=== PATIENT | female | born 1955 | race Caucasian/White ===

== ENCOUNTER → 2019-06-19 | Outpatient (CLI) | payer MEDICARE, SELFPAY | PROVIDERS: Family Provider Family Medicine; Visit Provider Family Medicine | DX: Z12.31 Encounter for screening mammogram for malignant neoplasm of breast (principal) | CPT/HCPCS: 77067 ==

== ENCOUNTER 2019-07-27 06:28 | Outpatient (REF) | payer MEDICARE, SELFPAY ==
[2019-07-27 09:38] LABS: Estmated Average Glucose 134; Hemoglobin A1C 6.3 % (4.0-6.0)
[2019-07-27 11:10] LABS: Cholesterol 237 mg/dL (0-200); Glucose 103 mg/dL (65-115); HDL Cholesterol 103 mg/dL (60-100); LDL Cholesterol Calculated 112 mg/dL (50-129); LDL HDL Ratio 1.09 RATIO (0.00-3.22); Triglycerides 112 mg/dL (0-150)
== END 2019-07-27 06:29 | disposition home or self-care (01) ==
LOC: LAB 06:28
PROVIDERS: Family Provider Family Medicine; Visit Provider Dermatology
DX: Z01.89 Encounter for other specified special examinations (principal)
CPT/HCPCS: 80061; 82947; 83036

== ENCOUNTER 2020-04-21 12:03 | Outpatient (CLI) | payer MEDICARE, SELFPAY ==
--- NOTE | 2020-04-21 12:14 | XRR_ITS ---
PROCEDURE INFORMATION: Exam: XR Cervical Spine, 2 or 3 Views Exam date and time: 04/21/2020 12:31 PM Age: 65 years old Clinical indication: Neck pain; Additional info: Pain in neck TECHNIQUE: Imaging protocol: XR of the cervical spine, 3 views. Other technique: AP, lateral and AP open mouth odontoid views of the cervical spine are submitted. COMPARISON: CR Cervical Spine AP/Lat* [id number] 03/22/2017 10:12 AM FINDINGS: Bones/joints: 2.5 mm C3-C4 anterolisthesis. Moderate left C3-C4, right C4-C5 primary facet osteoarthritis. There is 3.4 mm anterolisthesis of C4 on C5, mild-moderate spondylosis. C5-6 and C6-7 degenerative disc disease with moderate spondylosis, slight retrolistheses. Soft tissues: Unremarkable. Dental: Edentulous maxilla and mandible. Other findings: Bilateral C5-C6 uncovertebral hypertrophy. XR/XR cervical spine 3V* [id number] IMPRESSION: 1. Degenerative changes as above. 2. No acute thoracic spinal bony abnormality identified.
== END 2020-04-21 12:04 | disposition home or self-care (01) ==
LOC: RAD 12:08
PROVIDERS: PCP Internal Medicine; Visit Provider Internal Medicine
DX: M54.2 Cervicalgia (principal)
CPT/HCPCS: 72040

== ENCOUNTER 2020-05-06 13:06 | Outpatient (CLI) | payer MEDICARE, SELFPAY ==
--- NOTE | 2020-05-06 13:12 | MR_ITS ---
WS: [id number] MRI CERVICAL SPINE HISTORY: SPONDYLOLYSIS OF CERVICAL SPINE COMPARISON: None available. C3 anterolisthesis by 2 mm and C4 anterolisthesis by 3 mm. Mild retrolisthesis of C5. Advanced degene rative disc disease at C5-6 and C6-7. Signal within the cervical cord is normal. Visualized posterior fossa is unremarkable. Craniocervical junction, C1 and C2 relationship, odontoid process and soft tissues are normal. C2-C3: Normal. C3-C4: Mild annular disc bulging with a shallow LEFT foraminal disc protrusion causing mild narrowing . C4-C5: Mild osteophytic ridging and annular disc bulging. Mild bilateral foraminal narrowing. C5-C6: Mild osteophytic ridging with mild encroachment upon the ventral thecal sac. Larger osteophyte encroaches into the LEFT foramen with mild stenosis. C6-C7: Mild osteophytic ridging without significant stenosis. C7-T1: Small central osteophyte or disc. No significant stenosis. Paraspinal soft tissue are normal. MR/MR cervical spin wo con* [id number] IMPRESSION: 1. Multilevel spondylitic changes, most significant at C5-6 and C6-7. 2. Mild anterolisthesis of C3 and C4. 3. No high-grade central stenosis. 4. Mild LEFT foraminal stenosis at C3-4 and C5-C6. Mild bilateral foraminal st enosis at C4-5.
== END 2020-05-06 13:07 | disposition home or self-care (01) ==
LOC: RADSHAW 13:10
PROVIDERS: PCP Internal Medicine; Visit Provider Nurse Practitioner Family
DX: M43.02 Spondylolysis, cervical region (principal); M48.02 Spinal stenosis, cervical region
CPT/HCPCS: 72141

== ENCOUNTER → 2020-05-08 10:41 | Outpatient (BNVA) | payer MEDICARE, SELFPAY | PROVIDERS: PCP Internal Medicine; Visit Provider Specialist | DX: R20.9 Unspecified disturbances of skin sensation (principal); R20.0 Anesthesia of skin; R20.2 Paresthesia of skin | CPT/HCPCS: 95910 ==

== ENCOUNTER 2020-05-19 13:39 | Outpatient (CLI) | payer MEDICARE, SELFPAY ==
--- NOTE | 2020-05-19 13:52 | XR_ITS ---
WS: [id number] DEXA (DUAL ENERGY X-RAY ABSORPTIOMETRY) Bone mineral density was performed using a [employer] machine. HISTORY: OSTEOPOROSIS COMPARISON: None available. Lumbar spine BMD (L1-L4): 1.047 g/cm2 T score: -1.1 Z score: 0.6 Total hip BMD: Left: 0.835 g/cm2. T score: -1.4 Z score: -0.1 Right: 0.850 g/cm2. T score: -1.3 Z score: 0.1 10 year probability of a major osteoporotic fracture is 10%. XR/XR DEXA axial skeleton* [id number] IMPRESSION: OSTEOPENIA based upon the WHO classification for females.
== END 2020-05-19 13:40 | disposition home or self-care (01) ==
LOC: RADWPI 13:44
PROVIDERS: PCP Internal Medicine; Visit Provider Internal Medicine
DX: M81.0 Age-related osteoporosis without current pathological fracture (principal); M85.89 Other specified disorders of bone density and structure, multiple sites
CPT/HCPCS: 77080

== ENCOUNTER 2020-06-25 10:51 | Outpatient (CLI) | payer MEDICARE, SELFPAY ==
--- NOTE | 2020-06-25 10:59 | MM_ITS ---
WS: [id number] BILATERAL SCREENING DIGITAL MAMMOGRAM WITH CAD HISTORY: SCREENING COMPARISON: 06/19/2019, 05/03/2018 and 04/21/2017 Bilateral CC and MLO views submitted. Computer aided detection analyzed. Breast composition: The breasts are extremely dense, which lowers the sensitivity of mammography. No suspicious masses, microcalcifications or architectural distortion. Stable 12 mm asymmetry in the med ial RIGHT breast seen best on the CC projection. Also noted on 05/03/2018 with no change. Bilateral s cattered calcifications are similar to prior studies. MM/[place] [id number] IMPRESSION: BI-RADS: 2-Benign FOLLOW UP: 1 Year Follow-up
== END 2020-06-25 10:52 | disposition home or self-care (01) ==
LOC: RADSHAW 10:58
PROVIDERS: PCP Internal Medicine; Visit Provider Internal Medicine
DX: Z12.31 Encounter for screening mammogram for malignant neoplasm of breast (principal)
CPT/HCPCS: 77067

== ENCOUNTER 2020-07-23 07:48 | Outpatient (CLI) | payer MEDICARE, SELFPAY ==
--- NOTE | 2020-07-23 08:10 | XR_ITS ---
WS: [id number] CERVICAL SPINE FLEXION EXTENSION TECHNIQUE: 3 views of the cervical spine: lateral neutral, flexion and extension views. CLINICAL INFORMATION: SPONDYLOLITHESIS CERVICAL REGION COMPARISON: None. FINDINGS: Straightening of the normal cervical lordosis. 3.4 mm anterolisthesis C3 on C4 and 3.6 mm anterolisth esis C4 on C5 in the neutral position. This increases slightly on flexion worse at C4-5 measuring 4.1 mm. This decreases on extension. Moderate spondylitic changes. Disc space narrowing worse at C5-C6 and C6-C7. Normal C1-2 articulation . XR/XR cervical spine fl/ex [id number] IMPRESSION: 1. Mild flexion instability at C3-C4 and C4-C5 worse at C4-5 described above. 2. Moderate spondylitic changes. 3. Disc space narrowing worse at C5-C6 and C6-C7.
== END 2020-07-23 07:49 | disposition home or self-care (01) ==
PROVIDERS: PCP Internal Medicine; Visit Provider Nurse Practitioner
DX: M43.12 Spondylolisthesis, cervical region (principal); M53.2X2 Spinal instabilities, cervical region
CPT/HCPCS: 72040

== ENCOUNTER 2021-09-15 09:03 | Outpatient (CLI) | payer MEDICARE, SELFPAY ==
--- NOTE | 2021-09-15 09:15 | MM_ITS ---
WS: [id number] BILATERAL SCREENING 3D TOMOSYNTHESIS DIGITAL MAMMOGRAM WITH CAD HISTORY: SCREENING COMPARISON: 06/25/2020 and 06/19/2019 Bilateral CC and MLO views submitted. Computer aided detection analyzed. Breast composition: The breasts are extremely dense, which lowers the sensitivity of mammography. No suspicious masses, microcalcifications or architectural distortion. Benign calcifications upper outer quadrant LEFT breast. MM/[place] [id number] IMPRESSION: BI-RADS: 2-Benign FOLLOW UP: 1 Year Follow-up
== END 2021-09-15 09:04 | disposition home or self-care (01) ==
LOC: RADSHAW 09:04
PROVIDERS: PCP Internal Medicine; Visit Provider Internal Medicine
DX: Z12.31 Encounter for screening mammogram for malignant neoplasm of breast (principal)
CPT/HCPCS: 77063; 77067

== ENCOUNTER 2022-04-20 06:00 | Outpatient (RCR) | payer MEDICARE, SELFPAY | END 2022-05-19 23:59 | disposition home or self-care (01) | LOC: SPT 06:00 | PROVIDERS: PCP Internal Medicine; Visit Provider Internal Medicine | DX: M43.02 Spondylolysis, cervical region (principal); M54.2 Cervicalgia | CPT/HCPCS: 97110; 97140; 97161 ==

== ENCOUNTER 2022-09-15 08:03 | Outpatient (CLI) | payer MEDICARE, SELFPAY ==
--- NOTE | 2022-09-15 08:13 | CT_ITS ---
WS: [id number] CT CALCIUM SCORE REASON FOR VISIT: FAMILY HISTORY OF OTHER CARDIOVASCULAR DISEASES; Coronary artery disease risk asse ssment COMPARISON: None TECHNIQUE: Noncontrast coronary CT in combination with quantitative analysis performed on a separate workstation were used to determine CACS (Agatston score) TOTAL EXAM DOSE: 45.06 mGy.cm ECG GATING: Prospective SCAN RANGE: Pulmonary artery bifurcation to Inferior aspect of heart COMPLICATIONS: None FINDINGS: Technical Quality/Examination Quality: Good Limitaiton: None OVERALL SCORES Total calcium score: 1045 Total volume score: 805 mm3 Percentile: 90th to 100 percentile for females between the ages of 65 and 69 ARTERY SCORES Left main coronary artery: 494 Left anterior descending artery: 47 Left circumflex artery: 23 Right coronary artery: 449 OTHER FINDINGS: Mediastinum: No mediastinal or hilar lymphadenopathy. Thoracic aorta: Slightly ectatic ascending thoracic aorta measuring 3.3 CM. Normal caliber descendin g thoracic aorta. Lungs: Normal. Upper Abdomen: Normal GE junction. MINIMAL: 1-10 MILD: 11-100 MODERATE: 101-400 SEVERE:>400 CT/CT heart w calcium score [id number] IMPRESSION: Severe coronary artery disease based on total calcium score correct ed for patient's age and gender GRADING OF CORONARY ARTERY DISEASE (BASED ON TOTAL CALCIUM SCORE) NO EVIDENCE OF CAD: 0 calcium score
== END 2022-09-15 08:04 | disposition home or self-care (01) ==
PROVIDERS: PCP Internal Medicine; Visit Provider Internal Medicine
DX: Z82.49 Family history of ischemic heart disease and other diseases of the circulatory system (principal)
CPT/HCPCS: 75571

== ENCOUNTER 2022-09-24 11:05 | Outpatient (CLI) | payer MEDICARE, SELFPAY ==
--- NOTE | 2022-09-24 11:16 | MM_ITS ---
WS: [id number] BILATERAL SCREENING DIGITAL TOMOSYNTHESIS MAMMOGRAM WITH CAD HISTORY: SCREENING COMPARISON: 09/15/2021, 06/25/2020 Bilateral CC and MLO views with tomosynthesis and synthetic mammography submitted. Computer aided det ection analyzed. Breast composition: The breasts are extremely dense, which lowers the sensitivity of mammography. No suspicious masses, microcalcifications or architectural distortion. Benign clusters of calcifications in the lateral aspect of each breast. Additional scattered cysts benign calcifications. MM/[place] [id number] IMPRESSION: BI-RADS: 2-Benign FOLLOW UP: 1 Year Follow-up
== END 2022-09-24 11:06 | disposition home or self-care (01) ==
PROVIDERS: PCP Internal Medicine; Visit Provider Internal Medicine
DX: Z12.31 Encounter for screening mammogram for malignant neoplasm of breast (principal)
CPT/HCPCS: 77063; 77067

== ENCOUNTER → 2022-10-05 10:16 | Outpatient (BNVA) | payer MEDICARE, SELFPAY | PROVIDERS: PCP Internal Medicine; Referring Provider Internal Medicine; Visit Provider Anesthesiology Pain Medicine | DX: M54.12 Radiculopathy, cervical region (principal); M47.812 Spondylosis without myelopathy or radiculopathy, cervical region; R20.0 Anesthesia of skin; R20.2 Paresthesia of skin | CPT/HCPCS: 72050; 99204 ==

== ENCOUNTER → 2022-10-19 08:38 | Outpatient (BNVA) | payer MEDICARE, SELFPAY | PROVIDERS: PCP Internal Medicine; Visit Provider Anesthesiology Pain Medicine | DX: M79.18 Myalgia, other site (principal); M47.812 Spondylosis without myelopathy or radiculopathy, cervical region; R20.0 Anesthesia of skin; R20.2 Paresthesia of skin | CPT/HCPCS: 20553; 99213 ==

== ENCOUNTER → 2022-11-10 13:18 | Outpatient (BNVA) | payer MEDICARE, SELFPAY | PROVIDERS: PCP Internal Medicine; Visit Provider Internal Medicine | DX: R07.9 Chest pain, unspecified (principal); I10 Essential (primary) hypertension; E78.5 Hyperlipidemia, unspecified; Z82.49 Family history of ischemic heart disease and other diseases of the circulatory system; I25.10 Atherosclerotic heart disease of native coronary artery without angina pectoris | CPT/HCPCS: 93005; 99204 ==

== ENCOUNTER → 2022-11-22 08:41 | Outpatient (BNVA) | payer MEDICARE, SELFPAY | PROVIDERS: PCP Internal Medicine; Visit Provider Anesthesiology Pain Medicine | DX: M47.812 Spondylosis without myelopathy or radiculopathy, cervical region (principal); R20.0 Anesthesia of skin; R20.2 Paresthesia of skin | CPT/HCPCS: 99214 ==

== ENCOUNTER 2022-11-30 09:29 | Outpatient (CLI) | payer MEDICARE, SELFPAY ==
--- NOTE | 2022-11-30 | ECG_ITS ---
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 Interpretive Statements NAME OF STUDY: EXERCISE SESTAMIBI STRESS TEST INDICATION: [Chest Pain] EXERCISE DATA: The patient was exercised by Phil protocol. Baseline heart rate was 78 beats per minute. Baseline blood pressure was 111/65 millimeters of mercury. Target heart rate was 131 beats per minute. Maximum heart rate achieved was 147 which was 112% of the target heart rate. Maximum blood pressure was 124/54 millimeters of mercury. Total exercise time was 3 minutes 29 seconds. Maximum METs achieved was 4.6. The reason for ending the test was target heart rate achieved. The patient complained of shortness of breath during the stress test, which then resolved at the end of the test. ELECTROCARDIOGRAM: BASELINE: Showed sinus rhythm, normal axis, no significant ST-T changes at the baseline noted. [] EXERCISE: At the peak exercise level, [] No significant ST-T changes suggestive of ischemia noted. PVCs are seen. [] RECOVERY: During the recovery period, heart rate dropped appropriately. No significant ST-T changes in the recovery suggestive of ischemia noted. [] CONCLUSION: 1. Exercise capacity is poor. 2. Heart rate response was appropriate 3. Blood pressure response was appropriate 4. Symptoms not suggestive of ischemia. 5. Electrocardiogram portion of the stress test was not suggestive of ischemia. 6. Nuclear scan will be documented separately. Electronically Signed On 12-10-2022 14:44:37 CDT by Piyush Macias M.D. [id number]
[2022-11-30 09:50] VITALS: BMI 24.7
--- NOTE | 2022-11-30 09:51 | NMCV_ITS ---
NM ventura perf SPECT r/s* [id number] Melanie Ko Age: 67 Gender: F : 1955 Exam Date: 11/30/2022 10:55 Ordering Phys: Piyush Macias M.D ([email or web address]) Technologist: RAIZA Ibanez Exam Location: [facility] Indications: CHEST PAIN STRESS TEST Please [facility] IMAGE PROTOCOL Rest/Stress 1 Exercise Day Radiopharmaceutical Dose (mCi) Administration Site Administered by Rest: Tc-99m 10.4 IV Anand Gaines, BAKERY HELPER Sestamibi Stress:Tc-99m 32.7 IV Anand Gaines, BAKERY HELPER Sestamibi Rest: 30-Nov-2022 60 Discovery 630 Stress: 30-Nov-2022 15 Discovery 630 Radiopharmaceutical was injected at 85 % maximum heart rate. Images obtained in supine and prone position. SPECT RESULTS Technical Quality: Excellent Raw Data Analysis: Normal Image Corrections: No attenuation or motion correction applied Summed Stress Score: 0 Summed Rest Score: 0 Summed Difference Score: 0 PERFUSION FINDINGS SPECT images demonstrate homogeneous tracer distribution throughout the myocardium. FUNCTIONAL RESULTS (calculated via Gated SPECT) Stress Image LV EF (%): 89 Stress EDV (mL):44 TID: 0.96 Stress ESV (mL):5 FUNCTIONAL FINDINGS: There is normal left ventricular systolic function. IMPRESSIONS 1. Normal myocardial perfusion imaging with no evidence of ischemia 2. LV systolic function is normal Piyush Macias MD (Electronically Signed) Final Date: 06 December 2022 17:39 S
[2022-11-30 12:30] VITALS: BP 157/86; PULSE 91
--- NOTE | 2022-11-30 14:30 | USCV_ITS ---
Melanie Ko Age: 67 Gender: F : 1955 Exam Date: 11/30/2022 10:29 Ordering Phys: Piyush Macias M.D ([email or web address]) Technologist: Dannie Jennings Exam Location: [facility] [place] Indication: chest pain BP: 120 / 70 HR: 72 Rhythm: Sinus Technical Quality: Adequate MEASUREMENTS (Male / Female) Normal Values 2D ECHO LV Diastolic Diameter PLAX 3.7 cm 4.2 - 5.9 / 3.9 - 5.3 cm LV Systolic Diameter PLAX 2.0 cm IVS Diastolic Thickness 1.0 cm 0.6 - 1.0 / 0.6 - 0.9 cm IVS Systolic Thickness 1.4 cm LVPW Diastolic Thickness 0.8 cm 0.6 - 1.0 / 0.6 - 0.9 cm LVPW Systolic Thickness 1.4 cm LVOT Diameter 2.0 cm LV Ejection Fraction 2D Teich 72.6 % LV Ejection Fraction MOD 2C 77.7 % LV Ejection Fraction 2C AL 77.7 % LA Diameter 3.4 cm Aorta at Sinotubular Diameter 2.7 cm IVC Diameter 0.7 cm M-MODE Aortic Annulus Diameter 3.2 cm LA Ao Ratio MM 1.1 MV E Point Septal Separation 0.5 cm DOPPLER AV Peak Velocity 127.0 cm/s LVOT Peak Velocity 91.0 cm/s AV Area Cont Eq vti 2.6 cm squared AV Area Cont Eq pk 2.3 cm squared MV Area PHT 5.4 cm squared Mitral E to A Ratio 1.1 MV E' Velocity 50.0 cm/s Mitral E to MV E' Ratio 7.7 Mitral E to LV E' Lateral Ratio 8.2 Mitral E to LV E' Septal Ratio 7.4 TR Peak Velocity 194.7 cm/s TR Peak Gradient 15.2 mmHg TV Peak E Velocity 111.0 cm/s Right Atrial Pressure 3.0 mmHg Pulmonary Artery Systolic Pressu 18.2 mmHg RV Acceleration Time 0.2 s FINDINGS Left Ventricle Left ventricle is normal size. LV systolic function is normal with EF of 60-65%. No regional wall motion abnormalities are seen. Right Ventricle Normal in size and function Right Atrium Normal in size Left Atrium Normal in size Mitral Valve Structurally normal mitral valve. Mild mitral regurgitation. Aortic Valve Structurally normal aortic valve. No significant stenosis or regurgitation. Tricuspid Valve Mild tricuspid regurgitation. Pulmonary artery systolic pressure is normal. Pulmonic Valve Not well-visualized Pericardium Normal Aorta Normal in size IVC Appears to be normal CONCLUSIONS LV systolic function is normal with EF of 60 to 65%. Mild mitral regurgitation Mild tricuspid regurgitation No comparisons are available Piyush Macias MD (Electronically Signed) Final Date: 11 December 2022 13:12 S
== END 2022-11-30 09:30 | disposition home or self-care (01) ==
LOC: CDL 09:29
PROVIDERS: PCP Internal Medicine; Visit Provider Internal Medicine
DX: R07.9 Chest pain, unspecified (principal); I34.0 Nonrheumatic mitral (valve) insufficiency; I07.1 Rheumatic tricuspid insufficiency; R06.02 Shortness of breath
CPT/HCPCS: 36415; 78452; 93017; 93306; A9500

== ENCOUNTER → 2022-12-28 08:50 | Outpatient (BNVA) | payer MEDICARE, SELFPAY | PROVIDERS: PCP Internal Medicine; Visit Provider Anesthesiology Pain Medicine | DX: M79.18 Myalgia, other site (principal); M47.812 Spondylosis without myelopathy or radiculopathy, cervical region; R20.0 Anesthesia of skin; R20.2 Paresthesia of skin | CPT/HCPCS: 20553; 99214 ==

== ENCOUNTER → 2023-01-12 14:05 | Outpatient (BNVA) | payer MEDICARE, SELFPAY | PROVIDERS: PCP Internal Medicine; Visit Provider Internal Medicine | DX: I25.10 Atherosclerotic heart disease of native coronary artery without angina pectoris (principal); Z87.891 Personal history of nicotine dependence | CPT/HCPCS: 99214 ==

== ENCOUNTER 2023-02-09 14:48 | Emergency (ER) | payer MEDICARE, SELFPAY ==
[2023-02-09 14:55] VITALS: BP 131/70; PULSE 88; RESP 15; TEMP 36.4; O2SAT 97; BMI 24.0
[2023-02-09 15:01] LABS: Glucose Point of Care 117 mg/dL (70-110)
--- NOTE | 2023-02-09 15:02 | ECG_ITS ---
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 Measurements Intervals [place] Rate: 87 P: 66 MO: 160 QRS: 58 QRSD: 82 T: 63 QT: 358 QTc: 431 Interpretive Statements SINUS RHYTHM POSSIBLE LEFT ATRIAL ENLARGEMENT [-0.1mV P-WAVE IN V1/V2] Compared to ECG 11/10/2022 13:28:29 No significant changes Electronically Signed On 02-09-2023 20:06:18 CDT by Tari Maldonado M.D. [id number] f
--- NOTE | 2023-02-09 15:06 | CT_ITS ---
WS: [id number] CT HEAD TECHNIQUE: Noncontrast CT of the head obtained from the skullbase to the vertex. CLINICAL INFORMATION: ams, dizziness COMPARISON: None. DLP: 1177.[address] scans at [facility] use at least one of these dose optimization techniques: automated e xposure control; mA and/or kV adjustment per patient size (includes targeted exams where dose is matc hed to clinical indication); or iterative reconstruction. FINDINGS: No evidence of intracranial hemorrhage or mass effect. Ventricular system and basal cisterns are medina nt. Moderate small vessel changes. Moderate parenchymal volume loss. Tiny chronic lacunar infarcts in the LEFT thalamus. Cavernous carotid calcification. Mild mucosal thickening in the ethmoid air cells and sphenoid sinuses. Mucosal thickening LEFT mastoi d tip. RIGHT mastoid air cells well aerated. Normal posterior nasopharynx. IMPRESSION: 1. No evidence of intracranial hemorrhage or mass effect. 2. Moderate small vessel changes. Moderate parenchymal volume loss. 3. Tiny chronic lacunar infarcts LEFT thalamus. 4. Intracranial vascular calcification. 5. No acute intracranial findings.
[2023-02-09 15:12] VITALS: BP 131/70; PULSE 76; RESP 16; O2SAT 97
[2023-02-09 15:35] LABS: Basophils # 0.1 10^3/uL (0.0-0.1); Basophils % 0.7 %; Eosinophils # 0.1 10^3/uL (0.0-0.8); Eosinophils % 1.1 %; Hematocrit 38.2 % (36-47); Lymphocytes % 27.2 %; Mean Corpuscular HGB Conc 31.7 g/dL (30-55); Mean Corpuscular Hemoglobin 29.7 pg (27-33); Mean Corpuscular Volume 93.6 fl (85-98); Mean Platelet Volume 11.9 fL (7.4-10.4); Monocytes # 0.5 10^3/uL (0.2-0.9); Monocytes % 6.4 %; Neutrophils # 4.85 10^3/uL (1.8-7.7); Neutrophils % 64.5 %; Nucleated Red Blood Cells % 0 %; Platelet Count 247 10^3/cmm (157-399); Red Blood Count 4.08 10^6/uL (3.85-5.65); Red Cell Distribution Width 13.1 % (12.1-15.1); White Blood Count 7.51 10^3/uL (3.29-11.43)
[2023-02-09 15:37] LABS: Troponin(5th) Baseline 15 ng/L (0-10)
[2023-02-09 15:39] LABS: Alanine Aminotransferase 12 U/L (0-33); Albumin Level 4.8 g/dL (3.5-5.2); Alkaline Phosphatase 56 U/L (35-105); Anion Gap 19.8 (5-19); Aspartate Amino Transferase 24 U/L (0-32); Blood Urea Nitrogen 33 mg/dL (8-23); Calcium 10.3 mg/dL (8.5-10.5); Carbon Dioxide 26 mmol/L (22-29); Chloride 96 mmol/L (98-107); Globulin 3.1 g/dL (1.3-4.6); Glomerular Filtration Rate 28.2 mL/min (90-130); Glucose 126 mg/dL (65-115); Osmolality Calculated 295 mOsm/kg (285-295); Potassium 3.8 mmol/L (3.5-5.1); Sodium 138 mmol/L (136-145); Total Bilirubin 0.2 mg/dL (0.15-1.2); Total Protein 7.9 g/dL (6.6-8.7)
--- NOTE | 2023-02-09 16:01 | W.ED.AMS ---
HPI - Altered Mental Status General: Chief Complaint: Altered Mental Status Stated Complaint: AMS Time Seen by Provider: 02/09/23 14:53 History of Present Illness: To the ER with complaints of not feeling good. She just feels disorientated and off. Patient said she was fine for breakfast and about 2 hours later she started vomiting became dizzy and just progressed downhill from there. Patient cannot really elicit exact findings but she does feels not right possibly mild confusion. This was confirmed by her . Review of Systems General: Reports: 10 or more systems reviewed and unremarkable except in HPI and below PFSH ED PFSH: Social History Smoking and tobacco status: former smoker Quit status (tobacco): has quit using tobacco Second hand smoke exposure: No Smoking risk assessment/counseling performed?: No Alcohol intake: never Desire information about alcohol rehabilitation?: No Counseling given: No Substance/Drug Use: never Lives independently: Yes Household members: spouse Marital status: Highest education level completed: High School Graduate Special andreina needs: No Physical Exam Const: COMMON NORMALS: no acute distress, no limitations, healthy appearing, alert and well nourished HENMT: COMMON NORMALS: normocephalic, atraumatic, hearing grossly normal bilaterally, external ears normal, Normal external nose present and moist oral mucous membranes HEAD & SCALP: normocephalic and atraumatic NOSE: Normal external nose present EXTERNAL EAR: Yes external ears normal Eye: COMMON NORMALS: Equal, round and reactive pupils present, EOMs intact bilaterally, conjunctivae normal and no scleral icterus CONJUNCTIVA: Yes conjunctivae normal PUPIL: Yes Equal, round and reactive pupils present Neck/C-Spine: COMMON NORMALS: full ROM, no lymphadenopathy, supple, no meningeal signs, no JVD and Thyroid normal THYROID: Thyroid normal Lymph: LYMPHATIC: no lymphadenopathy noted and no lymphedema noted Chest: COMMONS NORMALS: normal inspection of the chest and normal palpation of entire chest wall Resp: COMMON NORMALS: normal respiratory effort, No retractions, No use of accessory muscles and clear to auscultation bilaterally AUSCULTATION: clear to auscultation bilaterally Cardio: COMMON NORMALS: no JVD, regular rate, regular rhythm, S1 normal heart sound present, S2 normal heart sound present, No gallops present (Cardio), No clicks present (Cardio), No murmurs present (Cardio) and No rub (Cardio) RATE: regular rate RHYTHM: regular rhythm HEART SOUNDS: S1 normal heart sound present and S2 normal heart sound present GI: COMMON NORMALS: Normal to inspection, nondistended, normoactive bowel sounds present, Soft to palpation, non-tender, No hepatosplenomegaly present and no masses PALPATION: Yes Soft to palpation and Yes No hepatosplenomegaly present : COMMON NORMALS: Yes no CVA tenderness BLADDER/KIDNEY EXAM: Yes no CVA tenderness Back/Pelvis: COMMON NORMALS: no CVA tenderness Neuro: SENSORIUM/ORIENTATION: Yes alert MENINGEAL SIGNS: Yes no meningeal signs Course Vital Signs: Vital signs: Vital Signs Temperature 97.5 F L 02/09/23 14:55 Pulse Rate 76 02/09/23 15:12 Respiratory Rate 16 02/09/23 15:12 Blood Pressure 131/70 02/09/23 15:12 Pulse Oximetry 97 02/09/23 15:12 Oxygen Delivery Me thod Room Air 02/09/23 14:55 MDM - Altered Mental Status Medical Decision Making Presents to the ER with complaints of just being off and having altered mental status. But cannot really elicit any more information on that. Lab work was obtained as well as EKG serial troponins and head CT all of which are essentially benign. Patient's BUN/creatinine was slightly elevated at 3 and 1.8. Patient was given 2 L of normal saline in the ER for she is able to produce urine. Urine was negative. Had an extensive talk about these labs with her and her . Patient will go home and see if things resolve on her own. Patient knows she can come back here at any time for further evaluation and treatment. Differential Diagnosis Likely altered mental status; Unlikely alcoholic intoxication, delirium, dementia, hypoglycemia, hyponatremia, subarachnoid hemorrhage or sepsis Medical Records I reviewed the patient's medical records. Lab Data I reviewed the patient's lab results. 02/09/23 14:51 02/09/23 14:51 Laboratory Results WBC 7.51 10^3/uL (3.29-11.43) 02/09/23 14:51 RBC 4.08 10^6/uL (3.85-5.65) 02/09/23 14:51 Hgb 12.10 g/dL (11.27-16.99) 02/09/23 14:51 Hct 38.2 % (36-47) 02/09/23 14:51 MCV 93.6 fl (85-98) 02/09/23 14:51 MCH 29.7 pg (27-33) 02/09/23 14:51 MCHC 31.7 g/dL (30-55) 02/09/23 14:51 RDW 13.1 % (12.1-15.1) 02/09/23 14:51 Plt Count 247 10^3/cmm (157-399) 02/09/23 14:51 MPV 11.9 fL (7.4-10.4) H 02/09/23 14:51 Neut % (Auto) 64.5 % 02/09/23 14:51 Lymph % (Auto) 27.2 % 02/09/23 14:51 Menard % (Auto) 6.4 % 02/09/23 14:51 Eos % (Auto) 1.1 % 02/09/23 14:51 Baso % (Auto) 0.7 % 02/09/23 14:51 Neut # (Auto) 4.85 10^3/uL (1.8-7.7) 02/09/23 14:51 Lymph # (Auto) 2.0 10^3/uL (0.8-4.8) 02/09/23 14:51 Menard # (Auto) 0.5 10^3/uL (0.2-0.9) 02/09/23 14:51 Eos # (Auto) 0.1 10^3/uL (0.0-0.8) 02/09/23 14:51 Baso # (Auto) 0.1 10^3/uL (0.0-0.1) 02/09/23 14:51 Nucleated RBC % (auto) 0 % 02/09/23 14:51 Nucleated RBCs # 0.0 /100WBC 02/09/23 14:51 Sodium 138 mmol/L (136-145) 02/09/23 14:51 Potassium 3.8 mmol/L (3.5-5.1) 02/09/23 14:51 Chloride 96 mmol/L (98-107) L 02/09/23 14:51 Carbon Dioxide 26 mmol/L (22-29) 02/09/23 14:51 Anion Gap 19.8 (5-19) H 02/09/23 14:51 BUN 33 mg/dL (8-23) H 02/09/23 14:51 Creatinine 1.8 mg/dL (0.5-0.9) H 02/09/23 14:51 GFR Calculation 28.2 mL/min (90-130) L 02/09/23 14:51 Glucose 126 mg/dL (65-115) H 02/09/23 14:51 POC Glucose 117 mg/dL (70-110) H 02/09/23 14:58 Calculated Osmolality 295 mOsm/kg (285-295) 02/09/23 14:51 Calcium 10.3 mg/dL (8.5-10.5) 02/09/23 14:51 Magnesium 2.0 mg/dL (1.7-2.3) 02/09/23 14:51 Total Bilirubin 0.2 mg/dL (0.15-1.2) 02/09/23 14:51 AST 24 U/L (0-32) 02/09/23 14:51 ALT 12 U/L (0-33) 02/09/23 14:51 Alkaline Phosphatase 56 U/L (35-105) 02/09/23 14:51 Troponin T Baseline 15 ng/L (0-10) H 02/09/23 14:51 Troponin T 120 Minute 14.15 ng/L (0-10) H 02/09/23 17:09 Delta Troponin T -0.85 ABS# (0-10) L 02/09/23 17:09 C-Reactive Protein 3.0 mg/L (0.0-4.9) 02/09/23 14:51 Total Protein 7.9 g/dL (6.6-8.7) 02/09/23 14:51 Albumin 4.8 g/dL (3.5-5.2) 02/09/23 14:51 Globulin 3.1 g/dL (1.3-4.6) 02/09/23 14:51 Urine Color Yellow (Yellow) 02/09/23 17:45 Urine Appearance Clear (CLEAR) 02/09/23 17:45 Urine pH 5 (5-7) 02/09/23 17:45 Ur Specific [place] 1.015 (1.005-1.030) 02/09/23 17:45 Urine Protein Neg (Negative) 02/09/23 17:45 Urine Glucose (UA) Norm (Normal) 02/09/23 17:45 Urine Ketones 2+ (Negative) H 02/09/23 17:45 Urine Blood Neg (Negative) 02/09/23 17:45 Urine Nitrate Negative (Negative) 02/09/23 17:45 Urine Bilirubin Neg (Negative) 02/09/23 17:45 Urine Urobilinogen Norm mg/dL (Negative) 02/09/23 17:45 Ur Leukocyte Esterase Negative (Negative) 02/09/23 17:45 Urine Opiates Screen Positive ng/mL (Negative) H 02/09/23 17:45 Ur Barbiturates Screen Negative ng/mL (Negative) 02/09/23 17:45 Ur Phencyclidine Scrn Negative ng/mL (Negative) 02/09/23 17:45 Ur Amphetamines Screen Negative ng/mL (Negative) 02/09/23 17:45 U Benzodiazepines Scrn Negative ng/mL (Negative) 02/09/23 17:45 Urine Cocaine Screen Negative ng/mL (Negative) 02/09/23 17:45 U Marijuana (THC) Screen Positive ng/mL (Negative) H 02/09/23 17:45 EKG Data EKG 1: I personally reviewed and interpreted this EKG as follows: EKG interpretation date: 02/09/23 EKG interpretation time: 15:02 Prior EKG tracings: not available for review Interpretation: EKG showed ventricular rate 87 beats minute, IL interval 160, QRS duration 82, QTc of 402, sinus rhythm, possible left atrial argument EKG 2: I personally reviewed and interpreted this EKG as follows: EKG interpretation date: 02/09/23 EKG interpretation time: 17:18 Prior EKG tracings: available for review Interpretation: EKG showed ventricular rate 80 bpm, IL interval 175, QRS duration 85, QTc 419, sinus rhythm, no ST-T wave changes Discharge Plan Discharge Patient Disposition: Home Clinical Impression: Altered mental status Qualifiers: Altered mental status type: transient alteration of awareness Qualified Code(s): R40.4 - Transient alteration of awareness Condition: Stable Prescriptions: No Action lisinopril 2.5 mg tablet 2.5 mg PO DAILY levothyroxine [Euthyrox] 25 mcg tablet 50 mcg PO DAILY duloxetine 60 mg capsule,delayed release(DR/EC) 60 mg PO DAILY simvastatin 40 mg tablet 40 mg PO QPM baclofen 20 mg tablet 20 mg PO DAILY PRN (Reason: Pain) Discharge Orders: Discharge ED (Routine); Ordered 02/09/23 Ordered By: Christian Hernandez Referrals: Mony Mariscal MD [Primary Care Provider] - 1 week Patient Instructions: Altered Mental Status (ED) Activity Restrictions/Additional Instructions: Please follow-up with your family practice physician in the next week or sooner as needed. Please return to the ER if symptoms worsen. Coding Level of Care Code ED Safety Sitter for Angelique Torres
[2023-02-09] MEDS: sodium chloride 0.9% 1,000 ML 999 ML IV (16:04)
--- NOTE | 2023-02-09 17:06 | ECG_ITS ---
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 Measurements Intervals [place] Rate: 80 P: 64 WI: 175 QRS: 56 QRSD: 85 T: 60 QT: 383 QTc: 442 Interpretive Statements SINUS RHYTHM Compared to ECG 02/09/2023 15:02:55 No significant changes Electronically Signed On 02-09-2023 20:55:19 CDT by Tari Maldonado M.D. [email or web address], [id number]
[2023-02-09 17:57] LABS: Troponin 5 2HR 14.15 ng/L (0-10)
[2023-02-09 17:58] LABS: Troponin 5 2HR Delta -0.85 ABS# (0-10)
[2023-02-09 18:00] LABS: Add Urine Microscopic? NO; Charge for UA Resulting for Rev
[2023-02-09 18:06] LABS: Bilirubin Urine Neg (Negative); Blood Urine Neg (Negative); Glucose Urine UA Norm (Normal); Ketones Urine 2+ (Negative); Leukocyte Esterase Urine Negative (Negative); Nitrate Urine Negative (Negative); Protein Urine Neg (Negative); Specific Gravity, Urine 1.015 (1.005-1.030); Urine Appearance Clear (CLEAR); Urine Color Yellow (Yellow); Urobilinogen Urine Norm (Negative); pH Urine 5 (5-7)
[2023-02-09 18:15] LABS: Amphetamines Screen Urine Negative (Negative); Barbiturates Screen Urine Negative (Negative); Benzodiazepines Screen Urine Negative (Negative); Cocaine Screen Urine Negative (Negative); Opiate Screen Urine Positive (Negative); PCP Screen Urine Negative (Negative); THC Screen Urine Positive (Negative)
== END 2023-02-09 19:13 | disposition home or self-care (01) ==
PROVIDERS: Emergency Provider Emergency Medicine; PCP Internal Medicine
DX: R40.4 Transient alteration of awareness (principal); Z87.891 Personal history of nicotine dependence
CPT/HCPCS: 36415; 36416; 70450; 80053; 80306; 81003; 82962; 83735; 84484; 85025; 86140; 93005; 99285; J7030

== ENCOUNTER → 2023-03-01 09:04 | Outpatient (BNVA) | payer MEDICARE, SELFPAY | PROVIDERS: PCP Internal Medicine; Visit Provider Anesthesiology Pain Medicine | DX: R20.0 Anesthesia of skin; R20.2 Paresthesia of skin; M47.812 Spondylosis without myelopathy or radiculopathy, cervical region | CPT/HCPCS: 99213 ==

== ENCOUNTER → 2023-03-21 10:02 | Outpatient (BNVA) | payer MEDICARE, SELFPAY | PROVIDERS: PCP Internal Medicine; Visit Provider Anesthesiology Pain Medicine | DX: M79.18 Myalgia, other site (principal); M47.812 Spondylosis without myelopathy or radiculopathy, cervical region; R20.0 Anesthesia of skin; R20.2 Paresthesia of skin; M54.9 Dorsalgia, unspecified | CPT/HCPCS: 20553; 99214; J1030; J3490 ==

== ENCOUNTER → 2023-05-17 12:01 | Outpatient (BNVA) | payer MEDICARE, SELFPAY | PROVIDERS: PCP Internal Medicine; Visit Provider Emergency Medicine | DX: M12.511 Traumatic arthropathy, right shoulder (principal) | CPT/HCPCS: 73030 ==

== ENCOUNTER → 2023-05-23 09:15 | Outpatient (BNVA) | payer MEDICARE, SELFPAY | PROVIDERS: PCP Internal Medicine; Visit Provider Anesthesiology Pain Medicine | DX: M79.18 Myalgia, other site (principal); R20.0 Anesthesia of skin; R20.2 Paresthesia of skin; M47.812 Spondylosis without myelopathy or radiculopathy, cervical region | CPT/HCPCS: 20553; 99214; J1030; J3490 ==

== ENCOUNTER 2023-08-08 08:34 | Outpatient (CLI) | payer MEDICARE, SELFPAY ==
--- NOTE | 2023-08-08 08:41 | MR_ITS ---
WS: [id number] MRI RIGHT SHOULDER HISTORY: PAIN IN R SHOULDER/ROTATOR CUFF TEAR VS ?FRACTURE COMPARISON: Radiograph 05/17/2023 TECHNIQUE: Multiplanar sequences of the shoulder joint are submitted. Patient was in significant pain during this MRI evaluation. Some of the sequences are limited by bia on. Marrow edema in the humeral head extending into the proximal humerus. There is a concave defect in th e posterolateral humeral head with an associated avulsion fracture. This is a site of the greatest am ount of edema. Humeral head is high riding also nearly abutting the undersurface of the acromion. Mild AC joint arthritis. There is a small amount of edema with fluid extending to the AC joint. No os acromiale. Normal position of the biceps tendon. Moderate subacromial impingement upon the humeral head. There is abnormal signal involving the distal supraspinatus tendon beginning at the level of the acromion. Insertion site tear near the avulsion f racture. There is significant fraying along the supraspinatus tendon and tendinopathy. No retraction of the tendon. Infraspinatus and subscapularis tendons are intact. There is a large amount of fluid i n the subscapularis bursa. Mild fluid distention of the axillary pouch. Abnormal signal through the anterior labrum. Highly suspicious for an anterior labral tear. No fractu re or marrow edema in the glenoid. IMPRESSION: 1. Acute trabecular injury and fracture involving the posterolateral humeral head. There is a defect in the posterolateral humeral head with the evulsion fracture which could potentially be a Hill-Sach s impaction fracture. 2. Subacromial impingement upon the supraspinatus tendon. 3. Distal tendinopathy with fraying of the supraspinatus tendon. 4. Insertion site of the supraspinatus tendon is at the site of the acute impaction fracture. 5. Avulsed anterior labrum. No glenoid edema. 6. Moderate size joint effusion.
== END 2023-08-08 08:35 | disposition home or self-care (01) ==
LOC: RAD 08:35
PROVIDERS: PCP Internal Medicine; Visit Provider Internal Medicine
DX: S42.291A Other displaced fracture of upper end of right humerus, initial encounter for closed fracture (principal); X58.XXXA Exposure to other specified factors, initial encounter; M75.41 Impingement syndrome of right shoulder; M25.411 Effusion, right shoulder
CPT/HCPCS: 73221

== ENCOUNTER → 2023-08-11 14:28 | Outpatient (BNVA) | payer MEDICARE, SELFPAY | PROVIDERS: PCP Internal Medicine; Referring Provider Internal Medicine; Visit Provider Student in an Organized Health Care Education/Training Program | DX: S42.291A Other displaced fracture of upper end of right humerus, initial encounter for closed fracture; S46.001A Unspecified injury of muscle(s) and tendon(s) of the rotator cuff of right shoulder, initial encounter; X58.XXXA Exposure to other specified factors, initial encounter | CPT/HCPCS: 73030; 99204 ==

== ENCOUNTER → 2023-08-22 08:27 | Outpatient (BNVA) | payer MEDICARE, SELFPAY | PROVIDERS: PCP Internal Medicine; Visit Provider Anesthesiology Pain Medicine | DX: M79.18 Myalgia, other site (principal); M54.9 Dorsalgia, unspecified; R20.0 Anesthesia of skin; R20.2 Paresthesia of skin; M47.812 Spondylosis without myelopathy or radiculopathy, cervical region | CPT/HCPCS: 20553; 99214 ==

== ENCOUNTER 2023-08-26 07:49 | Outpatient (CLI) | payer MEDICARE, SELFPAY ==
--- NOTE | 2023-08-26 08:00 | CT_ITS ---
WS: [id number] CT RIGHT SHOULDER, NONCONTRAST HISTORY: humeral head fracture Technique: All CT scans at [facility] use at least one of these dose optimization techniques: automated exposure control; mA and/or kV adjustment per patient size (includes targeted exams where dose is matched to clinical indication); or iterative reconstruction. DLP: 227.49 mGy.cm COMPARISON: Shoulder radiograph 08/11/2023, prior MRI 08/08/2023 Nonhealed fracture with multiple small fragments is reidentified involving the superior, posterior la teral humeral head. There is a large concave defect and within the defect are several bony fragments which are not healed at this time. Normal position of the humeral head and the glenoid. The clavicle is visualized is intact. The acromion is normal. There is a 3 mm osseous fragment along the superior humeral head which is probably along the articula r surface of the supraspinatus. There are several bony fragments along the course of the supraspinatu s tendon which are probably displaced and retracted. There is very slight atrophy and volume loss of the supraspinatus muscle. No joint effusion. Subsolid spiculated mass measuring 10 x 12 mm in the upper lobe with pleural extension. There is saad tional pleural tagging at the RIGHT apex. No prior studies to indicate chronicity. The visualized rib s are normal. IMPRESSION: 1. Nonhealed comminuted fracture involving the superior posterior lateral RIGHT humeral head. There are multiple osseous fragments. Some of these fragments are slightly retracted medially into the join t space along the supraspinatus tendon. 2. Spiculated subsolid mass with pleural tagging RIGHT upper lobe measures 10 x 12 mm. Recommend fol low-up chest CT with IV contrast. Neoplasm needs to be excluded.
== END 2023-08-26 07:50 | disposition home or self-care (01) ==
LOC: RAD 07:52
PROVIDERS: PCP Internal Medicine; Visit Provider Student in an Organized Health Care Education/Training Program
DX: S42.291A Other displaced fracture of upper end of right humerus, initial encounter for closed fracture; X58.XXXA Exposure to other specified factors, initial encounter; R91.8 Other nonspecific abnormal finding of lung field
CPT/HCPCS: 73200

== ENCOUNTER → 2023-09-06 07:23 | Outpatient (BNVA) | payer MEDICARE, SELFPAY | PROVIDERS: PCP Internal Medicine; Visit Provider Student in an Organized Health Care Education/Training Program | DX: S46.001A Unspecified injury of muscle(s) and tendon(s) of the rotator cuff of right shoulder, initial encounter (principal); M75.101 Unspecified rotator cuff tear or rupture of right shoulder, not specified as traumatic; M75.41 Impingement syndrome of right shoulder; M24.011 Loose body in right shoulder; M19.011 Primary osteoarthritis, right shoulder; X58.XXXA Exposure to other specified factors, initial encounter | CPT/HCPCS: 99214 ==

== ENCOUNTER 2023-09-21 08:20 | Outpatient (CLI) | payer MEDICARE, SELFPAY ==
--- NOTE | 2023-09-21 08:23 | CT_ITS ---
WS: [id number] CT chest w con* [id number] HISTORY: LUNG MASS TECHNIQUE: Axial imaging performed through the thorax. Coronal and sagittal reformats are submitted. All CT scans at [facility] use at least one of these dose optimization techniques: automated exposure control; mA and/or kV adjustment per patient size (includes targeted exams where dose is mat ched to clinical indication); or iterative reconstruction. CONTRAST: Omnipaque 350; 100 mL IV. DLP: 269.14 mGy.cm COMPARISON: RIGHT shoulder CT 08/26/2023 Lungs and central airway: Reidentified is a slightly spiculated nodule at the RIGHT apex measuring 1. 8 x 0.8 x 1.2 cm. This has not increased in size or change since 08/26/2023. No additional pulmonary ma ss is identified. RIGHT perifissural nodule measures 0.5 cm identified. These are typically benign. Pleura: Normal. No pleural effusion. Heart and pericardium: Normal size heart with no pericardial effusion. Mediastinum and venkata: No mediastinum or hilar adenopathy. Vessels: Mild atherosclerosis aorta. Normal size pulmonary artery. Chest wall and lower neck: No soft tissue masses. Upper abdomen: Small hiatal hernia. No adrenal mass. Pancreatic duct is mildly prominent. The entire pancreatic head is not visualized. Pancreatic duct measures less than 2 mm. Osseous structures: Mild increase in thoracic kyphosis. Tiny sclerotic focus in T5. Remote fracture p osterior RIGHT fourth rib with healing. IMPRESSION: 1. Irregular, spiculated nodule in the RIGHT upper lobe measuring 1.8 x 0.8 x 1.2 cm. This will need long-term surveillance to ensure there is no malignancy. This may be an early malignancy versus scar formation. Consider follow-up PET/CT imaging at this time versus 3-month chest CT follow-up. 2. No mediastinal or hilar adenopathy. 3. No pneumonia.
[2023-09-21 09:06] LABS: Blood Urea Nitrogen 16 mg/dL (8-23); Glomerular Filtration Rate 49.5 mL/min (90-130)
[2023-09-21] MEDS: iohexol 350 mg/mL 500 mL Btl (per mL) IV (09:12)
== END 2023-09-21 08:21 | disposition home or self-care (01) ==
LOC: RAD 08:20
PROVIDERS: Radiology Diagnostic Radiology; PCP Internal Medicine; Visit Provider Internal Medicine
DX: R91.8 Other nonspecific abnormal finding of lung field (principal); R91.1 Solitary pulmonary nodule
CPT/HCPCS: 71260; 82565; 84520; Q9967

== ENCOUNTER 2023-10-03 13:49 | Outpatient (CLI) | payer MEDICARE, SELFPAY ==
--- NOTE | 2023-10-03 13:51 | MM_ITS ---
WS: [id number] BILATERAL 3D TOMOSYNTHESIS DIGITAL SCREENING MAMMOGRAM WITH CAD CLINICAL INFORMATION: SCREENING HISTORY: Screening mammogram. No current complaints. COMPARISON: 09/24/2022 TECHNIQUE: Bilateral CC and MLO. FINDINGS: The breast are composed of extremely dense tissue, which can limit the detection of small underlying mass lesions. No suspicious focal mass, asymmetry, calcifications, or architectural distortion. No ev idence of malignancy. Incidental punctate calcifications. Stable clustered calcifications. Vascular c alcifications. IMPRESSION: MM/[place] [id number] BI-RADS: 2-Benign FOLLOW UP: 1 Year Follow-up Recommend return to annual screening mammography.
--- NOTE | 2023-10-03 13:54 | XR_ITS ---
WS: [id number] SCREENING DEXA SCAN [employer] CLINICAL INFORMATION: OSTEOPOROSIS COMPARISON: 05/19/2020 FINDINGS: The L1-L4 bone mineral density measures 1.055 g/cm2. This corresponds to a T score score of -1.0 and Z score of 0.6. Left femoral neck bone mineral density measures 0.830 g/cm2. This corresponds to a T score of -1.4 an d Z score of -0.1. Right femoral neck bone mineral density measures 0.840 g/cm2. This corresponds to a T score -1.3of an d Z score of 0.0. Mean femoral neck bone mineral density measures 0.835 g/cm2. This corresponds to a T score of -1.4 an d Z score of 0.0. IMPRESSION: Osteopenia lumbar spine. Osteopenia femoral necks. Patient's FRAX calculated 10 year probability for major osteoporotic fracture is 18.8% and osteoporot ic hip fracture is 3.3%. Bone mineral density in the lumbar spine increased 0.8% Bone mineral density in the femoral necks decreased -0.8%
== END 2023-10-03 13:50 | disposition home or self-care (01) ==
LOC: RAD 13:50
PROVIDERS: PCP Internal Medicine; Visit Provider Internal Medicine
DX: Z12.31 Encounter for screening mammogram for malignant neoplasm of breast (principal); M81.0 Age-related osteoporosis without current pathological fracture; M85.88 Other specified disorders of bone density and structure, other site
CPT/HCPCS: 77063; 77067; 77080

== ENCOUNTER 2023-10-11 12:59 | Outpatient (CLI) | payer MEDICARE, SELFPAY ==
--- NOTE | 2023-10-11 13:05 | PETR_ITS ---
PROCEDURE INFORMATION: Exam: PET/CT Skull Base to Mid-thigh Exam date and time: 10/11/2023 1:42 PM Age: 68 years old Clinical indication: Abnormal findings; Irregular, spiculated nodule in the right upper lobe measuring 1.8 x 0.8 x 1.2 cm. This will need long-term surveillance to ensure there is no malignancy. This May be an early malignancy versus scar formation. Consider follow-up pet/ct imaging at this time versus 3-month chest CT follow-up. ; Additional info: Abnormal imaging of lung LABS AND CLINICAL REPORTS: Glucose: 103 mg/dl Treatment strategy for malignancy (PET staging): Initial Staging (PI) TECHNIQUE: Imaging protocol: Following at least four-hour fasting and following the injection of radiopharmaceutical, low dose CT images were obtained. Then, PET images were obtained. Attenuation corrected images were constructed using the CT scan. Fused images of PET and CT were reviewed. The standardized uptake values (SUV) reported below are maximum values within a region of interest, expressed in gm/ml. Exam includes orbital meatal line to mid-thigh. Radiopharmaceutical: 12.6 mCi F-18 FDG (Fluorodeoxyglucose), IV. Time of imaging post radiopharmaceutical administration: 1 hour Injection site: Right antecubital COMPARISON: CT chest 09/21/2023, right shoulder CT 08/26/2023, right shoulder MRI 08/08/2023, CT abdomen pelvis w con* [id number] 09/09/2017 5:48 PM FINDINGS: Brain: Visualized brain has normal physiologic uptake. Pharynx: No abnormal uptake. Larynx: There is physiologic appearing uptake in the region of the larynx. Lungs, pleura and trachea: No abnormal uptake. Non radiotracer avid mild biapical pleural scarring is noted. A previously noted nodular density extending inferiorly from the right apical pleural surface with a spiculated appearance measuring 2.0 x 1.1 cm in the axial plane on series 3, image 47 is noted without elevated uptake. This region is unchanged in size allowing for differences in measurement technique between the current and prior examination. A solid appearing ovoid 0.7 x 0.3 cm nodule in the right middle lobe adjacent to the major fissure on series 3, image 82 is unchanged. Heart: Normal physiologic uptake. Mediastinal space: No abnormal uptake. Liver: No abnormal uptake. Gallbladder and bile ducts: No abnormal uptake. Pancreas: No abnormal uptake. Spleen: No abnormal uptake. Adrenal glands: No abnormal uptake. Kidneys and ureters: Normal physiologic uptake. Stomach and bowel: Uptake in the stomach and bowel appears physiologic. Vasculature: No abnormal uptake. There are diffuse atherosclerotic changes including within the coronary arteries. Lymph nodes: No abnormal uptake. No lymphadenopathy in the head, neck, chest, abdomen, pelvis, and extremities. Bones/joints: There is evidence of similar fracturing of the greater tuberosity of the right humerus with elevated uptake, SUV max 5.5. An os acromiale on the right is noted, a developmental variant. Moderate thoracic spine kyphosis. [id number] degenerative vertebral body spondylosis in the spine is present. Benign-appearing lobulated anteriorly projecting deformity of the posteromedial aspect of the right 5th rib extending to the superior aspect of the posteromedial 6th rib is noted, likely developmental. Soft tissues: No abnormal uptake in the visualized head, neck, chest, abdomen, pelvis, and extremities. METRICS: Mediastinal blood pool: SUV max 2.3 [facility] [id number] IMPRESSION: 1. A spiculated nodular density at the right lung apex contiguous with right apical pleural scarring is not radiotracer avid likely representing an additional region of scarring. 2. Similar solid nodule in the right middle lobe adjacent to the major fissure without elevated uptake favoring a benign etiology. Assessment of small nodules can be limited by PET-CT. 3. Abnormal uptake in the right humeral greater tuberosity is noted and is likely inflammatory, associated with a similar fracture in this region. 4. Additional nonurgent findings as detailed above.
== END 2023-10-11 13:00 | disposition home or self-care (01) ==
LOC: RAD 12:59
PROVIDERS: PCP Internal Medicine; Visit Provider Internal Medicine
DX: R91.8 Other nonspecific abnormal finding of lung field (principal); R91.1 Solitary pulmonary nodule
CPT/HCPCS: 78815; A9552

== ENCOUNTER 2023-10-13 06:25 | Day surgery (SDC) | payer MEDICARE, SELFPAY ==
[2023-10-13] VITALS (9 sets, daily range): BP systolic 91–133; BP diastolic 51–75; PULSE 68–82; RESP 16–17; TEMP 36.1–36.7; O2SAT 93–100; BMI 25.7
[2023-10-13] MEDS: sodium chloride 0.9% 1,000 ML 30 ML IV (06:52)
[2023-10-13] MEDS: acetaminophen 1,000 MG/100 ML PIGGYBACK 400 MG IV (06:52)
[2023-10-13] MEDS: scopolamine 1.5 Patch 1 PATCH TRANSDERMA (06:53)
--- NOTE | 2023-10-13 07:38 | ANES.PREANE2 ---
Pre-Anesthetic Assessment Height/Weight: Height 1.57 m Weight 63.957 kg Temp Pulse Resp BP Pulse Ox O2 Del Method 97.0 F L 81 16 133/75 98 Room Air 10/13/23 06:48 10/13/23 06:48 10/13/23 06:48 10/13/23 06:48 10/13/23 06:48 10/13/23 06:48 Operation Date: 10/13/23 08:00 Proposed Procedures p Shoulder Arthroscopy(Right) - Mekhi Mckeonatt, DO p Subacromial Decompression(Right) - Mekhi [place]azoo, DO s AC Joint Resection(Right) - Mekhi Mckeonatt, DO s Removal Loose Bodies Loose Body Removal(Right) - Mekhi Yazoo, DO s Rotator Cuff Repair - Arthroscopy/LABRAL DEBRIDEMENT VERSUS REPAIR and ROTATOR CUFF DEBRIDEMENT VERSUS REPAIR(Right) - Mekhi Mckeonatt, DO Familial anesthetic complications: None Was Beta Donnie taken within 24 hours: N/A Was Clonidine taken within 24 hours: N/A Last intake: Intake Last Liquid Date 10/12/23 Last Liquid Time 22:00 Last Solid Date 10/12/23 Last Solid Time 18:00 Social No alcohol and No tobacco Exam alert, oriented x 3, clear to auscultation bilaterally and regular rate & rhythm Airway Mallampati: Class II Dentition: false CV/HEM Coronary Artery Disease (by calcium score, negative stress and perfusion tests, normal echo) and Hypertension Metabolic Hyperlipidemia and Thyroid Disease Anesthetic Plan ASA status: 3 Anesthesia: General and Regional (specify below) Risk of > 500 ml blood loss (7ml/kg in children): No Medications/Allergies Home Medications Medication Instructions Recorded Confirmed Last Taken Type lisinopril 2.5 mg tablet 2.5 mg PO DAILY 05/08/20 10/12/23 10/12/23 History duloxetine 60 mg capsule,delayed 60 mg PO DAILY 10/05/22 10/13/23 Unknown History release levothyroxine 25 mcg tablet 50 mcg PO DAILY 10/05/22 10/12/23 10/13/23 History (Euthyrox) baclofen 20 mg tablet 20 mg PO DAILY PRN Pain 11/10/22 10/12/23 10/12/23 History hydrocodone 10 mg-acetaminophen 1 tab PO Q6H PRN pain 5 days #20 09/30/23 10/12/23 10/12/23 Rx 325 mg tablet tabs rosuvastatin 5 mg tablet (Crestor) 5 mg PO 1XD 10/12/23 10/12/23 10/12/23 History Allergies Allergy/AdvReac Type Severity Reaction Status Date / Time NSAIDS (Non-Steroidal Allergy Intermediate HISTORY OF Verified 10/13/23 06:42 Anti-Inflamma BLEEDING ULCER Current Medications Generic Name Dose Route Start Last Admin Trade Name Freq PRN Reason Stop Dose Admin Sodium Chloride 1,000 mls @ 30 mls/hr 10/13/23 06:45 10/13/23 06:52 Sodium Chloride 0.9% IV 10/14/23 06:44 30 mls/hr .Q24H PARK Administration PFSH Anesthesia Social History Smoking and tobacco/nicotine status: former use of tobacco/nicotine Quit status (tobacco/nicotine): has quit using Second hand smoke exposure: No Alcohol intake: never Substance/Drug Use: never Lives independently: Yes Household members: spouse Marital status: Highest education level completed: High School Graduate Special andreina needs: No Data Anesthesia Cardiac Studies: Echocardiogram 11/30/22 Sestamibi Stress Test (Cardiology) 11/30/22
--- NOTE | 2023-10-13 07:39 | ANES.PROC ---
Anesthesia Procedures Procedure/Date: 10/13/23 Nerve Block ^: Nerve Block 1: Main Anesthesia: general anesthesia Time Out Performed: Yes Consent: requested by attending/covering physician, from patient, from other, risks and benefits reviewed and patient agrees to proceed Nerve block location: interscalene (R) Anesthesia monitors applied: pulse oximetry, EKG and BP cuff Nerve block position: semi sitting Anesthetic Used: ropivicaine 0.5% (30 ml) and with decadron (4 mg) Ultrasound used to: recognize landmarks, visualize and ID brachial plexus, in supraclavicular region and visualize and ID interscalene groove Nerve Stimulator Used?: No Interscalene/Femoral BLK: 2 stimuplex 22 g needle used for position and inplane approach, visualize local anesthetic spread and no vascular puncture identified Injection: neg aspiration of heme Patient Tolerated Procedure: well and no complications Complications: none
[2023-10-13] MEDS: midazolam 1 mg/mL INJ 2 mL 2 MG IVP (07:40)
--- NOTE | 2023-10-13 07:50 | P.HP_ITS ---
Same Day Surgery H&P Indication for Procedure/HPI DATE OF PROCEDURE: October 13, 2023 CHIEF COMPLAINT/INDICATIONFOR SURGICAL PROCEDURE: Right shoulder injury with pain, loose bodies, rotator cuff tear, AC joint arthritis, subacromial impingement PREOP DIAGNOSIS: Right shoulder injury with pain, loose bodies, rotator cuff tear, AC joint PLANNED PROCEDURE: Operation Date: 10/13/23 08:00 Proposed Procedures p Shoulder Arthroscopy(Right) - Mekhi Ellis, DO p Subacromial Decompression(Right) - Mekhi Mckeonatt, DO s AC Joint Resection(Right) - Mekhi [place], DO s Removal Loose Bodies Loose Body Removal(Right) - Mekhi [place], DO s Rotator Cuff Repair - Arthroscopy/LABRAL DEBRIDEMENT VERSUS REPAIR and ROTATOR CUFF DEBRIDEMENT VERSUS REPAIR(Right) - Mekhi Ellis DO Medications/Allergies* Home Medications Medication Instructions Recorded Confirmed Type lisinopril 2.5 mg tablet 2.5 mg PO DAILY 05/08/20 10/12/23 History duloxetine 60 mg capsule,delayed 60 mg PO DAILY 10/05/22 10/13/23 History release levothyroxine 25 mcg tablet 50 mcg PO DAILY 10/05/22 10/12/23 History (Euthyrox) baclofen 20 mg tablet 20 mg PO DAILY PRN Pain 11/10/22 10/12/23 History rosuvastatin 5 mg tablet (Crestor) 5 mg PO 1XD 10/12/23 10/12/23 History Allergies/Adverse Reactions Allergy/AdvReac Type Severity Reaction Status Date / Time NSAIDS (Non-Steroidal Allergy Intermediate HISTORY OF Verified 10/13/23 06:42 Anti-Inflamma BLEEDING ULCER Pertinent History/Comorbid Conditions* Social History Smoking and tobacco/nicotine status: former use of tobacco/nicotine Quit status (tobacco/nicotine): has quit using Second hand smoke exposure: No Alcohol intake: never Substance/Drug Use: never Lives independently: Yes Household members: spouse Marital status: Highest education level completed: High School Graduate Special andreina needs: No Pertinent Exam Findings alert, oriented x 3, operative site marked and procedure specific exam findings Please refer to detailed orthopedic examination from office visit dating 09/06/2023: Listed below Examination of the right shoulder: Examination of the right shoulder decreased range of motion secondary to pain tenderness palpation over the lateral greater tuberosity mild tenderness to palpation anteriorly, minimal tenderness to palpation posteriorly and tenderness palpation over AC joint. Passive range of motion to 170 degrees active range of motion 130 degrees. Weakness on Jobes examination pain with positive Crawford's positive speeds positive Mcrae impingement positive crossover arm test over the AC joint Recommendations Surgery/Procedure today Other Plans: Plan to proceed with the OR today for right shoulder diagnostic and surgical ar throscopy with subacromial decompression, AC joint resection, loose body removal, labral debridement versus repair, rotator cuff debridement versus repair. Coding Level of Care Code Acute Code for Angelique Torres
[2023-10-13] MEDS: ceFAZolin 2,000 MG in sodium chloride 0.9% (plus) 50 ML 100 MG IV (08:26)
[2023-10-13] MEDS: EPINEPHrine 1 mg/mL INJ XX ×2 (09:33)
--- NOTE | 2023-10-13 11:19 | P.BOP_ITS ---
Date of Procedure: [10/13/2023] Surgeon: Mekhi Ellis DO [employer] Teacher(s): None Procedure(s) performed: Right shoulder diagnostic and surgical arthroscopy with bicep tenodesis Right shoulder diagnostic and surgical arthroscopy with labral debridement Right shoulder diagnostic and surgical arthroscopy with multiple loose body removal greater than 1 cm Right shoulder diagnostic and surgical arthroscopy with AC joint resection (distal clavicle excision) Right shoulder diagnostic and surgical arthroscopy with subacromial decompression (subacromial bursectomy) Right shoulder diagnostic and surgical arthroscopy with rotator cuff repair (medium size) Findings of the procedure(s): Patient was found to have a large defect within the greater tuberosity area of the supraspinatus tendon insertion as well as a medium size rotator cuff tear there is multiple loose bodies in this area. She also had a considerable SLAP tear and lesion with unstable bicep anchor with significant inflammation and unstable biceps anchor underwent a bicep tenodesis loose body removal as well as ended up performing a rotator cuff repair with tying the rotator cuff down into the defect and then anchoring this with a lateral anchor procedure went as planned without issues or complications. She will follow-up in the orthopedic office in 2 weeks Estimated blood loss: 5 mL Specimen(s) removed: Multiple loose bodies of humeral head/tuberosity bone removed Post-operative diagnosis: Right shoulder SLAP tear, multiple loose bodies, AC joint arthritis, subacromial impingement, rotator cuff tear with humeral head depression
--- NOTE | 2023-10-13 11:22 | P.OP_ITS ---
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 Right?shoulder?subacromial bursitis/impingement Right shoulder os acromiale Right shoulder loose bodies Procedure done: Right shoulder diagnostic and surgical arthroscopy with bicep tenodesis Right shoulder diagnostic and surgical arthroscopy with labral debridement Right shoulder diagnostic and surgical arthroscopy with multiple loose body removal greater than 1 cm Right shoulder diagnostic and surgical arthroscopy with AC joint resection (distal clavicle excision) Right shoulder diagnostic and surgical arthroscopy with subacromial decompression (subacromial bursectomy) Right shoulder diagnostic and surgical arthroscopy with rotator cuff repair (medium size) Surgeon: Mekhi Ellis DO Estimated blood loss: 5mL IV fluids: See anesthesia record Implants: Bicep tenodesis loop and tack implant system cannot Arthrex 4.75 swivel lock x 2 Arthrex scorpion and suture tape and FiberWire Complications: None Condition: stable Disposition: same day Brief History: Patient been seen and worked up in the outpatient setting for right? shoulder?pain.? Pt had an MRI which showed findings below.? Patient's failed conservative treatment and has weakness.? We talked about treatment?options far as nonoperative and?operative intervention..? We talked about risk benefits complication alternatives surgical nonsurgical treatment?options.? Understanding risk of surgery he agrees to proceed with surgical intervention.? All questions have been answered at this time.? Patient elects proceed with surgery and consent obtained in office. IMPRESSION: 1. Acute trabecular injury and fracture involving the posterolateral humeral he ad. There is a defect in the posterolateral humeral head with the evulsion fracture which could potentially be a Hill-Sachs impaction fracture. 2. Subacromial impingement upon the supraspinatus tendon. 3. Distal tendinopathy with fraying of the supraspinatus tendon. 4. Insertion site of the supraspinatus tendon is at the site of the acute impaction fracture. 5. Avulsed anterior labrum. No glenoid edema. 6. Moderate size joint effusion. Procedure: Patient seen evaluated in the preoperative holding area.? Consent reviewed and signed with patient.? Once again reviewed patient's MRI results as well as? planned surgical intervention.? Correct extremity marked.? Patient seen evaluated by anesthesia department received regional anesthesia.? Once ready for surgery was taken back to the?operative suite.? Patient then subsequently underwent anesthesia per the anesthesia department was transported onto the OR table.? Patient was then placed into a lateral decubitus position with a beanbag and was appropriately secured to the bed.? All bony prominences well-padded.? Patient then had the right upper extremity was then prepped and draped in standard orthopedic fashion.? Patient received appropriate preoperative antibiotics.? Final timeout performed. The right upper extremity was then held in hanging from traction utilizing sterile technique.? Next started with standard diagnostic and surgical arthroscopy with posterior portal position introduced arthroscope into the glenohumeral joint.? Visualized the glenohumeral joint I then introduced a spinal needle within the rotator cuff interval to confirm appropriate anterior portal placement.? Once this was confirmed I then made my small incision and then introduced my arthroscopic shaver into the glenohumeral joint. After flushing the joint fluid, was clearly evident patient had biceps tendon tearing as well as Superior labral tear. Patient had appreciable unstable biceps anchor most pronounced in the superior labrum. Given there appears to be healthy intra-articular tendon plan was for an intra-articular biceps tenodesis at the superior portion as it enters the intertubercular groove. Thermal wand introduced into the rotator interval. I then release of the rotator interval to have appropriate visualization and the ability to perform biceps tenodesis. At this point I established a purple passport cannula which was introduced. Next I performed an Arthrex loop and tap biceps tenodesis. Passer was then made around the tendon luggage tag stitch around and then thru the tendon and around twice I then utilized a thermal wand to release the biceps tendon at the anchor to perform with tenotomy. I then loaded with suture onto an Arthrex 4.75 swivel lock suture anchor. A punch was then placed in appropriate position at the entry point into the intertubercular groove just superior to the subscapularis tendon. Punch was then introduced to the appropriate depth. The suture loaded on the swivel lock was then advanced held under appropriate tension and shoulder lock anchor was then advanced and had excellent fixation. Excess suture was then cut biceps tenodesis was complete. I then utilized a thermal wand to seal the edges of the superior labrum. Next I evaluated the subscapularis tendon which was intact and no evidence of tear. ?Next there was significant labral tearing at biceps anchor and circumferential.? ? I then subsequently utilized a a arthroscopic shaver and thermal wand to perform a labral debridement.? This point time I then visualized the glenohumeral joint.? The glenohumeral joint was found to have grade 1-2? chondromalacia throughout.? Infrapatellar pouch was free of loose bodies from viewing the posterior portal.? Next I visualized the rotator cuff. Patient had a trauma and had what was appeared to be a Hill-Sachs deformity but did not correlate significantly with patient's pathology as this was directly lateral on visualization multiple fragments within this concavity of the humeral head was noted of having rotator cuff attached to multiple loose bodies within this area. As result I utilized arthroscopic shaver and thermal wand as well as grasper to remove multiple loose bodies which totaled greater than 1 cm this obviously left patient with a medium sized rotator cuff tear of the supraspinatus tendon. Given this thin cavity my plan was for performing a standard rotator cuff repair with a single medial and lateral row anchor however tying down in a mattress fashion my medial row to fill up this deformity with the rotator cuff tendon and the similarity to a remplissage procedure and incorporate this then with my repair of the rotator cuff laterally. As result I removed all the loose bodies and prepped this and site for later repair. I then subsequently moved into the subacromial space. ?Next I reintroduced the arthroscope posteriorly.? And went to the subacromial space.? I established my lateral working portal at the site of which my spinal needle was marking of the rotator cuff tear.? Thermal wand was then introduced laterally and then I subsequently performed extensive bursectomy of the subacromial space.? Patient had a large anterior bone spur.? At this point time I proceeded with my AC joint resection thermal wand was used and track to the anterior edge of the acromion and then tracked all the way to the AC joint.? Once identified the AC joint this was very arthritic in nature.? Thermal wand was placed anteriorly to establish appropriate plane for AC joint resection.? Once appropriate margins and anterior inferior and anterior capsule was released I then introduced arthroscopic shaver and a bur and performed AC joint resection of both the acromion to co plane at the AC joint and a distal clavicle resection was then performed totaling 1 cm in size and was confirmed.? This completed my AC joint resection and I then introduced the arthroscopic shaver laterally while continuing to view posteriorly.? I then performed an acromioplasty to complete my subacromial decompression prior to fixing the rotator cuff tear.? It was of note the patient did have os acromiale superiorly as result I was less aggressive with my subacromial decompression as far as the acromioplasty goes and maintain patient's CA ligament. At this point in time I was prepared and ready for the rotator cuff repair. I then subsequently placed the scope back into the glenohumeral joint to have direct visualization of placing my medial row anchors my plan was to do this with plan to tie the rotator cuff down first. As result I use a spinal needle and created an accessory portal with that means angle directly into the center of this can cavity of what appeared to be similar to Hill-Sachs deformity. As result I then had a total of 4 sutures loaded into this medial anchor. I subsequently punched and placed a 4.75 swivel lock which was loaded with 1 suture tape as well as 1 FiberWire. This allowed removed for total strands. This was then pulled and found to have excellent fixation within the humeral head and I confirmed this did not invade the joint when I secured the anchor. At this point in time I then utilized a BirdBeak tissue grasper and purchase through the supraspinatus rotator cuff tendon from subacromial space to to the glenohumeral joint to grab the anterior suture passed through the supraspinatus tendon and then once again did the BirdBeak through the posterior portion of the supraspinatus tendon this had a standard horizontal mattress fashion and utilizing arthroscopic knot pusher did a standard arthroscopic suture time and appropriately tensioned this down visualize this from the glenohumeral joint and salt the supraspinatus tendon fill up the Hill-Sachs deformity and a remplissage like fashion. At this point in time the I pulled the sutures out of the subacromial space here with the anterior portal and docked these anteriorly. I then turned my lateral portal I pulled out the other suture tapes through the rotator cuff tear from the glenohumeral joint space. At this point time I moved my camera back up into the subacromial space and then in standard rotator cuff repair fashion loaded those each individually the suture tapes with the arthroscopic scorpion and passed this through the medium size rotator cuff tear of the supraspinatus tendon at the site where the small loose body fragments have been removed 2 passes were then made at appropriate purchase of the tendon and then I subsequently grabbed all of her sutures including the arthroscopic tied and the fiber tape and then loaded these laterally onto a 4.75 swivel lock. I then subsequently marked my location prepped and decorticated the rotator cuff footprint laterally and then subsequently punched and advanced a 4.75 swivel lock loaded into the anchor with the arthroscopic suture and then maintaining satisfactory tension-free rotator cuff repair this was then advanced with excellent fixation all excess suture was then removed. Repair was found to be satisfactory?shoulder?was taken through range of motion and the repair moved as a unit with no evidence of loss of fixation. ?I then switched the arthroscope to the lateral portal to confirm this tension- free repair.? I took the?shoulder?through range of motion and the rotator cuff repair was stable and moved as a unit. ?Next I then introduced the arthroscopic shaver posteriorly to verify my subacromial decompression was appropriate. this completed the surgery.? All fluid was suctioned from the?shoulder.? All instruments were removed.? The lateral incision was then closed with nylon stitches.? As well as the portal sites closed with portal nylon stitches.? Xeroform 4 x 4's ABD and tape was then applied to the right?shoulder?and was placed into a?shoulder?abduction pillow sling for rotator cuff repair.? Patient was then awakened from anesthesia and then taken back to PACU in stable condition.? Patient tolerated procedure without any issues. Disposition: Patient taken back in stable condition recovering well.? Dressings on in place clean dry and intact.? Will be nonweightbearing to the right upper extremity.? Follow rotator cuff repair protocol.? Patient to follow-up with me in the office in 2 weeks.? Patient will receive appropriate discharge instruction as well as pain medication postoperatively.? All questions answered.? We will contact the office for any questions or concerns..
--- NOTE | 2023-10-13 13:15 | ANE.PACU2 ---
Inpatient post-anesthesia follow up: Airway intact: Yes Vital signs: Temperature 98 F Pulse Rate 79 Respiratory Rate 16 Blood Pressure 113/67 Pulse Oximetry 94 Oxygen Delivery Me thod Room Air Oxygen Flow Rate 3 Fraction of Inspir ed Oxygen Hydration adequate: Yes Nausea and vomiting: No Pain level: 1 Mental status: Baseline
--- NOTE | 2023-10-13 13:22 | PC.NURSE ---
patient got out before signing discharge page. explained all discharge info with patient and . Both voiced understanding and all questions answered.
== END 2023-10-13 13:28 | disposition home or self-care (01) ==
PROVIDERS: PCP Internal Medicine; Visit Provider Student in an Organized Health Care Education/Training Program
PROC: (CPT 29805; principal; 2023-10-13 07:50)
PROC: (CPT 29826; 2023-10-13 07:50)
PROC: 0RSG0ZZ Reposition Right Acromioclavicular Joint, Open Approach (ICD-10-PCS; CPT 23120; 2023-10-13 07:50)
PROC: (CPT 23120; 2023-10-13 07:50)
PROC: (CPT 29827; 2023-10-13 07:50)
DX: M75.101 Unspecified rotator cuff tear or rupture of right shoulder, not specified as traumatic (principal); S43.401A Unspecified sprain of right shoulder joint, initial encounter; S46.111A Strain of muscle, fascia and tendon of long head of biceps, right arm, initial encounter; M19.011 Primary osteoarthritis, right shoulder; M25.811 Other specified joint disorders, right shoulder; M24.011 Loose body in right shoulder; X58.XXXA Exposure to other specified factors, initial encounter; I25.10 Atherosclerotic heart disease of native coronary artery without angina pectoris; I10 Essential (primary) hypertension; E78.5 Hyperlipidemia, unspecified; Z87.891 Personal history of nicotine dependence
CPT/HCPCS: 23120; 29826; 29827; 29828; C1713; J0131; J0171; J0690; J1100; J2250; J2371; J2405; J2704; J2710; J2795; J3010; J3490; J7030

== ENCOUNTER → 2023-11-01 13:46 | Outpatient (BNVA) | payer MEDICARE, SELFPAY | PROVIDERS: PCP Internal Medicine; Visit Provider Physician Assistant | DX: Z98.890 Other specified postprocedural states (principal) | CPT/HCPCS: 99024 ==

== ENCOUNTER → 2023-12-08 09:00 | Outpatient (BNVA) | payer MEDICARE, SELFPAY | PROVIDERS: PCP Internal Medicine; Visit Provider Physician Assistant | DX: Z98.890 Other specified postprocedural states (principal) | CPT/HCPCS: 99024 ==

== ENCOUNTER 2023-12-13 10:23 | Outpatient (RCR) | payer MEDICARE, SELFPAY | END 2023-12-18 23:59 | disposition home or self-care (01) | LOC: SPT 10:23 | PROVIDERS: PCP Internal Medicine; Visit Provider Physician Assistant | DX: Z98.890 Other specified postprocedural states (principal) | CPT/HCPCS: 97161 ==

== ENCOUNTER 2023-12-27 08:49 | Outpatient (RCR) | payer MEDICARE, SELFPAY | END 2024-01-18 23:59 | disposition home or self-care (01) | LOC: SPT 08:49 | PROVIDERS: PCP Internal Medicine; Visit Provider Physician Assistant | DX: Z98.890 Other specified postprocedural states (principal) | CPT/HCPCS: 97110; 97140 ==

== ENCOUNTER 2024-01-19 06:00 | Outpatient (RCR) | payer MEDICARE, SELFPAY | END 2024-01-31 23:59 | disposition home or self-care (01) | LOC: SPT 06:00 | PROVIDERS: PCP Internal Medicine; Visit Provider Physician Assistant | DX: Z98.890 Other specified postprocedural states (principal) | CPT/HCPCS: 97110 ==

== ENCOUNTER 2024-05-12 13:06 | Inpatient (IN) | payer MEDICARE, SELFPAY ==
[2024-05-12] VITALS (7 sets, daily range): BP systolic 133–167; BP diastolic 69–92; PULSE 74–92; RESP 17–20; TEMP 36.5–36.6; O2SAT 93–99; BMI 22.8
--- NOTE | 2024-05-12 14:22 | CTR_ITS ---
PROCEDURE INFORMATION: Exam: CT Head Without Contrast Exam date and time: 05/12/2024 2:46 PM Age: 69 years old Clinical indication: Altered mental status/memory loss TECHNIQUE: Imaging protocol: Computed tomography of the head without contrast. Radiation optimization: All CT scans at this facility use at least one of these dose optimization techniques: automated exposure control; mA and/or kV adjustment per patient size (includes targeted exams where dose is matched to clinical indication); or iterative reconstruction. COMPARISON: CT head wo con* [id number] 02/09/2023 3:17 PM RADIATION DOSE METRICS: Total DLP (mGy-cm): 993.88 FINDINGS: Brain: Sequela of mild chronic microvascular ischemic changes. Carrizales-white differentiation is otherwise maintained. No evidence of intra-axial or extra-axial hemorrhage. No mass effect or midline shift. Basilar cisterns are patent. Cerebral ventricles: No hydrocephalus. Paranasal sinuses: Right sphenoid sinus mucosal thickening The visualized paranasal sinuses are otherwise well aerated. Mastoid air cells: The visualized mastoids and middle ears are clear. Bones: Calvarium is intact. No evidence of acute fracture. Soft tissues: No gross soft tissue abnormality. CT/CT head wo con* [id number] IMPRESSION: 1. No acute intracranial abnormality.
[2024-05-12 14:49] LABS: Basophils # 0.1 10^3/uL (0.0-0.1); Basophils % 0.4 %; Eosinophils # 0.1 10^3/uL (0.0-0.8); Eosinophils % 0.5 %; Hematocrit 37.5 % (36-47); Lymphocytes # 1.9 10^3/uL (0.8-4.8); Lymphocytes % 13.9 %; Mean Corpuscular HGB Conc 31.5 g/dL (30-55); Mean Corpuscular Hemoglobin 28.5 pg (27-33); Mean Corpuscular Volume 90.6 fl (85-98); Mean Platelet Volume 11.2 fL (7.4-10.4); Monocytes # 1.1 10^3/uL (0.2-0.9); Monocytes % 8.2 %; Neutrophils # 10.53 10^3/uL (1.8-7.7); Neutrophils % 76.7 %; Nucleated Red Blood Cells % 0 %; Platelet Count 254 10^3/cmm (157-399); Red Blood Count 4.14 10^6/uL (3.85-5.65); Red Cell Distribution Width 13.2 % (12.1-15.1); White Blood Count 13.74 10^3/uL (3.29-11.43)
--- NOTE | 2024-05-12 14:52 | ECG_ITS ---
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
--- NOTE | 2024-05-12 14:55 | W.ED.AMS ---
HPI - Altered Mental Status General: Chief Complaint: Altered Mental Status Stated Complaint: AMS Time Seen by Provider: 05/12/24 14:07 History of Present Illness: 69-year-old female found altered this morning around 1 AM accompanied by her daughter to the emergency room. No particular focal neurologic deficits. Around 1 AM this morning had difficulty walking due to tremor. Patient is unable to answer questions related to time place, she does identify her daughter in the room. She denies chest pain or abdominal pain. Related Data Home Medications Medication Instructions Recorded Confirmed lisinopril 2.5 mg tablet 2.5 mg PO DAILY 05/08/20 05/12/24 duloxetine 60 mg capsule,delayed 60 mg PO DAILY 10/05/22 05/12/24 release levothyroxine 25 mcg tablet 50 mcg PO DAILY 10/05/22 05/12/24 (Euthyrox) baclofen 20 mg tablet 20 mg PO DAILY PRN Pain 11/10/22 05/12/24 rosuvastatin 5 mg tablet (Crestor) 5 mg PO 1XD 10/12/23 05/12/24 calcium 600 mg (as 600 tab PO DAILY 05/12/24 05/12/24 carbonate)-vitamin D3 10 mcg (400 unit) tablet Allergies Allergy/AdvReac Type Severity Reaction Status Date / Time NSAIDS (Non-Steroidal Allergy Intermediate HISTORY OF Verified 12/08/23 09:49 Anti-Inflamma BLEEDING ULCER Review of Systems Const: Denies: fever(s) or chills Card: Denies: chest pain Resp: Denies: dyspnea GI: Denies: abdominal pain : Denies: dysuria, urinary frequency or urinary urgency Musc: Denies: neck pain or back pain Skin/Breast: Denies: rash PFSH ED PFSH: Medical History (Updated 05/13/24 @ 06:26 by Nagi Brooke DO) History of hypertension Coronary artery disease Surgical History (Updated 05/12/24 @ 17:31 by Chris Milton MD) H/O shoulder surgery Social History Smoking and tobacco/nicotine status: former use of tobacco/nicotine Quit status (tobacco/nicotine): has quit using Second hand smoke exposure: No Alcohol intake: never Substance/Drug Use: never Lives independently: Yes Household members: spouse Marital status: Highest education level completed: High School Graduate Special andreina needs: No Physical Exam Const: GENERAL APPEARANCE: cooperative ORIENTATION/CONSCIOUSNESS: Yes awake and Yes confused HENMT: COMMON NORMALS: normocephalic, atraumatic and hearing grossly normal bilaterally HEAD & SCALP: normocephalic and atraumatic Resp: COMMON NORMALS: normal respiratory effort, No retractions, No use of accessory muscles and clear to auscultation bilaterally AUSCULTATION: clear to auscultation bilaterally Cardio: COMMON NORMALS: regular rate, regular rhythm and No murmurs present (Cardio) RATE: regular rate RHYTHM: regular rhythm GI: COMMON NORMALS: Soft to palpation and No hepatosplenomegaly present AUSCULTATION: Yes normoactive bowel sounds PALPATION: Yes Soft to palpation, No Tenderness to palpation present (GI), No Guarding due to palpation present (GI) and Yes No hepatosplenomegaly present Extremity: COMMON NORMALS: normal to inspection, capillary refill normal, no clubbing, cyanosis or edema, no calf tenderness and no pedal edema Skin: COMMON NORMALS: no rashes or lesions noted GENERAL SKIN EXAM: no rashes or lesions noted Course Vital Signs: Vital signs: Vital Signs Temperature 98.3 F 05/13/24 04:00 Pulse Rate 78 05/13/24 04:00 Respiratory Rate 15 05/13/24 04:00 Blood Pressure 106/71 05/13/24 04:00 Pulse Oximetry 96 05/13/24 04:00 Oxygen Delivery Me thod Room Air 05/13/24 04:00 MDM - Altered Mental Status Medical Decision Making Patient has had increasing difficulty with confusion suspect from the description from family has early Alzheimer's dementia changes. With bladder infection currently is significantly changed. She does have leukocytosis. She also has a mild acute kidney injury. Will admit IV fluids antibiotics. Discussed with family. Medical Records I reviewed the patient's medical records. Lab Data I reviewed the patient's lab results. 05/12/24 14:36 05/12/24 14:[address] 05/12/24 14:22 IMPRESSION: 1. No acute intracranial abnormality. Chest X-Ray 05/12/24 15:03 IMPRESSION: 1. No acute cardiopulmonary abnormality. Abdomen/Pelvis CT 05/12/24 17:27 IMPRESSION: 1. No evidence of acute abnormality in the abdomen or pelvis within limitations of a noncontrast exam. 2. Possible cystitis. 3. Wall thickening of the sigmoid colon, possibly secondary to prior bouts of diverticulitis. Consider correlation with follow-up colonoscopy to exclude an underlying mucosal lesion. Laboratory Results WBC 13.74 10^3/uL (3.29-11.43) H 05/12/24 14:36 RBC 4.14 10^6/uL (3.85-5.65) 05/12/24 14:36 Hgb 11.80 g/dL (11.27-16.99) 05/12/24 14:36 Hct 37.5 % (36-47) 05/12/24 14:36 MCV 90.6 fl (85-98) 05/12/24 14:36 MCH 28.5 pg (27-33) 05/12/24 14:36 MCHC 31.5 g/dL (30-55) 05/12/24 14:36 RDW 13.2 % (12.1-15.1) 05/12/24 14:36 Plt Count 254 10^3/cmm (157-399) 05/12/24 14:36 MPV 11.2 fL (7.4-10.4) H 05/12/24 14:36 Neut % (Auto) 76.7 % 05/12/24 14:36 Lymph % (Auto) 13.9 % 05/12/24 14:36 [place] % (Auto) 8.2 % 05/12/24 14:36 Eos % (Auto) 0.5 % 05/12/24 14:36 Baso % (Auto) 0.4 % 05/12/24 14:36 Neut # (Auto) 10.53 10^3/uL (1.8-7.7) H 05/12/24 14:36 Lymph # (Auto) 1.9 10^3/uL (0.8-4.8) 05/12/24 14:36 [place] # (Auto) 1.1 10^3/uL (0.2-0.9) H 05/12/24 14:36 Eos # (Auto) 0.1 10^3/uL (0.0-0.8) 05/12/24 14:36 Baso # (Auto) 0.1 10^3/uL (0.0-0.1) 05/12/24 14:36 Nucleated RBC % (auto) 0 % 05/12/24 14:36 Nucleated RBCs # 0.0 /100WBC 05/12/24 14:36 ESR 44 mm/hr (0-15) H 05/12/24 14:36 Sodium 138 mmol/L (136-145) 05/12/24 14:36 Potassium 4.3 mmol/L (3.5-5.1) 05/12/24 14:36 Chloride 99 mmol/L (98-107) 05/12/24 14:36 Carbon Dioxide 27 mmol/L (22-29) 05/12/24 14:36 Anion Gap 16.3 (5-19) 05/12/24 14:36 BUN 34 mg/dL (8-23) H 05/12/24 14:36 Creatinine 1.7 mg/dL (0.5-0.9) H 05/12/24 14:36 GFR Calculation 29.9 mL/min (90-130) L 05/12/24 14:36 Glucose 108 mg/dL (65-115) 05/12/24 14:36 Estimat Average Glucose 114 05/12/24 14:36 Hemoglobin A1c 5.6 % (4.0-6.0) 05/12/24 14:36 Calculated Osmolality 294 mOsm/kg (285-295) 05/12/24 14:36 Calcium 9.8 mg/dL (8.5-10.5) 05/12/24 14:36 Magnesium 2.1 mg/dL (1.7-2.3) 05/12/24 14:36 Total Bilirubin 0.2 mg/dL (0.15-1.2) 05/12/24 14:36 AST 15 U/L (0-32) 05/12/24 14:36 ALT 7 U/L (0-33) 05/12/24 14:36 Alkaline Phosphatase 86 U/L (35-105) 05/12/24 14:36 Creatine Kinase 47 U/L (26-192) 05/12/24 14:36 Troponin T Baseline 14 ng/L (0-10) H 05/12/24 14:36 Troponin T 120 Minute 14.08 ng/L (0-10) H 05/12/24 16:33 Delta Troponin T 0.08 ABS# (0-10) 05/12/24 16:33 C-Reactive Protein 6.6 mg/L (0.0-4.9) H 05/12/24 14:36 NT-Pro-B Natriuret Pep 68 pg/mL (0-125) 05/12/24 14:36 Total Protein 7.2 g/dL (6.6-8.7) 05/12/24 14:36 Albumin 4.4 g/dL (3.5-5.2) 05/12/24 14:36 Globulin 2.8 g/dL (1.3-4.6) 05/12/24 14:36 Triglycerides 107 mg/dL (0-150) 05/12/24 14:36 Cholesterol 221 mg/dL (0-200) H 05/12/24 14:36 LDL Cholesterol, Calc 109 mg/dL (50-129) 05/12/24 14:36 HDL Cholesterol 91 mg/dL (60-100) 05/12/24 14:36 LDL/HDL Ratio 1.20 RATIO (0.00-3.22) 05/12/24 14:36 Cholesterol/HDL Ratio 2.43 mg/dL (0.0-4.40) 05/12/24 14:36 Procalcitonin 0.13 ng/mL (0-0.5) 05/12/24 14:36 TSH 1.41 uIU/mL (0.27-4.20) 05/12/24 14:36 Urine Color Yellow (Yellow) 05/12/24 16:12 Urine Appearance Cloudy (CLEAR) A 05/12/24 16:12 Urine pH Not Reportable 05/12/24 16:12 Ur Specific [place] Not Reportable 05/12/24 16:12 Urine Protein Not Reportable 05/12/24 16:12 Urine Glucose (UA) Not Reportable 05/12/24 16:12 Urine Ketones Not Reportable 05/12/24 16:12 Urine Blood Not Reportable 05/12/24 16:12 Urine Nitrate Not Reportable 05/12/24 16:12 Urine Bilirubin Not Reportable 05/12/24 16:12 Urine Urobilinogen Not Reportable 05/12/24 16:12 Ur Leukocyte Esterase Not Reportable 05/12/24 16:12 Urine RBC 0-4 /hpf (0-2) H 05/12/24 16:12 Urine WBC 55-80 /hpf (0-5) H 05/12/24 16:12 Ur Squamous Epith Cells 5-10 /hpf (0-5) H 05/12/24 16:12 Amorphous Sediment Not Reportable 05/12/24 16:12 Urine Bacteria 2+ /hpf (NONE) H 05/12/24 16:12 Coronavirus (PCR) Negative (Negative) 05/12/24 16:04 Influenza A (PCR) Negative (Negative) 05/12/24 16:04 Influenza Type B (PCR) Negative (Negative) 05/12/24 16:04 RSV (PCR) Negative (Negative) 05/12/24 16:04 All radiology interpretation(s) finalized by discharge Discharge Plan Discharge Patient Disposition: Admitted As Inpatient Admit Provider: Chris Milton Clinical Impression: Cystitis, Acute kidney injury, Encephalopathy acute, Cognitive dysfunction Condition: Stable Coding Level of Care Code ED Director Of [employer] for Angelique Torres
--- NOTE | 2024-05-12 15:03 | XRR_ITS ---
PROCEDURE INFORMATION: Exam: XR Chest Exam date and time: 05/12/2024 3:04 PM Age: 69 years old Clinical indication: Cough and dyspnea; Patient HX: AMS; Post op foot surg x 2 days ago TECHNIQUE: Imaging protocol: Radiologic exam of the chest. Views: 1 view. COMPARISON: CT chest w con* [id number] 09/21/2023 9:06 AM FINDINGS: Lungs: No focal consolidation. Pleural spaces: No evidence of pneumothorax. No evidence of pleural effusion. Heart/Mediastinum: Cardiomediastinal silhouette is within normal limits. Bones/joints: No evidence of acute osseous abnormality. XR/XR chest 1V portable [id number] IMPRESSION: 1. No acute cardiopulmonary abnormality.
[2024-05-12 15:11] LABS: Troponin(5th) Baseline 14 ng/L (0-10)
[2024-05-12 15:13] LABS: Alanine Aminotransferase 7 U/L (0-33); Albumin Level 4.4 g/dL (3.5-5.2); Alkaline Phosphatase 86 U/L (35-105); Anion Gap 16.3 (5-19); Aspartate Amino Transferase 15 U/L (0-32); Blood Urea Nitrogen 34 mg/dL (8-23); Calcium 9.8 mg/dL (8.5-10.5); Carbon Dioxide 27 mmol/L (22-29); Chloride 99 mmol/L (98-107); Creatine Phosphokinase 47 U/L (26-192); Creatinine Clr Calc Pharmacy 26.3698; Globulin 2.8 g/dL (1.3-4.6); Glomerular Filtration Rate 29.9 mL/min (90-130); Glucose 108 mg/dL (65-115); Magnesium 2.1 mg/dL (1.7-2.3); Osmolality Calculated 294 mOsm/kg (285-295); Potassium 4.3 mmol/L (3.5-5.1); Sodium 138 mmol/L (136-145); Total Bilirubin 0.2 mg/dL (0.15-1.2); Total Protein 7.2 g/dL (6.6-8.7)
[2024-05-12 16:17] LABS: Add Urine Microscopic? NO
[2024-05-12 16:21] LABS: Urine Appearance Cloudy (CLEAR); Urine Color Yellow (Yellow)
[2024-05-12 16:22] LABS: UA Manual Slide Review YES
[2024-05-12 16:28] LABS: Add Urine Culture? Yes; Bacteria Urine 2+ /hpf; RBC Urine 0-4 /hpf (0-2); WBC Urine 55-80 /hpf (0-5)
[2024-05-12 16:49] LABS: Covid PCR NEGATIVE (Negative); Influenza A NEGATIVE (Negative); Influenza B NEGATIVE (Negative); Respiratory Syncytial Virus Ce NEGATIVE (Negative)
[2024-05-12 16:53] LABS: Troponin 5 2HR 14.08 ng/L (0-10); Troponin 5 2HR Delta 0.08 ABS# (0-10)
--- NOTE | 2024-05-12 17:27 | CTR_ITS ---
PROCEDURE INFORMATION: Exam: CT Abdomen And Pelvis Without Contrast Exam date and time: 05/12/2024 6:03 PM Age: 69 years old Clinical indication: Abnormal findings; Abnormal lab test; Abnormal kidney function lab tests and elevated wbc; Prior surgery; Surgery date: 6+ months; Surgery type: Tubal; Patient HX: Elevated wbc with arpit; Additional info: Abdominal pain TECHNIQUE: Imaging protocol: Computed tomography of the abdomen and pelvis without contrast. Radiation optimization: All CT scans at this facility use at least one of these dose optimization techniques: automated exposure control; mA and/or kV adjustment per patient size (includes targeted exams where dose is matched to clinical indication); or iterative reconstruction. COMPARISON: PT PET skull to thigh INIT [id number] 10/11/2023 1:42 PM RADIATION DOSE METRICS: Total DLP (mGy-cm): 368.18 FINDINGS: Lungs: Subsegmental bibasilar atelectasis. The visualized lung bases are otherwise clear. Diaphragm: No evidence of diaphragmatic defect. Liver: No evidence of focal hepatic lesion within limitation of a noncontrast exam. Gallbladder and biliary ducts: Gallbladder is unremarkable. No evidence of intra-hepatic or extra-hepatic biliary dilatation. Pancreas: Grossly unremarkable. Spleen: Grossly unremarkable. Adrenal glands: Grossly unremarkable. Kidneys and ureters: Mild-moderate left renal parenchymal atrophy. No evidence of hydronephrosis or ureteral stone. Stomach and bowel: Colonic diverticulosis without evidence of acute diverticulitis. No bowel obstruction or perienteric inflammatory changes. There is wall thickening of the sigmoid colon, possibly secondary to prior bouts of diverticulitis. Consider correlation with follow-up colonoscopy to exclude an underlying mucosal lesion. Appendix: Normal appendix. Intraperitoneal space: No evidence of free air or fluid collection. Vasculature: Atherosclerosis without evidence of aneurysmal dilitation of abdominal aorta. Lymph nodes: No evidence of adenopathy. Urinary bladder: Mild diffuse bladder wall haziness. Otherwise grossly unremarkable. Reproductive: Grossly unremarkable. Bones/joints: No evidence of acute fracture or aggresive osseous lesion. Soft tissues: No evidence of fluid collection or hematoma in the superficial soft tissues. CT/CT abdomen pelvis wo con [id number] IMPRESSION: 1. No evidence of acute abnormality in the abdomen or pelvis within limitations of a noncontrast exam. 2. Possible cystitis. 3. Wall thickening of the sigmoid colon, possibly secondary to prior bouts of diverticulitis. Consider correlation with follow-up colonoscopy to exclude an underlying mucosal lesion.
--- NOTE | 2024-05-12 17:27 | PM.HP ---
Providers/Chief Complaint Primary Care Provider: Mony Mariscal MD Chief Complaint: AMS History of Present Illness Melanie Ko is a 69 year old female with a past medical history of hypertension, hyperlipidemia, GI bleed who presents [facility] for altered mental status. Currently patient is alert to person, not to place, not to time, she keeps telling me that she is confused and her family members are concerned that she is confused so she thinks that she needs to go to the hospital and keep confirming with her that she is in the ER when she keeps telling me that she needs to go to the hospital. When I asked her why she here, she tells me that she has been confused she has been having abdominal pain, nausea, denies any headache, blurry vision, no neck pain, no chest pain, does complain of right shoulder pain, she tells me that she required surgery for a rotator cuff tear by Dr. Ellis, in September, denies any lightheadedness, dizziness, no falls, she is able to walk without a walker, she lives at home with her who is at bedside, he tells me that she has been confused for the last few months, and some of her confusion has worsened, but is significantly profound now, he has to continually repeat questions for her, she reports a history of a GI bleed, with a gastric ulcer requiring EGD, she required significant amount of blood she tells me Review of Systems Const: Denies: fever(s) or chills Card: Denies: chest pain Resp: Denies: dyspnea Musc: Denies: neck pain Medications/Allergies Home Medications Medication Instructions Recorded Confirmed Last Taken Type lisinopril 2.5 mg tablet 2.5 mg PO DAILY 05/08/20 12/08/23 10/12/23 History duloxetine 60 mg capsule,delayed 60 mg PO DAILY 10/05/22 12/08/23 Unknown History release levothyroxine 25 mcg tablet 50 mcg PO DAILY 10/05/22 12/08/23 10/13/23 History (Euthyrox) baclofen 20 mg tablet 20 mg PO DAILY PRN Pain 11/10/22 12/08/23 10/12/23 History rosuvastatin 5 mg tablet (Crestor) 5 mg PO 1XD 10/12/23 12/08/23 10/12/23 History hydrocodone 10 mg-acetaminophen 1 tab PO Q6H PRN pain 5 days #11/08/23 12/08/23 Unknown Rx 325 mg tablet tabs hydrocodone 10 mg-acetaminophen 1 tab PO Q6H PRN pain 5 days #12/07/23 12/08/23 Unknown Rx 325 mg tablet tabs hydrocodone 10 mg-acetaminophen 1 tab PO Q6H PRN pain 5 days #12/08/23 Unknown Rx 325 mg tablet tabs Allergies Allergy/AdvReac Type Severity Reaction Status Date / Time NSAIDS (Non-Steroidal Allergy Intermediate HISTORY OF Verified 12/08/23 09:49 Anti-Inflamma BLEEDING ULCER PFSH Acute PFSH: Medical History (Updated 05/12/24 @ 17:30 by Chris Milton MD) History of hypertension Coronary artery disease Surgical History (Updated 05/12/24 @ 17:31 by Chris Milton MD) H/O shoulder surgery Social History Smoking and tobacco/nicotine status: former use of tobacco/nicotine Quit status (tobacco/nicotine): has quit using Second hand smoke exposure: No Alcohol intake: never Substance/Drug Use: never Lives independently: Yes Household members: spouse Marital status: Highest education level completed: High School Graduate Special andreina needs: No Vitals/I&O/Wt Last Vital Signs Temp 97.8 F 05/12/24 13:26 Pulse 90 05/12/24 13:26 Resp 17 05/12/24 13:26 BP 133/78 05/12/24 13:26 Pulse Ox 95 05/12/24 13:26 O2 Del Method Room Air 05/12/24 13:26 Weight last 48 hrs Weight 56.699 kg Physical Exam Const: COMMON NORMALS: no acute distress EXAM LIMITATIONS: altered mental status ORIENTATION/CONSCIOUSNESS: Yes awake, Yes oriented to person and Yes confused; not oriented to place and not oriented to time Eye: COMMON NORMALS: Equal, round and reactive pupils present and EOMs intact bilaterally Resp: COMMON NORMALS: normal respiratory effort, No retractions, No use of accessory muscles and clear to auscultation bilaterally AUSCULTATION: clear to auscultation bilaterally Cardio: COMMON NORMALS: no JVD, regular rate, regular rhythm, S1 normal heart sound present and S2 normal heart sound present RATE: regular rate RHYTHM: regular rhythm HEART SOUNDS: S1 normal heart sound present and S2 normal heart sound present GI: COMMON NORMALS: Normal to inspection, nondistended, normoactive bowel sounds present, Soft to palpation and non-tender Extremity: COMMON NORMALS: no calf tenderness and no pedal edema Neuro: COMMON NORMALS: CN's II-XII intact bilaterally, moves all extremities and no focal motor deficits Data 05/12/24 14:36 05/12/24 14:36 Micro: Microbiology 05/12/24 14:36 Blood Culture - Preliminary Blood SPECIMEN COLLECTED 05/12/24 14:40 Blood Culture - Preliminary Blood SPECIMEN COLLECTED A&P Assessment and plan (1) Altered mental status: Qualifiers: Altered mental status type: transient alteration of awareness Qualified Code(s): R40.4 - Transient alteration of awareness Plan Altered mental status -Component of UTI, continue Rocephin -Follow urine cultures -Follow blood cultures -TSH, ammonia levels, urine toxicology screen at -Complaints of abdominal pain CT scan abdomen pelvis -IV fluids, OVIDIO creatinine 1.7 -Neurochecks, no stroke scale, aspiration precautions -Monitor mentation closely -Full code -SCDs for DVT prophylaxis, history of GI bleed Spoke to patient, spoke to patient's , spoke to ER physician Attestations Medical Necessity Statement*: Patient requires hospitalization, inpatient, greater than 2 midnights due to altered mental status Diagnoses Altered mental status R40.4 Altered mental status type: transient alteration of awareness
--- NOTE | 2024-05-12 17:33 | ECG_ITS ---
[facility] Test Date: 2024-05-12 Pat Name: Melanie Ko Department: Room: Gender: Female Is Project Manager: : 1955 Requested By: Nagi Pinto Order Number: [id number] Reading MD: MARRY SKINNER Measurements Intervals [place] Rate: 76 P: 61 SD: 173 QRS: 57 QRSD: 77 T: 65 QT: 371 QTc: 419 Interpretive Statements SINUS RHYTHM WITH OCCASIONAL SUPRAVENTRICULAR PREMATURE COMPLEXES POSSIBLE LEFT ATRIAL ENLARGEMENT [-0.1mV P-WAVE IN V1/V2] Compared to ECG 05/12/2024 14:52:50 No significant changes Electronically Signed On 05-14-2024 19:32:02 BLASTING CONTRACT MAN by MARRY SKINNER [email or web address]
[2024-05-12 17:35] LABS: Erythrocyte Sedimentation Rate 44 mm/hr (0-15)
[2024-05-12 17:56] LABS: NT Pro B Type Natriuretic Pept 68 pg/mL (0-125); Procalcitonin 0.13 ng/mL (0-0.5); Thyroid Stimulating Hormone 1.41 uIU/mL (0.27-4.20)
[2024-05-12 18:01] LABS: Ammonia 10 umol/L (11-51)
[2024-05-12 18:07] LABS: C Reactive Protein 6.6 mg/L (0.0-4.9)
[2024-05-12] MEDS: cefTRIAXone 1,000 mg SDV 1000 MG IVP (18:26)
--- NOTE | 2024-05-12 20:25 | ECG_ITS ---
[facility] Date: 2024-05-12 Pat Name: Melanie Ko Department: Room: 279 Gender: Female Clinical Pharmacy Specialist: : 1955 Requested By: Nagi Pinto Order Number: [id number] Reading MD: MARRY SKINNER Measurements Intervals [place] Rate: 75 P: 73 VT: 173 QRS: 63 QRSD: 84 T: 65 QT: 369 QTc: 413 Interpretive Statements SINUS RHYTHM Compared to ECG 05/12/2024 17:33:20 No significant changes Electronically Signed On 05-14-2024 19:32:00 DISC RECORDIST by MARRY SKINNER [email or web address]
[2024-05-12 21:09] LABS: Chol HDL Ratio 2.43 mg/dL (0.0-4.40); Cholesterol 221 mg/dL (0-200); Estmated Average Glucose 114; HDL Cholesterol 91 mg/dL (60-100); Hemoglobin A1C 5.6 % (4.0-6.0); LDL Cholesterol Calculated 109 mg/dL (50-129); Triglycerides 107 mg/dL (0-150)
[2024-05-12] MEDS: pantoprazole 40 mg SDV IVP (21:10)
[2024-05-12 21:12] LABS: Troponin 5 6HR 15.75 ng/L (0-10); Troponin 5 6HR Delta 1.75 ng/L (0-12)
[2024-05-12] MEDS: sodium chloride 0.9% 1,000 ML 75 ML IV (21:22)
[2024-05-13] VITALS (9 sets, daily range): BP systolic 106–160; BP diastolic 71–82; PULSE 75–84; RESP 15–18; TEMP 36.7–37.2; O2SAT 90–96
[2024-05-13] MEDS: levothyroxine 25 mcg Tablet 50 MCG PO (06:26)
[2024-05-13] MEDS: duloxetine 60 mg Capsule PO (08:06)
[2024-05-13 08:18] LABS: Basophils # 0.1 10^3/uL (0.0-0.1); Basophils % 0.7 %; Eosinophils # 0.3 10^3/uL (0.0-0.8); Eosinophils % 2.7 %; Hematocrit 35.7 % (36-47); Lymphocytes # 2.5 10^3/uL (0.8-4.8); Lymphocytes % 21.4 %; Mean Corpuscular HGB Conc 31.4 g/dL (30-55); Mean Corpuscular Hemoglobin 28.6 pg (27-33); Mean Corpuscular Volume 91.1 fl (85-98); Monocytes % 8.3 %; Neutrophils # 7.69 10^3/uL (1.8-7.7); Neutrophils % 66.6 %; Nucleated Red Blood Cells % 0 %; Platelet Count 216 10^3/cmm (157-399); Red Blood Count 3.92 10^6/uL (3.85-5.65); Red Cell Distribution Width 13.2 % (12.1-15.1); White Blood Count 11.54 10^3/uL (3.29-11.43)
[2024-05-13 08:35] LABS: Alanine Aminotransferase 7 U/L (0-33); Albumin Level 3.6 g/dL (3.5-5.2); Alkaline Phosphatase 78 U/L (35-105); Anion Gap 14.2 (5-19); Aspartate Amino Transferase 14 U/L (0-32); Blood Urea Nitrogen 25 mg/dL (8-23); Calcium 9.4 mg/dL (8.5-10.5); Carbon Dioxide 26 mmol/L (22-29); Chloride 103 mmol/L (98-107); Creatinine Clr Calc Pharmacy 37.3314; Globulin 3.3 g/dL (1.3-4.6); Glomerular Filtration Rate 44.7 mL/min (90-130); Glucose 108 mg/dL (65-115); Magnesium 1.8 mg/dL (1.7-2.3); Osmolality Calculated 293 mOsm/kg (285-295); Phosphorus 2.7 mg/dL (2.5-4.5); Potassium 4.2 mmol/L (3.5-5.1); Sodium 139 mmol/L (136-145); Total Bilirubin 0.2 mg/dL (0.15-1.2); Total Protein 6.9 g/dL (6.6-8.7)
--- NOTE | 2024-05-13 11:23 | PC.NURSE ---
In room to discuss the smell. It smell like some vape. Patient's daughter has a Vape on her lap. Discussed with patient and daughter that the hospital is a smoke free facility and which includes vaping. Patient denies using a vape. Patient daughter states that she has been going outside to the car and that what the room smells like is perfume that she sprayed on her momma because she hasn't had a shower. I explained to the daughter that I just needed to make sure that she knew. 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 I stated, I promise I wasn't calling you stupid I just need to check and make sure you knew, Patient's daughter states, I do.
--- OUTSIDE RECORDS SUMMARY | 2024-05-13 12:31 | XMS_ITS ---
Laboratory report Created on: March 02, 2024 DAISHA FIELDS : 1955 Sex: Female Author Name MIKE ARREAGA [facility] Unknown PROBLEMS Problems List Code Description R94.6 RESULTS Laboratory Orders Date Order Code Test 2022-01-22 [id number] TSH+FREE T4 Laboratory Results Date LOINC Test Value Unit Reference Range Interpre tation 2022-01-22 29141-2 TSH 1.65 UIU/ML 0.450-4.500 2022-01-22 3024-7 T4,FREE(DIRECT) 1.1 NG/DL 0.82-1.77
--- OUTSIDE RECORDS SUMMARY | 2024-05-13 12:31 | XMS_ITS ---
Laboratory report Created on: April 21, 2024 DAISHA FIELDS : 1955 Sex: Female Author Name STARLA DIETRICH Unknown PROBLEMS Problems List Code Description R73.09 RESULTS Laboratory Orders Date Order Code Test 2024-04-18 [id number] CBC WITH DIFFERE NTIAL/PLATELET 2024-04-18 228265 COMP. METABOLIC PANEL (14) 2024-04-18 673085 HEMOGLOBIN A1C Laboratory Results Date LOINC Test Value Unit Reference Range Interpre tation 2024-04-18 6690-2 WBC 8.6 X10E3/UL 3.4-10.8 2024-04-18 789-8 RBC 3.98 X10E6/UL 3.77-5.28 2024-04-18 718-7 HEMOGLOBIN 11.5 G/DL 11.1-15.9 2024-04-18 4544-3 HEMATOCRIT 36.1 % 34.0-46.6 2024-04-18 787-2 MCV 91 FL 79-97 2024-04-18 785-6 MCH 28.9 PG 26.6-33.0 2024-04-18 786-4 MCHC 31.9 G/DL 31.5-35.7 2024-04-18 788-0 RDW 12.5 % 11.7-15.4 2024-04-18 777-3 PLATELETS 326 X10E3/UL 839-872 4360-10-30 770-8 NEUTROPHILS 65 % 2024-04-18 736-9 LYMPHS 21 % 2024-04-18 5905-5 MONOCYTES 10 % 2024-04-18 713-8 EOS 3 % 2024-04-18 706-2 BASOS 1 % 2024-04-18 751-8 NEUTROPHILS (ABSOLUTE) 5.6 X10E3/UL 1.4-7.0 2024-04-18 731-0 LYMPHS (ABSOLUTE) 1.8 X10E3/UL 0.7-3.1 2024-04-18 742-7 MONOCYTES(ABSOLUTE) .8 X10E3/UL 0.1-0.9 2024-04-18 711-2 EOS (ABSOLUTE) .3 X10E3/UL 0.0-0.4 2024-04-18 704-7 BASO (ABSOLUTE) .1 X10E3/UL 0.0-0.2 2024-04-18 24697-9 IMMATURE GRANULOCYTES 0 % 2024-04-18 02760-8 IMMATURE GRANS (ABS) 0 X10E3/UL 0.0-0.1 2024-04-18 2345-7 GLUCOSE 121 MG/DL 70-99 H 2024-04-18 3094-0 BUN 23 MG/DL 8-27 2024-04-18 2160-0 CREATININE 1.4 MG/DL 0.57-1.00 H 2024-04-18 71633-4 EGFR 41 ML/MIN/1.73 >59 L 2024-04-18 3097-3 BUN/CREATININE RATIO 16 12-2024-04-18 2951-2 SODIUM 139 MMOL/L 182-776 6246-10-30 2823-3 POTASSIUM 4.5 MMOL/L 3.5-5.2 2024-04-18 2075-0 CHLORIDE 99 MMOL/L 96-106 2024-04-18 2028-9 CARBON DIOXIDE, TOTAL 26 MMOL/L 20-29 2024-04-18 16463-0 CALCIUM 10.1 MG/DL 8.7-10.3 2024-04-18 2885-2 PROTEIN, TOTAL 7 G/DL 6.0-8.5 2024-04-18 1751-7 ALBUMIN 4.3 G/DL 3.9-4.9 2024-04-18 55747-2 GLOBULIN, TOTAL 2.7 G/DL 1.5-4.5 2024-04-18 1975-2 BILIRUBIN, TOTAL <0.2 MG/DL 0.0-1.2 2024-04-18 6768-6 ALKALINE PHOSPHATASE 76 IU/L 44-121 2024-04-18 1920-8 AST (SGOT) 19 IU/L 0-40 2024-04-18 1742-6 ALT (SGPT) 10 IU/L 0-32 2024-04-18 4548-4 HEMOGLOBIN A1C 5.9 % 4.8-5.6 H
--- OUTSIDE RECORDS SUMMARY | 2024-05-13 12:31 | XMS_ITS ---
Laboratory report Created on: February 22, 2024 BRIANNAMADELYNDAISHA : 1955 Sex: Female Author Name STARLA DIETRICH [employer] Unknown PROBLEMS Problems List Code Description E03.9 R73.09 E78.5 RESULTS Laboratory Orders Date Order Code Test 2024-01-12 [id number] CMP14+CBC/D/PLT+ TSH 2024-01-12 902994 LIPID PANEL W/ C HOL/HDL RATIO 2024-01-12 781062 HEMOGLOBIN A1C Laboratory Results Date LOINC Test Value Unit Reference Range Interpre tation 2024-01-12 2345-7 GLUCOSE 106 MG/DL 70-99 H 2024-01-12 3094-0 BUN 20 MG/DL 8-27 2024-01-12 2160-0 CREATININE 1.32 MG/DL 0.57-1.00 H 2024-01-12 02544-1 EGFR 44 ML/MIN/1.73 >59 L 2024-01-12 3097-3 BUN/CREATININE RATIO 15 12-28 2024-01-12 2951-2 SODIUM 139 MMOL/L 795-957 3708-07-25 2823-3 POTASSIUM 4.6 MMOL/L 3.5-5.2 2024-01-12 2075-0 CHLORIDE 100 MMOL/L 96-106 2024-01-12 2028-9 CARBON DIOXIDE, TOTAL 25 MMOL/L 20-29 2024-01-12 57683-2 CALCIUM 10.4 MG/DL 8.7-10.3 H 2024-01-12 2885-2 PROTEIN, TOTAL 7 G/DL 6.0-8.5 2024-01-12 1751-7 ALBUMIN 4.5 G/DL 3.9-4.9 2024-01-12 68585-8 GLOBULIN, TOTAL 2.5 G/DL 1.5-4.5 2024-01-12 1975-2 BILIRUBIN, TOTAL <0.2 MG/DL 0.0-1.2 2024-01-12 6768-6 ALKALINE PHOSPHATASE 70 IU/L 44-121 2024-01-12 1920-8 AST (SGOT) 19 IU/L 0-40 2024-01-12 1742-6 ALT (SGPT) 10 IU/L 0-32 2024-01-12 13901-5 TSH 1.58 UIU/ML 0.450-4.500 2024-01-12 6690-2 WBC 7.1 X10E3/UL 3.4-10.8 2024-01-12 789-8 RBC 4.01 X10E6/UL 3.77-5.28 2024-01-12 718-7 HEMOGLOBIN 11.7 G/DL 11.1-15.9 2024-01-12 4544-3 HEMATOCRIT 35.8 % 34.0-46.6 2024-01-12 787-2 MCV 89 FL 79-97 2024-01-12 785-6 MCH 29.2 PG 26.6-33.0 2024-01-12 786-4 MCHC 32.7 G/DL 31.5-35.7 2024-01-12 788-0 RDW 13.1 % 11.7-15.4 2024-01-12 777-3 PLATELETS 295 X10E3/UL 912-558 6866-07-25 770-8 NEUTROPHILS 63 % 2024-01-12 736-9 LYMPHS 24 % 2024-01-12 5905-5 MONOCYTES 9 % 2024-01-12 713-8 EOS 3 % 2024-01-12 706-2 BASOS 1 % 2024-01-12 751-8 NEUTROPHILS (ABSOLUTE) 4.5 X10E3/UL 1.4-7.0 2024-01-12 731-0 LYMPHS (ABSOLUTE) 1.7 X10E3/UL 0.7-3.1 2024-01-12 742-7 MONOCYTES(ABSOLUTE) .6 X10E3/UL 0.1-0.9 2024-01-12 711-2 EOS (ABSOLUTE) .2 X10E3/UL 0.0-0.4 2024-01-12 704-7 BASO (ABSOLUTE) .1 X10E3/UL 0.0-0.2 2024-01-12 92616-1 IMMATURE GRANULOCYTES 0 % 2024-01-12 28876-8 IMMATURE GRANS (ABS) 0 X10E3/UL 0.0-0.1 2024-01-123-3 CHOLESTEROL, TOTAL 222 MG/DL 100-199 H 2024-01-12 2571-8 TRIGLYCERIDES 113 MG/DL 0-149 2024-01-12 2085-9 HDL CHOLESTEROL 96 MG/DL >39 2024-01-12 70137-5 VLDL CHOLESTEROL BARI 19 MG/DL 5-40 2024-01-12 78307-1 LDL CHOL CALC ([facility]) 107 MG/DL 0-99 H 2024-01-12 9830-1 T CHOL/HDL RATIO 2.3 RATIO 0.0-4.4 2024-01-12 4718-4 HEMOGLOBIN A1C 6.1 % 4.8-5.6 H
--- OUTSIDE RECORDS SUMMARY | 2024-05-13 12:31 | XMS_ITS ---
Laboratory report Created on: March 02, 2024 BRIANNAMADELYN DAISHA : 1955 Sex: Female Author Name STARLA DIETRICH [employer] Unknown PROBLEMS Problems List Code Description I10 R73.09 E78.5 E03.9 RESULTS Laboratory Orders Date Order Code Test 2023-01-11 [id number] CMP14+CBC/D/PLT+ TSH 2023-01-11 906446 LIPID PANEL W/ C HOL/HDL RATIO 2023-01-11 397016 HEMOGLOBIN A1C 2023-01-11 402322 THYROXINE (T4) F REE, DIRECT Laboratory Results Date LOINC Test Value Unit Reference Range Interpre tation 2023-01-11 2345-7 GLUCOSE IMSPUN MG/DL 70-99 2023-01-11 3094-0 BUN 21 MG/DL 8-27 2023-01-11 2160-0 CREATININE 1.12 MG/DL 0.57-1.00 H 2023-01-11 80375-3 EGFR 54 ML/MIN/1.73 >59 L 2023-01-11 3097-3 BUN/CREATININE RATIO 19 12-2023-01-11 2951-2 SODIUM 139 MMOL/L 891-384 7844-07-25 2823-3 POTASSIUM IMSPUN MMOL/L 3.5-5.2 2023-01-11 2075-0 CHLORIDE 99 MMOL/L 96-106 2023-01-11 2028-9 CARBON DIOXIDE, TOTAL 24 MMOL/L -2023-01-11 40065-0 CALCIUM 9.5 MG/DL 8.7-10.3 2023-01-11 2885-2 PROTEIN, TOTAL 6.8 G/DL 6.0-8.5 2023-01-11 1751-7 ALBUMIN 4.4 G/DL 3.9-4.9 2023-01-11 78531-7 GLOBULIN, TOTAL 2.4 G/DL 1.5-4.5 2023-01-11 1759-0 A/G RATIO 1.8 1.2-2.2 2023-01-11 1975-2 BILIRUBIN, TOTAL <0.2 MG/DL 0.0-1.2 2023-01-11 6768-6 ALKALINE PHOSPHATASE 61 IU/L 44-121 2023-01-11 1920-8 AST (SGOT) 22 IU/L 0-40 2023-01-11 1742-6 ALT (SGPT) 10 IU/L 0-32 2023-01-11 39687-9 TSH .998 UIU/ML 0.450-4.500 2023-01-11 6690-2 WBC 5.1 X10E3/UL 3.4-10.8 2023-01-11 789-8 RBC 3.92 X10E6/UL 3.77-5.28 2023-01-11 718-7 HEMOGLOBIN 11.9 G/DL 11.1-15.9 2023-01-11 4544-3 HEMATOCRIT 35.9 % 34.0-46.6 2023-01-11 787-2 MCV 92 FL 79-97 2023-01-11 785-6 MCH 30.4 PG 26.6-33.0 2023-01-11 786-4 MCHC 33.1 G/DL 31.5-35.7 2023-01-11 788-0 RDW 13.4 % 11.7-15.4 2023-01-11 777-3 PLATELETS 228 X10E3/UL 908-223 8083-07-25 770-8 NEUTROPHILS 48 % 2023-01-11 736-9 LYMPHS 33 % 2023-01-11 5905-5 MONOCYTES 13 % 2023-01-11 713-8 EOS 4 % 2023-01-11 706-2 BASOS 2 % 2023-01-11 751-8 NEUTROPHILS (ABSOLUTE) 2.5 X10E3/UL 1.4-7.0 2023-01-11 731-0 LYMPHS (ABSOLUTE) 1.7 X10E3/UL 0.7-3.1 2023-01-11 742-7 MONOCYTES(ABSOLUTE) .7 X10E3/UL 0.1-0.9 2023-01-11 711-2 EOS (ABSOLUTE) .2 X10E3/UL 0.0-0.4 2023-01-11 704-7 BASO (ABSOLUTE) .1 X10E3/UL 0.0-0.2 2023-01-11 49565-4 IMMATURE GRANULOCYTES 0 % 2023-01-11 70602-8 IMMATURE GRANS (ABS) 0 X10E3/UL 0.0-0.1 2023-01-113-3 CHOLESTEROL, TOTAL 215 MG/DL 100-199 H 2023-01-11 2571-8 TRIGLYCERIDES 85 MG/DL 0-149 2023-01-11 2085-9 HDL CHOLESTEROL 112 MG/DL >39 2023-01-11 76276-0 VLDL CHOLESTEROL BARI 15 MG/DL 5-40 2023-01-11 41720-5 LDL CHOL CALC ([facility]) 88 MG/DL 0-99 2023-01-11 9830-1 T CHOL/HDL RATIO 1.9 RATIO 0.0-4.4 2023-01-11 4548-4 HEMOGLOBIN A1C 6 % 4.8-5.6 H 2023-01-11 3024-7 T4,FREE(DIRECT) 1.03 NG/DL 0.82-1.77
--- OUTSIDE RECORDS SUMMARY | 2024-05-13 12:31 | XMS_ITS ---
Author Name Unknown Organization Unknown ALLERGIES AND ADVERSE REACTIONS No information ASSESSMENT No information CHIEF COMPLAINT No information Medications Date Medication Startdate Stopdate Stopreason Active Dosequantit y Refills Ndccode Drugcode Pharmacyid Isprescription Srcstatus 08/01 16:42 :20 Medrol (Geo) 4 mg tablets in a dose pack 07/25/2023 00:00:00 00:00:00 Removed 0 21 tablet 0 [id number] 604 [id number] 04 320 False Inactive 07/25 18:21 :46 Medrol (Geo) 4 mg tablets in a dose pack 07/25/2023 00:00:00 00:00:00 Removed 0 21 tablet 0 [id number] 604 [id number] 04 320 True Inactive 07/25 00:00 :00 Medrol (Geo) 4 mg tablets in a dose pack 07/25/2023 00:00:00 00:00:00 Other 0 null null [id number] 604 [id number] 04 null False Inactive OBJECTIVE DATA No information PHYSICAL EXAMINATION No information TREATMENT PLAN No information PROBLEMS No information RESULTS No information REVIEW OF SYSTEMS No information SUBJECTIVE DATA No information VITAL SIGNS No information
--- OUTSIDE RECORDS SUMMARY | 2024-05-13 12:31 | XMS_ITS ---
Laboratory report Created on: March 02, 2024 BRIANNAPEDRO LUIS JOSHIDY : 1955 Sex: Female Author Name STARLA DIETRICH [employer] Unknown PROBLEMS Problems List Code Description M15.9 I10 RESULTS Laboratory Orders Date Order Code Test 2021-11-10 265875 BASIC METABOLIC PANEL (8) 2021-11-10 680663 TSH Laboratory Results Date LOINC Test Value Unit Reference Range Interpre tation 2021-11-10 2345-7 GLUCOSE 96 MG/DL 65-99 2021-11-10 3094-0 BUN 26 MG/DL 8-27 2021-11-10 2160-0 CREATININE 1.01 MG/DL 0.57-1.00 H 2021-11-10 82897-9 EGFR 62 ML/MIN/1.73 >59 2021-11-10 3097-3 BUN/CREATININE RATIO 14 06-2021-11-10 2951-2 SODIUM 140 MMOL/L 009-943 1082-05-24 2823-3 POTASSIUM 4.9 MMOL/L 3.5-5.2 2021-11-10 2075-0 CHLORIDE 103 MMOL/L 96-106 2021-11-10 2028-9 CARBON DIOXIDE, TOTAL 22 MMOL/L 2021-11-10 38114-2 CALCIUM 9 MG/DL 8.7-10.3 2021-11-10 36993-4 TSH .421 UIU/ML 0.450-4.500 L
--- OUTSIDE RECORDS SUMMARY | 2024-05-13 12:31 | XMS_ITS ---
Laboratory report Created on: March 02, 2024 DAISHA FIELDS : 1955 Sex: Female Author Name STARLA DIETRICH Unknown PROBLEMS Problems List Code Description E03.9 R73.09 E78.5 RESULTS Laboratory Orders Date Order Code Test 2023-07-14 184263 CMP14+CBC/D/PLT+ TSH 2023-07-14 765272 LIPID PANEL W/ C HOL/HDL RATIO 2023-07-14 214790 HEMOGLOBIN A1C Laboratory Results Date LOINC Test Value Unit Reference Range Interpre tation 2023-07-14 2345-7 GLUCOSE 111 MG/DL 70-99 H 2023-07-14 3094-0 BUN 25 MG/DL 8-27 2023-07-14 2160-0 CREATININE 1.14 MG/DL 0.57-1.00 H 2023-07-14 54481-0 EGFR 53 ML/MIN/1.73 >59 L 2023-07-14 3097-3 BUN/CREATININE RATIO 22 12-2023-07-14 2951-2 SODIUM 142 MMOL/L 481-142 5387-01-25 2823-3 POTASSIUM 4.3 MMOL/L 3.5-5.2 2023-07-14 2075-0 CHLORIDE 100 MMOL/L 96-106 2023-07-14 2028-9 CARBON DIOXIDE, TOTAL 24 MMOL/L 20-2023-07-14 74739-6 CALCIUM 10.3 MG/DL 8.7-10.3 2023-07-14 2885-2 PROTEIN, TOTAL 7.7 G/DL 6.0-8.5 2023-07-14 1751-7 ALBUMIN 5 G/DL 3.9-4.9 H 2023-07-14 20589-9 GLOBULIN, TOTAL 2.7 G/DL 1.5-4.5 2023-07-14 1759-0 A/G RATIO 1.9 1.2-2.2 2023-07-14 1975-2 BILIRUBIN, TOTAL <0.2 MG/DL 0.0-1.2 2023-07-14 6768-6 ALKALINE PHOSPHATASE 79 IU/L 44-121 2023-07-14 1920-8 AST (SGOT) 24 IU/L 0-40 2023-07-14 1742-6 ALT (SGPT) 14 IU/L 0-32 2023-07-14 92487-2 TSH 2.21 UIU/ML 0.450-4.500 2023-07-14 6690-2 WBC 6.1 X10E3/UL 3.4-10.8 2023-07-14 789-8 RBC 4.31 X10E6/UL 3.77-5.28 2023-07-14 718-7 HEMOGLOBIN 12.6 G/DL 11.1-15.9 2023-07-14 4544-3 HEMATOCRIT 38.5 % 34.0-46.6 2023-07-14 787-2 MCV 89 FL 79-97 2023-07-14 785-6 MCH 29.2 PG 26.6-33.0 2023-07-14 786-4 MCHC 32.7 G/DL 31.5-35.7 2023-07-14 788-0 RDW 12.3 % 11.7-15.4 2023-07-14 777-3 PLATELETS 270 X10E3/UL 730-113 9406-01-25 770-8 NEUTROPHILS 52 % 2023-07-14 736-9 LYMPHS 31 % 2023-07-14 5905-5 MONOCYTES 10 % 2023-07-14 713-8 EOS 5 % 2023-07-14 706-2 BASOS 2 % 2023-07-14 751-8 NEUTROPHILS (ABSOLUTE) 3.1 X10E3/UL 1.4-7.0 2023-07-14 731-0 LYMPHS (ABSOLUTE) 1.9 X10E3/UL 0.7-3.1 2023-07-14 742-7 MONOCYTES(ABSOLUTE) .6 X10E3/UL 0.1-0.9 2023-07-14 711-2 EOS (ABSOLUTE) .3 X10E3/UL 0.0-0.4 2023-07-14 704-7 BASO (ABSOLUTE) .1 X10E3/UL 0.0-0.2 2023-07-14 23154-5 IMMATURE GRANULOCYTES 0 % 2023-07-14 29884-9 IMMATURE GRANS (ABS) 0 X10E3/UL 0.0-0.1 2023-07-142092-3 CHOLESTEROL, TOTAL 263 MG/DL 100-199 H 2023-07-14 2571-8 TRIGLYCERIDES 100 MG/DL 0-149 2023-07-145-9 HDL CHOLESTEROL 122 MG/DL >39 2023-07-14 44140-1 VLDL CHOLESTEROL BARI 16 MG/DL 5-40 2023-07-14 00626-8 LDL CHOL CALC ([facility]) 125 MG/DL 0-99 H 2023-07-14 9830-1 T CHOL/HDL RATIO 2.2 RATIO 0.0-4.4 2023-07-14 3848-4 HEMOGLOBIN A1C 6 % 4.8-5.6 H
--- OUTSIDE RECORDS SUMMARY | 2024-05-13 12:31 | XMS_ITS ---
Author Name Unknown Organization [facility] ALLERGIES AND ADVERSE REACTIONS No information ASSESSMENT No information CHIEF COMPLAINT No information Vital Signs Bpsitting Date Weight Height Spo2 Respiration Bmi Fieldcount [place] erecorded Pulse 128/80 01/19/20 23 137 5,4 null null 23.51 5 09:00:00 82 122/76 07/21/19 24 140 5,4 98 18 24.03 7 10:09:00 76 OBJECTIVE DATA No information PHYSICAL EXAMINATION No information TREATMENT PLAN No information PROBLEMS No information RESULTS No information REVIEW OF SYSTEMS No information SUBJECTIVE DATA No information MEDICATIONS No information
--- OUTSIDE RECORDS SUMMARY | 2024-05-13 12:31 | XMS_ITS ---
Laboratory report Created on: March 02, 2024 DAISHA FIELDS : 1955 Sex: Female Author Name STARLA DIETRICH [employer] Unknown PROBLEMS Problems List Code Description E03.9 RESULTS Laboratory Orders Date Order Code Test 2022-09-10 [id number] CMP14+CBC/D/PLT+ TSH 2022-09-10 [id number] THYROXINE (T4) F REE, DIRECT Laboratory Results Date LOINC Test Value Unit Reference Range Interpre tation 2022-09-10 2345-7 GLUCOSE 111 MG/DL 70-99 H 2022-09-10 3094-0 BUN 21 MG/DL 8-27 2022-09-10 2160-0 CREATININE 1.06 MG/DL 0.57-1.00 H 2022-09-10 41869-8 EGFR 58 ML/MIN/1.73 >59 L 2022-09-10 3097-3 BUN/CREATININE RATIO 20 -2022-09-10 2951-2 SODIUM 141 MMOL/L 022-012 1349-03-24 2823-3 POTASSIUM 4.6 MMOL/L 3.5-5.2 2022-09-10 2075-0 CHLORIDE 103 MMOL/L 96-106 2022-09-10 2028-9 CARBON DIOXIDE, TOTAL 27 MMOL/L -2022-09-10 45621-2 CALCIUM 9.7 MG/DL 8.7-10.3 2022-09-10 2885-2 PROTEIN, TOTAL 6.8 G/DL 6.0-8.5 2022-09-10 1751-7 ALBUMIN 4.4 G/DL 3.8-4.8 2022-09-10 43248-4 GLOBULIN, TOTAL 2.4 G/DL 1.5-4.5 2022-09-10 1759-0 A/G RATIO 1.8 1.2-2.2 2022-09-10 1975-2 BILIRUBIN, TOTAL <0.2 MG/DL 0.0-1.2 2022-09-10 6768-6 ALKALINE PHOSPHATASE 62 IU/L 44-121 2022-09-10 1920-8 AST (SGOT) 26 IU/L 0-40 2022-09-10 1742-6 ALT (SGPT) 17 IU/L 0-32 2022-09-10 23631-2 TSH 2.05 UIU/ML 0.450-4.500 2022-09-10 6690-2 WBC 6.2 X10E3/UL 3.4-10.8 2022-09-10 789-8 RBC 3.71 X10E6/UL 3.77-5.28 L 2022-09-10 718-7 HEMOGLOBIN 11.3 G/DL 11.1-15.9 2022-09-10 4544-3 HEMATOCRIT 33.5 % 34.0-46.6 L 2022-09-10 787-2 MCV 90 FL 79-97 2022-09-10 785-6 MCH 30.5 PG 26.6-33.0 2022-09-10 786-4 MCHC 33.7 G/DL 31.5-35.7 2022-09-10 788-0 RDW 12.7 % 11.7-15.4 2022-09-10 777-3 PLATELETS 260 X10E3/UL 681-861 7390-03-24 770-8 NEUTROPHILS 42 % 2022-09-10 736-9 LYMPHS 40 % 2022-09-10 5905-5 MONOCYTES 12 % 2022-09-10 713-8 EOS 5 % 2022-09-10 706-2 BASOS 1 % 2022-09-10 751-8 NEUTROPHILS (ABSOLUTE) 2.6 X10E3/UL 1.4-7.0 2022-09-10 731-0 LYMPHS (ABSOLUTE) 2.5 X10E3/UL 0.7-3.1 2022-09-10 742-7 MONOCYTES(ABSOLUTE) .7 X10E3/UL 0.1-0.9 2022-09-10 711-2 EOS (ABSOLUTE) .3 X10E3/UL 0.0-0.4 2022-09-10 704-7 BASO (ABSOLUTE) .1 X10E3/UL 0.0-0.2 2022-09-10 33998-1 IMMATURE GRANULOCYTES 0 % 2022-09-10 45062-5 IMMATURE GRANS (ABS) 0 X10E3/UL 0.0-0.1 2022-09-10 3024-7 T4,FREE(DIRECT) .94 NG/DL 0.82-1.77
--- OUTSIDE RECORDS SUMMARY | 2024-05-13 12:32 | XMS_ITS ---
Author Name Unknown Organization [facility] Address [address] [place] [address] Care Team Providers Care Field Captain Name Role Phone Davey RAYMOND, Mony Primary Care Provider Unavailab Gerson Lee Unavailable [phone] REASON FOR VISIT Disc Encounters Encounter Location Date Provider Diagnosis [facility] [address] [place] [address], [place] [address] 11/01/2023 Gerson Patel Plan Of Treatment No Information Progress Notes * Melanie FIELDSDOB:1955 (68 yo F)Acc No.[id number]:11/01/2023 Patient:?BRIANNAAlba JOSHIdy :1955???Age:68 Y???Sex:Female Address:[address], [place], [address] * true * Date:? 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
--- OUTSIDE RECORDS SUMMARY | 2024-05-13 12:32 | XMS_ITS | Patient Health Record ---
Author Name Unknown Organization [facility] Address [address] [place], [place] [address] Care Team Providers Care Genetic Coordinator Name Role Phone Davey RAYMOND, Mony Primary Care Provider Unavailab Brittni RAYMOND, Gerardo Unavailable [phone] Allergies Allergen (clinical drug ingredient) Drug/Non Drug Allergy documented on EMR Reaction Allergy Type Onset Date Status NSAIDs (uncoded) stomach upset Allergy Active sulfa (uncoded) hives Allergy Acti ve Reason For Referral No Information Medications Medication SIG (Take, Route, Frequency, Duration) Notes Start Date End Date Status Vitamin B12 2500 mcg 1 tab sublingually once a day Active venlafaxine 150 mg and 75 mg 1 tab each orally at bedtime Active melatonin 10 mg 1 cap orally once a day (at bedtime) Active lisinopril 2.5 mg 1 tab orally once a day Active simvastatin 40 mg 1 tab orally once a day (at bedtime) Active Nightime Sleepaid Ac tive folic acid 0.4 mg 1 tab orally once a day Active Co Q-10 100 mg 1 cap orally once a day Active traMADol 50 mg 1-2 tabs po orally Q 4-6H prn pain (max 6/day; hold within 4H of planned sleep) Active levothyroxine 50 mcg (0.05 mg) 1 tab orally once a day Acti ve Fosamax 70 mg 1 tab orally once a week Active Aspirin Low Dose 81 mg 1 tab orally once a day Active acetaminophen 500 mg 1-2 tabs orally jem ry 6 hours, as needed Active Social History Tobacco Use: Social History Observation Description Date Details (start date - stop date) Never Smoker NA - NA alcohol Question Answer Notes Did you have a drink containing alcohol in the p ast year? 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) use of opiate analgesic (Z79.891) Active confirmed Problem Sleep disorder (38023868) Other sleep disorders (G47.8) Active confirmed Problem Acquired spondylolisthesis (164813716) Spondylolisthe sis, cervical region (M43.12) Active confirmed Problem Cervical spondylosis without myelopathy (579539202) Spondylosis without myelopathy or radiculopathy, cervical region (M47.812) Active confirmed Problem Spinal stenosis in cervical region (60019237) Spinal stenosis, cervical region (M48.02) Active confirmed Problem Cervicalgia (74152988) Cervicalgia (M54.2) Active confirmed Problem Long-term current use of drug therapy (215031757) [facility] ([facility] drug therapy (Z79.899) Active confirmed Problem Myalgia (73159149) Myalgia of auxiliary muscles, head and neck (M79.12) Active confirmed Plan Of Treatment No Information Insurance Providers Payer Name Payer Address Payer Phone Subscriber Number Group Number Insured Name Patient Relationship to Insured Coverage Start Date Coverage End Date [employer] G[employer] [address] [address] [place] [address] [id number] Melanie Ko Self - patient is the insured Medical (General) History Medical History History ICD Code Spondylolysis of cervical spine Chronic neck pain Left hand and arm pain Osteoarthritis Osteoporosis Hypertension Hyperlipidemia GI bleed (PUD) Anxiety disorder and depression Thyroid problems Surgical History Surgery Date(Month/Year) Cataract surgery Abdominal (ulcer) surgery, p erformed at [facility] in [place], [place], 2010 Hospitalization History Reason Date(Month/Year) Unknown bleeding after caute rized ulcers, treated at [facility] in [place], [place], 2009
--- OUTSIDE RECORDS SUMMARY | 2024-05-13 12:32 | XMS_ITS ---
Author Name Unknown Organization [facility] Address [address] [place] [address] Care Team Providers Care Safety Grooving Machine Operator Name Role Phone Mony Mariscal MD Primary Care Provider Unavailab Gerson Lee Unavailable [phone] Allergies Allergen (clinical drug ingredient) Drug/Non Drug Allergy documented on EMR Reaction Allergy Type Onset Date Status Non-steroidal anti-inflammatory agent (FN) NSAIDs Unknown Drug Allergy Active REASON FOR VISIT 53455029, Abnormal chest CT Medications Medication SIG (Take, Route, Frequency, Duration) Notes Start Date End Date Status DULoxetine HCl 60 MG 1 capsule Orally On ce a day Active Levothyroxine Sodium 50 MCG 1 tablet in the morning on an empty stomach Orally Once a day Active Rosuvastatin Calcium 5 MG Oral for 90 Days Active Baclofen 20 MG 1 tablet Administer without regards to meals as needed Orally Twice a day Active Lisinopril 2.5 MG 1 tablet Orally Once a day Active Social History Tobacco Use: Social History Observation Description Date Details (start date - stop date) Former Smoker NA - NA Tobacco Control (Standard) Question Answer Notes Tobacco use: Former smoker How long has it been since you last smoked? Grea ter than 10 years Problems Problem Type SNOMED Code ICD Code Onset Dates Problem Status W/U Status Risk Notes Problem Radiology result abnormal (532204822) Abnormal chest CT (R93.89) Active confirmed Problem Tobacco user (119026228) Cigarette nicotine dependence in remission (F17.211) Active confirmed Vital Signs Temperature 97.1 degrees Fahrenheit 01/05/20 24 Blood pressure systolic 122 mm Hg 01/05/20 24 Blood pressure diastolic 74 mm Hg 024 Heart Rate 70 /min 01/05/2024 Respiratory Rate 18 /min 01/05/2024 Height 63 in 01/05/2024 Weight 132.06 lbs 01/05/2024 BMI 23.39 kg/m2 01/05/2024 Oximetry 96 % 01/05/2024 Height-cm 160.02 cm 01/05/2024 Weight-kg 59.9 kg 01/05/2024 Encounters Encounter Location Date Provider Diagnosis [facility] [address] [place] [address] [place] [address] 01/05/2024 Gerson Patel Abnormal chest CT R93.89 and Cigarette nicotine dependence in remission F17.211 Assessments Encounter Date Diagnosis (ICD Code) Assessment Notes Treatment Notes Treatment Clinical Notes 01/05/[address] (ICD-10 - R93.89) Appears to be scar tissue. There is no real recommendation to do any follow-up chest CT. 01/05/2024 Cigarette nicotine dependence in remission (ICD-10 - F17.211) Quit smoking at 51 years old. Smoked for 34 years. Smoked 10-15 cigarettes a day. Given the long duration of abstinence from cigarette smoking, she does not qualify for lung cancer screening 01/05/2024 Other I, Danette Davidson, am scribing for and in the presence of Dr. Gerson Patel. I, Dr. Gerson Patel, personally performed the services described in this documentation, as scribed by Danette Davidson in my presence, and is both accurate and complete. Plan Of Treatment Treatment Notes Assessment Notes Abnormal chest CT Appears to be scar t issue. There is no real recommendation to do any follow-up chest CT. Cigarette nicotine dependenc e in remission Quit smoking at 51 years old. Smoked for 34 years. Smoked 10-15 cigarettes a day. Given the long duration of abstinence from cigarette smoking, she does not qualify for lung cancer screening Next Appt Details Follow Up: prn, Reason: Progress Notes * DAISHA FIELDS RDOB: (68 yo F)Acc No.[id number]:01/05/2024 Progress Notes Patient:?DIAMOND DAISHA R Provider:?Gesron Patel MD :1955???Age:68 Y???Sex:Female D ate:01/05/2024 Address:[address] Pcp:Mony Mariscal MD Check In:10:26 AM CSTCheck Karson ut:11:06 AM HIGH CLIMBER Subjective: * Chief Complaints: * ???[id number] chest CT * HPI: ???::?The patient is a 68-year-old female referred for evaluation and management of abnormal chest CT findings.? I personally reviewed the chest images obtained in September 21, 2023 showing right apical scar tissue with no other abnormality notable in the lung parenchyma.? This is an incidental finding.? She has had no respiratory complaints of cough, chest pain, or shortness of breath. She was a previous smoker, smoking 10 to 15 cigarettes a day for 34 years before quitting at the age of 51. * ROS:?Review of systems of chart has been reviewed and scanned in by me. * Medical History:? * Surgical History:?Cauterize Ulcer 2013Rotaor cuff 2023 * Hospitalization/Major Diagno stic Procedure:?See Surgical HX * Family History:?Father: dece ased, congestive heart failure.?Mother: alive, heart.? * Social History:?Tobacco Use:?Tobacco Control (Standard)?Tobacco use:?Former smoker ?How long has it been since you last smoked??Greater than 10 years * Medications:?TakingRosuvasta tin Calcium 5 MG Tablet Oral Baclofen 20 MG Tablet 1 tablet Administer without regards to meals as needed Orally Twice a day DULoxetine HCl 60 MG Capsule Delayed Release Particles 1 capsule Orally Once a day Levothyroxine Sodium 50 MCG Tablet 1 tablet in the morning on an empty stomach Orally Once a day Lisinopril 2.5 MG Tablet 1 tablet Orally Once a day Medication List reviewed and reconciled with the patientTaking Rosuvastatin Calcium 5 MG Tablet Oral Taking Baclofen 20 MG Tablet 1 tablet Administer without regards to meals as needed Orally Twice a day Taking DULoxetine HCl 60 MG Capsule Delayed Release Particles 1 capsule Orally Once a day Taking Levothyroxine Sodium 50 MCG Tablet 1 tablet in the morning on an empty stomach Orally Once a day Taking Lisinopril 2.5 MG Tablet 1 tablet Orally Once a day Medication List reviewed and reconciled with the patient * Allergies:?NSAIDsno[Allergie s Verified] Objective: * Vitals:?Ht: 63 in, Wt:132.06 lbs, Wt-k.9 kg, BMI:23.39Index, Temp:97.1F, BP:122/74mm Hg, HR:70/min, RR:18/min, Oxygen sat %:96%, O2 Source: RA, Ht-cm: 160.02 cm. * Examination: ???General Examination: ?GENERAL APPEARANCE:?awake, not in respiratory distress.?EYES:?extraocular muscles intact.?EARS:?normal hearing.?SKIN:?warm and moist.?HEART:?no murmurs, rubs, gallops, no edema.?LUNGS:?clear to auscultation bilaterally, no crackles, no wheezing.?NEUROLOGIC:?alert, oriented.?PSYCH:?normal mood with appropriate affect.? Assessment: * Assessment: 1.?Abnormal chest CT - R93.8 9 (Primary)???2.?Cigarette nicotine dependence in remission - F17.211??? Plan: * Treatment: 2.?Cigarette nicotine depend ence in remission? Notes: Quit smoking at 51 years old. Smoked for 34 years. Smoked 10-15 cigarettes a day. Given the long duration of abstinence from cigarette smoking, she does not qualify for lung cancer screening?? 3.?Others? Clinical Notes: I, Danette Davidson, am scribing for and in the presence of Dr. Gerson Patel. I, Dr. Gerson Patel, personally performed the services described in this documentation, as scribed by Danette Davidson in my presence, and is both accurate and complete.?? * Procedure Codes:? * Follow Up:?prn Care Plan: * Problems:? * Billing Information: * Visit Code:? 63422 Office Visit, New Pt., Level 4. * Procedure Codes:? * Sign off status: Completed true * Provider:?Gerson Patel MD Date:?01/05/20 24 Generated for Salomon jiménez/José Miguel/Carmelita on:?05/13/2024 12:31 PM HIGH CLIMBER History and Physical Notes * Examination Category Sub-Category Detail Notes General Examination GENERAL APPEARANCE: awake, n ot in respiratory distress EYES: extraocular muscles intact EARS: normal hearing HEART: no murmurs, rubs, ga llops, no edema LUNGS: clear to auscultatio n bilaterally, no crackles, no wheezing NEUROLOGIC: alert, oriented SKIN: warm and moist PSYCH: normal mood with wicho ropriate affect
--- OUTSIDE RECORDS SUMMARY | 2024-05-13 12:32 | XMS_ITS | Patient Health Record ---
Author Name Unknown Organization [facility] Address [address] [place] [address] Care Team Providers Care Equipment Manager Name Role Phone Davey RAYMOND, Mony Primary Care Provider Unavailab le Gerson Patel Unavailable [phone] Allergies Allergen (clinical drug ingredient) Drug/Non Drug Allergy documented on EMR Reaction Allergy Type Onset Date Status Non-steroidal anti-inflammatory agent (FN) NSAIDs Unknown Drug Allergy Active Results Component Value Reference Range Notes zzzCT Outside CD Reviewed date:01/05/2024 12:25:31 PM Interpretation: Performing Lab: Notes/Report: [id number]&org=iSite zff=[id number] &org=iSit e Reason For Referral Reason Abn CT - 10/16: 1 wk per Amanda Scheduled 01/04 @ 10:30 AM Diagnosis 1 Abnormal findings on diagnostic imaging of lung (R91.8) Referring Provider First Name Mony Referring Provider Last Name Davey Referring Provider Speciality Internal M edicine Referred Organization [facility] Referred Provider Gerson Patel Referred Address [address] [place] [address] [address], [place],[address], Referred Provider Specialty Pulmonary Di seases General Notes Emily Newsome 024 01:17:28 PM [facility] 03:08:05 PM >1 wk per Jerod Patel Marie 10/18/2023 09:54:10 AM >10/17: Waiting on Jerod koch Marie 10/27/2023 09:07:12 AM >Patient is still recovering from shoulder surgery. Asked that I call back in a month., Emily Newsome 12/05/2023 12:38:23 PM >Scheduled 01/04 @ 10:30 AM Referral Priority Routine Medications Medication SIG (Take, Route, Frequency, Duration) [...] Status Risk Notes Problem Radiology result abnormal (907036244) Abnormal chest CT (R93.89) Active confirmed Problem Tobacco user (348403474) Cigarette nicotine dependence in remission (F17.211) Active confirmed Vital Signs Heart Rate 70 /min 01/05/2024 Temperature 97.1 degrees Fahrenheit 01/05/2024 Respiratory Rate 18 /min 01/05/2024 Blood pressure diastolic 74 mm Hg 01/05/2024 Oximetry 96 % 01/05/2024 Height-cm 160.02 cm 01/05/2024 Weight-kg 59.9 kg 01/05/2024 Height 63 in 01/05/2024 Blood pressure systolic 122 mm Hg 01/05/2024 Weight 132.06 lbs 01/05/2024 BMI 23.39 kg/m2 01/05/2024 Encounters Encounter Location Date Provider Diagnosis [facility] [address] [place] [address] [place] [address] 11/01/2023 Gerson Patel [facility] [address] [place] [address] [place] [address] 01/05/2024 Gerson Patel Abnormal chest CT R93.89 [...] both accurate and complete. Plan Of Treatment No Information Insurance Providers Payer Name Payer Address Payer Phone Subscriber Number Group Number Insured Name Patient Relationship to Insured Coverage Start Date Coverage End Date [employer] Medicare Replacement [address] [address] [place] [address] [id number] DAISHA FIELDS Self - patient is the insured Medical (General) History Medical History History ICD Code pneumonia arathritis anemia bladder infections blood plasma transfusion Surgical History Surgery Date(Month/Year) Cauterize Ulcer 2012 Rotaor cuff 2023 Hospitalization History Reason Date(Month/Year) See Surgical HX
--- NOTE | 2024-05-13 15:17 | P.PN_ITS ---
Subjective 2 Subjective: Patient was seen this morning, she is alert oriented to person, to place, not to time she follows commands, she is much more alert and awake, she understands that she is confused, she thinks it is from the UTI she does not that her family tells me that she has been confused for the last few months but she tells me that she has been doing okay,, denies any facial droop, no slurring of words, no focal weakness, Vitals/I&O/Wt Last Vital Signs Temp 98.3 F 05/13/24 15:14 Pulse 84 05/13/24 15:14 Resp 17 05/13/24 15:14 BP 151/78 05/13/24 15:14 Pulse Ox 92 05/13/24 15:14 O2 Del Method Room Air 05/13/24 15:14 05/13/24 05/13/24 05/13/24 06:59 14:59 22:59 Intake Total 1200 / 1560 1240 / 1240 Balance 1200 / 1160 1240 / 1240 Weight last 48 hrs Weight 56.608 kg Weight 56.472 kg Weight 56.699 kg Physical Exam 2 Const: COMMON NORMALS: no acute distress and patient oriented x3 Resp: COMMON NORMALS: normal respiratory effort, No retractions, No use of accessory muscles and clear to auscultation bilaterally AUSCULTATION: clear to auscultation bilaterally Cardio: COMMON NORMALS: regular rate, regular rhythm, S1 normal heart sound present and S2 normal heart sound present RATE: regular rate RHYTHM: r egular rhythm HEART SOUNDS: S1 normal heart sound present and S2 normal heart sound present GI: COMMON NORMALS: Normal to inspection, nondistended, normoactive bowel sounds present and non-tender Extremity: COMMON NORMALS: no pedal edema Neuro: COMMON NORMALS: patient oriented x3 Psych: COMMON NORMALS: mental status grossly normal Data 05/13/24 08:12 05/13/24 08:12 Micro: Microbiology 05/12/24 14:40 Blood Culture - Preliminary Blood NEGATIVE TO DATE 05/12/24 14:36 Blood Culture - Preliminary Blood NEGATIVE TO DATE 05/12/24 16:12 Urine Culture - Preliminary Urine,Clean Catch Gram Negative Rods A&P Assessment and plan (1) Altered mental status: Qualifiers: Altered mental status type: transient alteration of awareness Qualified Code(s): R40.4 - Transient alteration of awareness Plan Altered mental status -Component of UTI, continue Rocephin -Follow urine cultures -Follow blood cultures -TSH, ammonia levels, urine toxicology screen at -Complaints of abdominal pain CT scan abdomen pelvis -IV fluids, OVIDIO creatinine 1.7 -Neurochecks, no stroke scale, aspiration precautions -Monitor mentation closely -Full code -SCDs for DVT prophylaxis, history of GI bleed Spoke to patient, Attestations 2 Medical Necessity Statement*: Patient requires hospitalization for altered mental status, UTI Diagnoses Altered mental status R40.4 Altered mental status type: transient alteration of awareness
[2024-05-13] MEDS: cefTRIAXone 1,000 mg SDV 1000 MG IVP (17:00)
[2024-05-13] MEDS: pantoprazole 40 mg SDV IVP (21:05)
[2024-05-14 03:08] LABS: Basophils # 0.1 10^3/uL (0.0-0.1); Basophils % 1.1 %; Eosinophils # 0.2 10^3/uL (0.0-0.8); Eosinophils % 2.6 %; Hematocrit 34.9 % (36-47); Lymphocytes # 2.8 10^3/uL (0.8-4.8); Lymphocytes % 30.3 %; Mean Corpuscular HGB Conc 32.4 g/dL (30-55); Mean Corpuscular Hemoglobin 28.6 pg (27-33); Mean Corpuscular Volume 88.4 fl (85-98); Mean Platelet Volume 11.3 fL (7.4-10.4); Monocytes % 10.6 %; Neutrophils % 55.1 %; Nucleated Red Blood Cells % 0 %; Platelet Count 248 10^3/cmm (157-399); Red Blood Count 3.95 10^6/uL (3.85-5.65); Red Cell Distribution Width 13.2 % (12.1-15.1); White Blood Count 9.25 10^3/uL (3.29-11.43)
[2024-05-14 03:41] LABS: Alanine Aminotransferase 7 U/L (0-33); Albumin Level 3.8 g/dL (3.5-5.2); Alkaline Phosphatase 80 U/L (35-105); Anion Gap 15.2 (5-19); Aspartate Amino Transferase 15 U/L (0-32); Blood Urea Nitrogen 22 mg/dL (8-23); Calcium 9.6 mg/dL (8.5-10.5); Carbon Dioxide 27 mmol/L (22-29); Chloride 101 mmol/L (98-107); Creatinine Clr Calc Pharmacy 44.7977; Globulin 3.3 g/dL (1.3-4.6); Glomerular Filtration Rate 55.1 mL/min (90-130); Glucose 102 mg/dL (65-115); Magnesium 1.7 mg/dL (1.7-2.3); Osmolality Calculated 292 mOsm/kg (285-295); Phosphorus 2.9 mg/dL (2.5-4.5); Potassium 4.2 mmol/L (3.5-5.1); Sodium 139 mmol/L (136-145); Total Bilirubin 0.2 mg/dL (0.15-1.2); Total Protein 7.1 g/dL (6.6-8.7)
[2024-05-14 03:45] VITALS: BP 156/88; PULSE 78; RESP 16; TEMP 36.7; O2SAT 92
[2024-05-14 05:29] VITALS: PULSE 80
[2024-05-14] MEDS: levothyroxine 25 mcg Tablet 50 MCG PO (05:57)
[2024-05-14 08:00] VITALS: BP 168/95; PULSE 92; RESP 17; TEMP 36.7; O2SAT 94
[2024-05-14] MEDS: duloxetine 60 mg Capsule PO (09:08)
--- NOTE | 2024-05-14 09:47 | PC.CHAP ---
Pastoral Care Encounter/Spiritual Assessment Type of Contact [] Declined golf course keeper visit [] Patient/Family/Request visit [] Outpatient visit [] Follow-up visit [] Physician referral [] Code/Alert [x] Routine visit [] Staff referral [] Actively dying [] Patient sleeping [x] Family support [] [] Out of room [] Palliative care [] [] Receiving care in room [] Pre-surgical visit [] Trauma [] Long length of stay [] ICU visit [] Other: Relational/Emotional Strength [] Patient feels connected with others/family/visitors/staff [] Distress [] Loneliness/isolation [] Abandonment Spirituality of Patient [x] Person of Johanna [] Attends Jehovah'S Witness of their Johanna [x] Believes in Prayer [] Reads Bible or Muslim materials [] There are Spiritual issues to be addressed Drug Department Worker Interventions [x] Prayer [x] Active listening [] Non-anxious presence [] Spiritual/emotional support [] Crisis/trauma care [] Spiritual counseling [] Bereavement support [] Provided bereavement packet [x] Provided Bible/devotional materials [] Provided toy/stuffed animal, coloring book to patient or family member [] Provided Communion [] Anointing/[place] [] Salvation [x] Completed spiritual assessment [] Other: Impact on Illness or Injury [] Angry [] Fearful [] Anxious [] Often cries [] Exhaustion [] Unable to work [] Unable to attend druze [] Unable to walk/stand [] Unable to read [] Unable to drive [] Unable to eat/drink [] Unable to sleep [] Unable to be with family [] Patient intubated [] Other: Summary time spent with patient 15 min
--- NOTE | 2024-05-14 10:40 | PM.DCS ---
Discharge Providers Date of Admission: 05/12/24 17:06 Date of Discharge: May 14, 2024 Attending Provider at Admission: Chris Milton MD Attending Provider at Discharge: Chris Milton MD Primary Care Provider: Mony Mariscal MD Diagnoses at Discharge Discharge Diagnosis (1) Altered mental status: Status: Inactive Qualifiers: Altered mental status type: transient alteration of awareness Qualified Code(s): R40.4 - Transient alteration of awareness Reason for Visit Reason for Visit: [facility] Hospital Course Hospital Course Melanie Ko is a 69 year old female with a past medical history of hypertension, hyperlipidemia, GI bleed who presents [facility] for altered mental status. Currently patient is alert to person, not to place, not to time, she keeps telling me that she is confused and her family members are concerned that she is confused so she thinks that she needs to go to the hospital and keep confirming with her that she is in the ER when she keeps telling me that she needs to go to the hospital. When I asked her why she here, she tells me that she has been confused she has been having abdominal pain, nausea, denies any headache, blurry vision, no neck pain, no chest pain, does complain of right shoulder pain, she tells me that she required surgery for a rotator cuff tear by Dr. Ellis, in September, denies any lightheadedness, dizziness, no falls, she is able to walk without a walker, she lives at home with her who is at bedside, he tells me that she has been confused for the last few months, and some of her confusion has worsened, but is significantly profound now, he has to continually repeat questions for her, she reports a history of a GI bleed, with a gastric ulcer requiring EGD, she required significant amount of blood she tells me Patient was admitted to [facility] for altered mental status likely secondary to UTI, received IV antibiotics, overall clinically improved, will be discharged on cefdinir In terms of her mentation I do suspect she has a mild degree of dementia, she is alert oriented x 2, her responses do at times feel delayed, she does at times have short-term memory loss, forgetful at times, but she follows all commands, we will have her follow-up with neurology as outpatient for consideration MRI and further evaluation Physical Exam Const: COMMON NORMALS: no acute distress and patient oriented x3 Resp: COMMON NORMALS: normal respiratory effort, No retractions, No use of accessory muscles and clear to auscultation bilaterally AUSCULTATION: clear to auscultation bilaterally Cardio: COMMON NORMALS: regular rate, regular rhythm, S1 normal heart sound present and S2 normal heart sound present RATE: regular rate RHYTHM: regular rhythm HEART SOUNDS: S1 normal heart sound present and S2 normal heart sound present GI: COMMON NORMALS: Normal to inspection, nondistended, normoactive bowel sounds present and non-tender Extremity: COMMON NORMALS: no pedal edema Neuro: COMMON NORMALS: patient oriented x3 Psych: COMMON NORMALS: mental status grossly normal Discharge Data Studies Completed and Pending Completed Studies During Hospitalization Category Date Time Status CT abdomen pelvis wo con [id number] Stat Cat Scan 05/12/24 17:[address] head wo con* [id number] Stat Cat Scan 05/12/24 14:22 Completed XR chest 1V portable [id number] Stat Exams 05/12/24 15:03 Completed Pending at discharge Category Date Time Status Blood Culture Stat Lab 05/12/24 14:36 Results Complete Blood Count w/Auto AM LABS Lab 05/15/24 04:00 Ordered Comprehensive Metabolic Panel AM LABS Lab 05/15/24 04:00 Ordered Magnesium AM LABS Lab 05/15/24 04:00 Ordered Phosphorus AM LABS Lab 05/15/24 04:00 Ordered RPR with Reflex to Titer Routine Lab 05/12/24 14:36 Received Urine Culture Stat Lab 05/12/24 16:12 Results Radiology Impressions Head CT 05/12/24 14:22 IMPRESSION: 1. No acute intracranial abnormality. Chest X-Ray 05/12/24 15:03 IMPRESSION: 1. No acute cardiopulmonary abnormality. Abdomen/Pelvis CT 05/12/24 17:27 IMPRESSION: 1. No evidence of acute abnormality in the abdomen or pelvis within limitations of a noncontrast exam. 2. Possible cystitis. 3. Wall thickening of the sigmoid colon, possibly secondary to prior bouts of diverticulitis. Consider correlation with follow-up colonoscopy to exclude an underlying mucosal lesion. Laboratory Results WBC 9.25 10^3/uL (3.29-11.43) 05/14/24 02:39 RBC 3.95 10^6/uL (3.85-5.65) 05/14/24 02:39 Hgb 11.30 g/dL (11.27-16.99) 05/14/24 02:39 Hct 34.9 % (36-47) L 05/14/24 02:39 MCV 88.4 fl (85-98) 05/14/24 02:39 MCH 28.6 pg (27-33) 05/14/24 02:39 MCHC 32.4 g/dL (30-55) 05/14/24 02:39 RDW 13.2 % (12.1-15.1) 05/14/24 02:39 Plt Count 248 10^3/cmm (157-399) 05/14/24 02:39 MPV 11.3 fL (7.4-10.4) H 05/14/24 02:39 Neut % (Auto) 55.1 % 05/14/24 02:39 Lymph % (Auto) 30.3 % 05/14/24 02:39 [place] % (Auto) 10.6 % 05/14/24 02:39 Eos % (Auto) 2.6 % 05/14/24 02:39 Baso % (Auto) 1.1 % 05/14/24 02:39 Neut # (Auto) 5.10 10^3/uL (1.8-7.7) 05/14/24 02:39 Lymph # (Auto) 2.8 10^3/uL (0.8-4.8) 05/14/24 02:39 [place] # (Auto) 1.0 10^3/uL (0.2-0.9) H 05/14/24 02:39 Eos # (Auto) 0.2 10^3/uL (0.0-0.8) 05/14/24 02:39 Baso # (Auto) 0.1 10^3/uL (0.0-0.1) 05/14/24 02:39 Nucleated RBC % (auto) 0 % 05/14/24 02:39 Nucleated RBCs # 0.0 /100WBC 05/14/24 02:39 ESR 44 mm/hr (0-15) H 05/12/24 14:36 Sodium 139 mmol/L (136-145) 05/14/24 02:39 Potassium 4.2 mmol/L (3.5-5.1) 05/14/24 02:39 Chloride 101 mmol/L (98-107) 05/14/24 02:39 Carbon Dioxide 27 mmol/L (22-29) 05/14/24 02:39 Anion Gap 15.2 (5-19) 05/14/24 02:39 BUN 22 mg/dL (8-23) 05/14/24 02:39 Creatinine 1.0 mg/dL (0.5-0.9) H 05/14/24 02:39 GFR Calculation 55.1 mL/min (90-130) L 05/14/24 02:39 Glucose 102 mg/dL (65-115) 05/14/24 02:39 Estimat Average Glucose 114 05/12/24 14:36 Hemoglobin A1c 5.6 % (4.0-6.0) 05/12/24 14:36 Calculated Osmolality 292 mOsm/kg (285-295) 05/14/24 02:39 Calcium 9.6 mg/dL (8.5-10.5) 05/14/24 02:39 Phosphorus 2.9 mg/dL (2.5-4.5) 05/14/24 02:39 Magnesium 1.7 mg/dL (1.7-2.3) 05/14/24 02:39 Total Bilirubin 0.2 mg/dL (0.15-1.2) 05/14/24 02:39 AST 15 U/L (0-32) 05/14/24 02:39 ALT 7 U/L (0-33) 05/14/24 02:39 Alkaline Phosphatase 80 U/L (35-105) 05/14/24 02:39 Ammonia 10 umol/L (11-51) L 05/12/24 17:40 Creatine Kinase 47 U/L (26-192) 05/12/24 14:36 Troponin T Baseline 14 ng/L (0-10) H 05/12/24 14:36 Troponin T 120 Minute 14.08 ng/L (0-10) H 05/12/24 16:33 Delta Troponin T 0.08 ABS# (0-10) 05/12/24 16:33 Troponin T Hi Sens 6Hr 15.75 ng/L (0-10) H 05/12/24 20:34 Troponin T Hi Sens 6Hr Delta 1.75 ng/L (0-12) 05/12/24 20:34 C-Reactive Protein 6.6 mg/L (0.0-4.9) H 05/12/24 14:36 NT-Pro-B Natriuret Pep 68 pg/mL (0-125) 05/12/24 14:36 Total Protein 7.1 g/dL (6.6-8.7) 05/14/24 02:39 Albumin 3.8 g/dL (3.5-5.2) 05/14/24 02:39 Globulin 3.3 g/dL (1.3-4.6) 05/14/24 02:39 Triglycerides 107 mg/dL (0-150) 05/12/24 14:36 Cholesterol 221 mg/dL (0-200) H 05/12/24 14:36 LDL Cholesterol, Calc 109 mg/dL (50-129) 05/12/24 14:36 HDL Cholesterol 91 mg/dL (60-100) 05/12/24 14:36 LDL/HDL Ratio 1.20 RATIO (0.00-3.22) 05/12/24 14:36 Cholesterol/HDL Ratio 2.43 mg/dL (0.0-4.40) 05/12/24 14:36 Procalcitonin 0.13 ng/mL (0-0.5) 05/12/24 14:36 TSH 1.41 uIU/mL (0.27-4.20) 05/12/24 14:36 Urine Color Yellow (Yellow) 05/12/24 16:12 Urine Appearance Cloudy (CLEAR) A 05/12/24 16:12 Urine pH Not Reportable 05/12/24 16:12 Ur Specific [place] Not Reportable 05/12/24 16:12 Urine Protein Not Reportable 05/12/24 16:12 Urine Glucose (UA) Not Reportable 05/12/24 16:12 Urine Ketones Not Reportable 05/12/24 16:12 Urine Blood Not Reportable 05/12/24 16:12 Urine Nitrate Not Reportable 05/12/24 16:12 Urine Bilirubin Not Reportable 05/12/24 16:12 Urine Urobilinogen Not Reportable 05/12/24 16:12 Ur Leukocyte Esterase Not Reportable 05/12/24 16:12 Urine RBC 0-4 /hpf (0-2) H 05/12/24 16:12 Urine WBC 55-80 /hpf (0-5) H 05/12/24 16:12 Ur Squamous Epith Cells 5-10 /hpf (0-5) H 05/12/24 16:12 Amorphous Sediment Not Reportable 05/12/24 16:12 Urine Bacteria 2+ /hpf (NONE) H 05/12/24 16:12 Coronavirus (PCR) Negative (Negative) 05/12/24 16:04 Influenza A (PCR) Negative (Negative) 05/12/24 16:04 Influenza Type B (PCR) Negative (Negative) 05/12/24 16:04 RSV (PCR) Negative (Negative) 05/12/24 16:04 Vitals Last Vital Signs Temp 98.1 F 05/14/24 08:00 Pulse 92 05/14/24 08:00 Resp 17 05/14/24 08:00 BP 168/95 05/14/24 08:00 Pulse Ox 94 05/14/24 08:00 O2 Del Method Room Air 05/14/24 08:00 Discharge Plan Discharge Patient Disposition: Home Condition: Stable Prescriptions: New cefdinir 300 mg capsule 300 mg PO BID 5 Days Qty: 10 0RF Continued lisinopril 2.5 mg tablet 2.5 mg PO DAILY levothyroxine [Euthyrox] 25 mcg tablet 50 mcg PO DAILY duloxetine 60 mg capsule,delayed release(DR/EC) 60 mg PO DAILY baclofen 20 mg tablet 20 mg PO DAILY PRN (Reason: Pain) rosuvastatin [Crestor] 5 mg tablet 5 mg PO 1XD calcium carbonate-vitamin D3 600 mg-10 mcg (400 unit) tablet 600 tab PO DAILY Discharge Orders: Discharge Order (Routine); Ordered 05/14/24 Ordered By: Chris Milton Referrals: Mony Mariscal MD [Primary Care Provider] - Austin Stevens MD [Physician] - 2 weeks Discharge Diet: Cardiac Discharge Activity: Resume usual activity Patient Instructions: Altered Mental Status (ED), Opioid Safety Activity Restrictions/Additional Instructions: - Please follow-up with neurology in 2 weeks -If you have any further confusion please go to the emergency room ? Follow-up with primary care in 1 week Discharge Attestations Time Spent in Discharge Care*: greater than 30 min Quality Metrics Clinical Quality Measures [ No reported AMI, CVA or VTE this stay] Coding Level of Care Code 22479 Total time (in minutes) for Discharge: 45 Diagnoses Altered mental status R40.4 Altered mental status type: transient alteration of awareness
--- NOTE | 2024-05-14 10:55 | PC.SOCIAL ---
IMM Updated Updated pt on IMM. No questions voiced. Provided pt a copy. Initialed, dated, & timed a copy & placed in chart.
[2024-05-14 12:51] VITALS: BP 168/95; PULSE 92; RESP 17; TEMP 36.7; O2SAT 94
[2024-05-15 12:30] LABS: RPR w(Moniotor) w/REFL Titer NON-REACTIVE (NON-REACTIVE)
== END 2024-05-14 12:44 | disposition home or self-care (01) | DRG 690 ==
LOC: ER 17:14 → MEDSURG 18:49
PROVIDERS: Admitting Provider Family Medicine; Emergency Provider Family Medicine; PCP Internal Medicine; Visit Provider Family Medicine
DX: N39.0 Urinary tract infection, site not specified (principal); R41.82 Altered mental status, unspecified; I10 Essential (primary) hypertension; E78.5 Hyperlipidemia, unspecified; M25.511 Pain in right shoulder; Z79.891 Long term (current) use of opiate analgesic; I25.10 Atherosclerotic heart disease of native coronary artery without angina pectoris; Z87.891 Personal history of nicotine dependence; F03.A0 Unspecified dementia, mild, without behavioral disturbance, psychotic disturbance, mood disturbance, and anxiety
CPT/HCPCS: 0241U; 36415; 70450; 71045; 74176; 80053; 80061; 82140; 82550; 83036; 83735; 83880; 84100; 84145; 84443; 84484; 85025; 85651; 86140; 86592; 87040; 87077; 87086; 87186; 93005; 94664; 96374; 97161; 97165; 99285; J0696; J2470; J7030

== ENCOUNTER → 2024-07-30 09:47 | Outpatient (BNVA) | payer MEDICARE, SELFPAY | PROVIDERS: PCP Internal Medicine; Referring Provider Internal Medicine; Visit Provider Psychiatry & Neurology Neurology | DX: R40.4 Transient alteration of awareness (principal) | CPT/HCPCS: 99203 ==

== ENCOUNTER 2024-08-14 13:17 | Outpatient (CLI) | payer MEDICARE, SELFPAY ==
--- NOTE | 2024-08-14 13:45 | MR_ITS ---
WS: [id number] MRI BRAIN WITH AND WITHOUT CONTRAST HISTORY: R41.82 - Altered mental status, unspecified COMPARISON: CT head 05/12/2024 TECHNIQUE: Multiplanar imaging performed through the brain with MultiHance 11 ml's IV. No acute infarcts are seen. Carrizales-white matter differentiation is well preserved. Moderate T2 and FLAIR signal hyperintensities throughout the white matter. Symmetric white matter disease involves the frontal, temporal and parietal lobes. There is additional bilateral ischemic disease in the andres. Minimal hippocampal atrophy. No susceptibility artifact. Prior lacunar in the LEFT thalamus. Ventricles and extra-axial spaces are normal. Clivus and pituitary gland are normal. Visualized posterior fossa and brainstem are also normal. Postcontrast images are negative for masses or vascular malformations. Dural venous sinuses are normal. Paranasal sinuses: Mucous retention cyst in the LEFT maxillary sinus. Mastoid air cells: Normal. Calvarium and scalp: Normal. MR/MR head wo/w con [id number] IMPRESSION: 1. No acute intracranial hemorrhage or edema. No acute infarct. 2. No metastatic disease or enhancing mass. 3. Chronic white matter disease more than expected for a patient of this age. 4. Additional small vessel disease bilaterally in the andres and remote LEFT aliya lamic lacunar infarct. 5. Mild hippocampal atrophy.
[2024-08-14] MEDS: gadobenate dimeglumine 20 mL vial 11 ML IV (14:07)
== END 2024-08-14 13:18 | disposition home or self-care (01) ==
PROVIDERS: PCP Internal Medicine; Visit Provider Psychiatry & Neurology Neurology
DX: R41.82 Altered mental status, unspecified (principal); R20.0 Anesthesia of skin; R20.2 Paresthesia of skin; M47.812 Spondylosis without myelopathy or radiculopathy, cervical region; R93.0 Abnormal findings on diagnostic imaging of skull and head, not elsewhere classified; G31.89 Other specified degenerative diseases of nervous system; I67.82 Cerebral ischemia
CPT/HCPCS: 70553

== ENCOUNTER 2024-08-16 08:14 | Outpatient (CLI) | payer MEDICARE, SELFPAY ==
--- NOTE | 2024-08-16 08:30 | USCV_ITS ---
Melanie Ko Age: 69 Gender: F : 1955 Exam Date: 08/16/2024 08:24 Ordering Phys: Austin Stevens MD Technologist: [employer] [place]am [place] [facility] [place]: Memory Loss Risk Factors: Previous Vascular Surgery: Right Brachial BP: / Left Brachial BP: / Right Left Velocity (cm/s) Spectral Plaque Velocity (cm/s) Spectral Plaque Syst/Diast Broadening Syst/Diast Broadening 50.00/ 11.90 Prox CCA 68.00 / 17.30 58.70/ 17.10 Mid CCA 49.00 / 15.80 56.20/ 18.60 Distal CCA 45.80 / 16.30 40.90/ 12.60 Prox ICA 53.30 / 15.80 40.90/ 11.20 Mid ICA 59.60 / 19.80 62.20/ 21.10 Distal ICA 70.70 / 26.80 66.70 ECA 51.10 0.70 ICA/CCA 1.20 Antegrade Vertebral Antegrade 37.60/ 5.70 cm/s 20.10/ 6.60 cm/s Tri Subclavian Tri 76.70 145.2 0 CONCLUSIONS Right ICA stenosis <50%. Mild atheromatous plaque right carotid bulb/ICA. Left ICA stenosis <50%. Mild atheromatous plaque left carotid bulb/ICA. Intimal thickening in the common carotid arteries and internal carotid arteries bilaterally. Normal antegrade Doppler flow noted in the right vertebral artery. Normal antegrade Doppler flow noted in the left vertebral artery. Keith Vinson MD (Electronically Signed) Final Date: 17 August 2024 09:52 S
== END 2024-08-16 08:15 | disposition home or self-care (01) ==
LOC: RAD 08:15
PROVIDERS: PCP Internal Medicine; Visit Provider Psychiatry & Neurology Neurology
DX: R26.89 Other abnormalities of gait and mobility (principal); R20.0 Anesthesia of skin; R20.2 Paresthesia of skin; R41.82 Altered mental status, unspecified; M47.812 Spondylosis without myelopathy or radiculopathy, cervical region; I65.23 Occlusion and stenosis of bilateral carotid arteries; R93.89 Abnormal findings on diagnostic imaging of other specified body structures
CPT/HCPCS: 93880

== ENCOUNTER 2024-10-03 11:32 | Outpatient (CLI) | payer MEDICARE, SELFPAY ==
--- NOTE | 2024-10-03 11:37 | MM_ITS ---
WS: [id number] Bilateral screening 3D tomosynthesis digital mammogram, 10/03/2024 11:38 AM Clinical Data: SCREENING Comparison: 10/03/2023, 09/24/2022, 09/15/2021, 06/25/2020, 06/19/2019, 05/03/2018, 04/21/2017. Findings: No spiculated masses or clustered calcifications are seen. There are no secondary signs of carcinoma. There are scattered benign calcifications in both breasts. There are vascular calcifications. MM/MM [facility] tomosynthesis [id number] Impression: Negative bilateral mammogram unchanged. Recommend annual screening mammograms. BIRADS: 1 - Negative FOLLOW UP: 1 Month Follow-up DENSITY: The breasts are extremely dense, which lowers the sensitivity of mammo graphy. The CAD wrap checker was used
== END 2024-10-03 11:33 | disposition home or self-care (01) ==
PROVIDERS: PCP Internal Medicine; Visit Provider Internal Medicine
DX: Z12.31 Encounter for screening mammogram for malignant neoplasm of breast (principal); R92.343 Mammographic extreme density, bilateral breasts; R92.1 Mammographic calcification found on diagnostic imaging of breast
CPT/HCPCS: 77063; 77067

== ENCOUNTER → 2024-10-05 11:24 | Outpatient (BNVA) | payer MEDICARE, SELFPAY | PROVIDERS: PCP Internal Medicine; Referring Provider Psychiatry & Neurology Neurology; Visit Provider Psychiatry & Neurology Neurology | DX: R40.4 Transient alteration of awareness (principal) | CPT/HCPCS: 95813 ==

== ENCOUNTER → 2024-10-29 14:05 | Outpatient (BNVA) | payer MEDICARE, SELFPAY | PROVIDERS: PCP Internal Medicine; Visit Provider Psychiatry & Neurology Neurology | DX: R40.4 Transient alteration of awareness (principal) | CPT/HCPCS: 99212 ==

== ENCOUNTER 2025-03-03 09:02 | Emergency (ER) | payer MEDICARE, SELFPAY ==
[2025-03-03 09:03] VITALS: BP 179/80; PULSE 76; RESP 18; TEMP 35.7; O2SAT 98
--- OUTSIDE RECORDS SUMMARY | 2025-03-03 09:08 | XMS_ITS ---
Laboratory report Created on: February 28, 2025 DAISHA FIELDS : 1955 Sex: Female Author Name STARLA DIETRICH Going Unknown PROBLEMS Problems List Code Description I10 RESULTS Laboratory Orders Date Order Code Test 2025-02-25 [id number] CBC WITH DIFFERE NTIAL/PLATELET 2025-02-25 [id number] BASIC METABOLIC PANEL (8) Laboratory Results Date LOINC Test Value Unit Reference Range Interpre tation 2025-02-25 6690-2 WBC 15.1 X10E3/UL 3.4-10.8 H 2025-02-25 789-8 RBC 4.24 X10E6/UL 3.77-5.28 2025-02-25 718-7 HEMOGLOBIN 12.1 G/DL 11.1-15.9 2025-02-25 4544-3 HEMATOCRIT 37.6 % 34.0-46.6 2025-02-25 787-2 MCV 89 FL 79-97 2025-02-25 785-6 MCH 28.5 PG 26.6-33.0 2025-02-25 786-4 MCHC 32.2 G/DL 31.5-35.7 2025-02-25 788-0 RDW 13.7 % 11.7-15.4 2025-02-25 777-3 PLATELETS 387 X10E3/UL 632-751 8945-09-08 770-8 NEUTROPHILS 77 % 2025-02-25 736-9 LYMPHS 13 % 2025-02-25 5905-5 MONOCYTES 7 % 2025-02-25 713-8 EOS 1 % 2025-02-25 706-2 BASOS 1 % 2025-02-25 751-8 NEUTROPHILS (ABSOLUTE) 11.8 X10E3/UL 1.4-7.0 H 2025-02-25 731-0 LYMPHS (ABSOLUTE) 1.9 X10E3/UL 0.7-3.1 2025-02-25 742-7 MONOCYTES(ABSOLUTE) 1 X10E3/UL 0.1-0.9 H 2025-02-25 711-2 EOS (ABSOLUTE) .2 X10E3/UL 0.0-0.4 2025-02-25 704-7 BASO (ABSOLUTE) .1 X10E3/UL 0.0-0.2 2025-02-25 09589-9 IMMATURE GRANULOCYTES 1 % 2025-02-25 92786-6 IMMATURE GRANS (ABS) .1 X10E3/UL 0.0-0.1 2025-02-25 2345-7 GLUCOSE 109 MG/DL 70-99 H 2025-02-25 3094-0 BUN 16 MG/DL 8-27 2025-02-25 2160-0 CREATININE 1.07 MG/DL 0.57-1.00 H 2025-02-25 95285-4 EGFR 57 ML/MIN/1.73 >59 L 2025-02-25 3097-3 BUN/CREATININE RATIO 15 12-2025-02-25 2951-2 SODIUM 139 MMOL/L 137-482 5352-09-08 2823-3 POTASSIUM 4.5 MMOL/L 3.5-5.2 2025-02-25 2075-0 CHLORIDE 96 MMOL/L 96-106 2025-02-25 2028-9 CARBON DIOXIDE, TOTAL 26 MMOL/L 20-2025-02-25 02657-1 CALCIUM 10.5 MG/DL 8.7-10.3 H
--- OUTSIDE RECORDS SUMMARY | 2025-03-03 09:08 | XMS_ITS ---
Laboratory report Created on: March 01, 2025 DAISHA FIELDS : 1955 Sex: Female Author Name STARLA DIETRICH Organization Unknown PROBLEMS Problems List Code Description I10 R91.8 RESULTS Laboratory Orders Date Order Code Test 2025-02-25 [id number] B-TYPE NATRIURET IC PEPTIDE Laboratory Results Date LOINC Test Value Unit Reference Range Interpre tation 2025-02-25 80329-6 B-TYPE NATRIURET IC PEPTIDE 65.2 PG/ML 0.0-100.0
--- OUTSIDE RECORDS SUMMARY | 2025-03-03 09:08 | XMS_ITS | Patient Health Record ---
Author Organization [facility] Address [address] [place] [address] Care Team Providers Care Bench Mechanic Name Role Phone DR. Mony Mariscal Primary Care Provider Gerson Menchaca Unavailable [phone] Allergies Allergen (clinical drug ingredient) Drug/Non Drug Allergy documented on EMR Reaction Allergy Type Onset Date Status Non-steroidal anti-inflammatory agent (FN) NSAIDs Unknown Drug Allergy Active Reason For Referral No Information Medications Medication SIG (Take, Route, Frequency, Duration) Notes Start Date End Date Status DULoxetine HCl 60 MG Capsule Delayed Release Particles 1 capsule Orally Once a day Active Levothyroxine Sodium 50 MCG Tablet 1 tablet in the morning on an empty stomach Orally Once a day Active Rosuvastatin Calcium 5 MG Tablet Oral; Duration: 90 Days Acti ve Baclofen 20 MG Tablet 1 tablet Administe r without regards to meals as needed Orally Twice a day Active Lisinopril 2.5 MG Tablet 1 tablet Orally Once a day Active Social History Tobacco Use: Social History Observation Description Date Details (start date - stop date) Former Smoker NA - NA Social History Tobacco Use: Social Info Question Answer Notes Tobacco Control (Standard) Tobacco use: Former smoker How long has it been since you last smoked? 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) Active confirmed Plan Of Treatment No Information Insurance Providers Payer Name Payer Address Payer Phone Subscriber Number Group Number Insured Name Patient Relationship to Insured Coverage Start Date Coverage End Date [employer] Medicare Replacement [address] [address] [place] [address] [id number] DAISHA FIELDS Self - patient is the insured Medical (General) History Medical History History ICD Code pneumonia arathritis anemia bladder infections blood plasma transfusion Surgical History Surgery Date(Month/Year) Cauterize Ulcer 2012 Rotaor cuff 2023 Hospitalization History Reason Date(Month/Year) See Surgical HX
--- NOTE | 2025-03-03 09:12 | ECG_ITS ---
[facility] 2025[facility]03 Pat Name: Melanie Ko Department: Room: Gender: Female Phd Internship: : 1955 Requested By: Cain Null Order Number: [id number] Jorgensen MD: Niall Cardona M.D. Measurements Intervals [place] Rate: 75 P: 76 [place]: 174 QRS: 64 QRSD: 92 T: 70 QT: 382 QTc: 428 Interpretive Statements SINUS RHYTHM Compared to ECG 05/12/2024 20:43:24 No significant changes Electronically Signed On 03-03-2025 20:27:58 CDT by Niall Cardona M.D. [email or web address]
--- NOTE | 2025-03-03 09:14 | XRR_ITS ---
PROCEDURE INFORMATION: Exam: XR Chest Exam date and time: 03/03/2025 9:22 AM Age: 69 years old Clinical indication: Other: AMS TECHNIQUE: Imaging protocol: Radiologic exam of the chest. Views: 1 view. COMPARISON: CR (CHEST, ) 05/12/2024 3:04 PM FINDINGS: Lungs: Unremarkable. No consolidation. Pleural spaces: No pneumothorax. Heart/Mediastinum: Unremarkable. No cardiomegaly. Bones/joints: Unremarkable. XR/XR chest 1V portable [id number] IMPRESSION: No acute findings.
--- NOTE | 2025-03-03 09:17 | XRR_ITS ---
PROCEDURE INFORMATION: Exam: XR Abdomen Exam date and time: 03/03/2025 9:22 AM Age: 69 years old Clinical indication: Constipation TECHNIQUE: Imaging protocol: Radiologic exam of the abdomen. Views: Frontal supine view of the abdomen. 1 View. COMPARISON: CT abdomen pelvis con [id number] 05/12/2024 6:03 PM FINDINGS: Gastrointestinal tract: Questionable pneumatosis intestinalis involving the descending colon. No overly distended small bowel loop. Bones/joints: Degenerative changes at lower lumbar spine. XR/XR abdomen 1V* [id number] IMPRESSION: Questionable pneumatosis intestinalis involving the descending colon. Ischemic bowel can not be excluded. CT scan for further evaluation is advised.
[2025-03-03 09:21] LABS: Hematocrit 34.1 % (36-47); Hemoglobin 10.60 g/dL (11.27-16.99); Mean Corpuscular HGB Conc 31.1 g/dL (30-55); Mean Corpuscular Hemoglobin 27.5 pg (27-33); Mean Corpuscular Volume 88.3 fl (85-98); Nucleated Red Blood Cells % 0 %; Platelet Count 446 10^3/cmm (157-399); Red Blood Count 3.86 10^6/uL (3.85-5.65); White Blood Count 6.79 10^3/uL (3.29-11.43)
--- NOTE | 2025-03-03 09:21 | ED_ITS ---
HPI - Altered Mental Status 2 General: Chief Complaint: Altered Mental Status Stated Complaint: ams Time Seen by Provider: 03/03/25 09:03 Source: family and EMS Mode of arrival: EMS Limitations: no limitations History of Present Illness: Patient is a 69-year-old female with past medical history of coronary artery disease, hypertension, and previous opiate abuse who presents to the emergency department by ambulance due to altered mental status. EMS reports that they were called for constipation and altered mental status by , patient was found seated on the toilet and hunched over. There is reports that she potentially might have been overdosing on tramadol, as this was found nearby. Patient unable to provide any history, but did respond well to 1 mg of Narcan given prehospital. Initially was found with pinpoint pupils as well, and found to be hypoxic so placed on 2 to 3 L which has brought her O2 sats up. At this time is still unable to provide any history as she is slow to respond but is reportedly more alert than when she was found. Had recently been complaining of some abdominal pain secondary to constipation. I spoke to the patient's in the waiting room, he states that she had not demonstrated any focal neurological deficit or facial droop or slurred speech recently, and that she has just seemingly been off and also questions possible drug abuse. He states that she used to be on a medication to help her come off of opiates. Hypertensive at this time, rest of her vitals are stable. 98% SpO2 on room air. MD complaint: altered mental status Onset (ago): hour(s) Timing confirmed by: spouse Severity: similar to previous episodes Context: drug abuse and history of similar presentation Related Data Home Medications ?Medication ?Instructions ?Recorded ?Confirmed lisinopril 2.5 mg tablet 2.5 mg PO DAILY 05/08/2006/13 duloxetine 60 mg capsule,delayed 60 mg PO DAILY 10/29/24 release baclofen 20 mg tablet 20 mg PO DAILY PRN Pain 10/1910/29/24 rosuvastatin 5 mg tablet (Crestor) 5 mg PO 1XD 4 10/29/24 calcium 600 mg (as 600 tab PO DAILY 05/12/24 carbonate)-vitamin D3 10 mcg (400 unit) tablet levothyroxine 50 mcg tablet 50 mcg PO ONCE 07/30/24 trazodone 50 mg tablet 50 mg PO 07/30/24 10/29/24 Allergies Allergy/AdvReac Type Severity Reaction Status Date / Time NSAIDS (Non-Steroidal Allergy Intermediate HISTORY OF Verified 03/03/25 09:10 Anti-Inflamma BLEEDING ULCER Review of Systems 2 General: Reports: ROS unobtainable due to mental status PFSH ED 2 PFSH: Medical History History of hypertension Coronary artery disease Surgical History H/O shoulder surgery Social History Smoking and tobacco/nicotine status: former use of tobacco/nicotine Quit status (tobacco/nicotine): has quit using Second hand smoke exposure: No Alcohol intake: never Substance/Drug Use: never Lives independently: Yes Household members: spouse Marital status: Highest education level completed: High School Graduate Special andreina needs: No Physical Exam 2 Const: COMMON NORMALS: average body habitus EXAM LIMITATIONS: altered mental status OTHER: Responds to painful stimuli, responds to verbal cues but states she does not know her birthday or where she is HENMT: COMMON NORMALS: normocephalic and atraumatic HEAD & SCALP: n ormocephalic and atraumatic Eye: COMMON NORMALS: conjunctivae normal CONJUNCTIVA: Yes conjunctivae normal OTHER: Pupils are equally reactive, sluggish Neck/C-Spine: COMMON NORMALS: full ROM, supple and no meningeal signs Chest: COMMONS NORMALS: normal inspection of the chest and normal palpation of entire chest wall Resp: COMMON NORMALS: normal respiratory effort, No retractions, No use of accessory muscles and clear to auscultation bilaterally AUSCULTATION: clear to auscultation bilaterally Cardio: COMMON NORMALS: regular rate, regular rhythm, S1 normal heart sound present and S2 normal heart sound present RATE: regular rate RHYTHM: r egular rhythm HEART SOUNDS: S1 normal heart sound present and S2 normal heart sound present GI: COMMON NORMALS: Normal to inspection, nondistended, normoactive bowel sounds present and Soft to palpation PALPATION: Yes Soft to palpation and Yes Tenderness to palpation present (GI) (Diffuse tender to palpation) Extremity: COMMON NORMALS: normal to inspection, full ROM and capillary refill normal Neuro: COMMON NORMALS: moves all extremities, no focal motor deficits and no sensory deficits noted MENINGEAL SIGNS: Yes no meningeal signs SPEECH: s peech normal GAIT: Yes Unable to assess gait OTHER: Patient does not demonstrate any facial droop or obvious focal neurological deficit, does not participate in examination Skin: COMMON NORMALS: no rashes or lesions noted GENERAL SKIN EXAM: no rashes or lesions noted Course 2 Vital Signs: Vital signs: Vital Signs Temperature 96.3 F L 03/03/25 09:03 Pulse Rate 74 03/03/25 11:00 Respiratory Rate 18 03/03/25 09:03 Blood Pressure 141/65 03/03/25 11:00 Pulse Oximetry 93 03/03/25 11:00 Oxygen Delivery Me thod Room Air 03/03/25 11:00 MDM - Altered Mental Status Medical Decision Making Patient presented by ambulance for altered mental status, had been reported by EMS that there was concern for tramadol overdose at home, and she was showing signs of arousal after being given 1 mg of Narcan prehospital. On arrival is lethargic appearing but pupils equally reactive, though sluggish, and over the course of her ED visit she is more responsive and has been oxygenating well on room air. She had some complaints of abdominal pain, and reports to me that she has been intentionally taking tramadol to treat her constipation pain, though I do not see any prescription of this in her med list. Reportedly she was taking her mom's tramadol. This is despite being her UDS negative, this is likely just because it was tramadol that she was taking. Head CT negative, abdominal pelvis CT negative other than acute constipation. Overall she is stable for discharge and there is no reason for admission to the hospital as she is fully alert and oriented and she is thoroughly educated on the importance to not take medication she is not prescribed, specifically tramadol as it can worsen constipation and worse cause respiratory depression. who is present in the room endorses understanding, patient endorses understanding and they will be allowed discharge home with strict return precautions. Lab Data 03/03/25 08:43 03/03/25 08:43 Radiology Impressions Chest X-Ray 03/03/25 09:14 IMPRESSION: No acute findings. Abdomen X-Ray 03/03/25 09:17 IMPRESSION: Questionable pneumatosis intestinalis involving the descending colon. Ischemic bowel can not be excluded. CT scan for further evaluation is advised. ADDENDUM: 03/03/25 1026 COMMENT: THIS REPORT CONTAINS FINDINGS THAT MAY BE CRITICAL TO PATIENT CARE. The exam findings were verbally communicated by me to GALILEO BANDA via telephone conference at 10:23 AM CDT on 03/03/2025. The findings were acknowledged and understood. Head CT 03/03/25 09:30 IMPRESSION: 1. No acute intracranial finding. 2. Mucosal thickening in right sphenoidal sinus. 3. Cortical atrophy is present. 4. Likely mild small-vessel ischemic changes. Abdomen/Pelvis CT 03/03/25 10:23 IMPRESSION: 1. No pneumatosis intestinalis seen in the descending colon. Findings on the x-ray likely artifact from the stool. 2. Diffuse colonic stool material. Clinical correlation to exclude constipation is advised. 3. Mild calcified atherosclerotic changes are seen throughout the abdominal aorta. 4. Sigmoid and descending colon diverticulosis. Laboratory Results WBC 6.79 10^3/uL (3.29-11.43) 03/03/25 08:43 RBC 3.86 10^6/uL (3.85-5.65) 03/03/25 08:43 Hgb 10.60 g/dL (11.27-16.99) L 03/03/25 08:43 Hct 34.1 % (36-47) L 03/03/25 08:43 MCV 88.3 fl (85-98) 03/03/25 08:43 MCH 27.5 pg (27-33) 03/03/25 08:43 MCHC 31.1 g/dL (30-55) 03/03/25 08:43 RDW 14.7 % (12.1-15.1) 03/03/25 08:43 Plt Count 446 10^3/cmm (157-399) H 03/03/25 08:43 MPV 11.0 fL (7.4-10.4) H 03/03/25 08:43 Neut % (Auto) 43.4 % 03/03/25 08:43 Lymph % (Auto) 37.3 % 03/03/25 08:43 Ector % (Auto) 12.2 % 03/03/25 08:43 Eos % (Auto) 5.0 % 03/03/25 08:43 Baso % (Auto) 1.5 % 03/03/25 08:43 Neut # (Auto) 2.95 10^3/uL (1.8-7.7) 03/03/25 08:43 Lymph # (Auto) 2.5 10^3/uL (0.8-4.8) 03/03/25 08:43 Ector # (Auto) 0.8 10^3/uL (0.2-0.9) 03/03/25 08:43 Eos # (Auto) 0.3 10^3/uL (0.0-0.8) 03/03/25 08:43 Baso # (Auto) 0.1 10^3/uL (0.0-0.1) 03/03/25 08:43 Nucleated RBC % (auto) 0 % 03/03/25 08:43 Nucleated RBCs # 0.0 /100WBC 03/03/25 08:43 Specimen Type Arterial 03/03/25 09:35 Sample Site Brachial, right 03/03/25 09:35 ABG pH 7.39 (7.35-7.45) 03/03/25 09:35 ABG pCO2 48.4 mmHg (35-45) H 03/03/25 09:35 ABG pO2 69.9 mmHg (80.0-100.0) L 03/03/25 09:35 ABG PO2/FiO2 Ratio 332 03/03/25 09:35 ABG HCO3 29.5 mmol/L (22-26) H 03/03/25 09:35 ABG O2 Saturation 94.3 03/03/25 09:35 ABG Base Excess 3.8 mmol/L (-2.0-2.0) H 03/03/25 09:35 Eusebio Test N/a 03/03/25 09:35 A-a O2 Gradient 2.7 mmHg (5-10) L 03/03/25 09:35 Hematocrit 36.3 % (37-47) L 03/03/25 09:35 Hgb O2 Saturation 92.9 % (95-100) L 03/03/25 09:35 Carboxyhemoglobin 0.9 %THgb (0.4-20.1) 03/03/25 09:35 Methemoglobin 0.5 % (0.4-1.5) 03/03/25 09:35 Total Hemoglobin 11.9 g/dL (12-16) L 03/03/25 09:35 Sodium 142.0 mmol/L (131-143) 03/03/25 09:35 Potassium 3.6 mmol/L (3.5-5.0) 03/03/25 09:35 Glucose 104.0 mg/dL (70-115) 03/03/25 09:35 Ionized Calcium 1.3 mmol/L (1.1-1.4) 03/03/25 09:35 O2 Delivery Device Room air 03/03/25 09:35 FiO2 21.0 % 03/03/25 09:35 Extractor Filler ID glc 03/03/25 09:35 Sodium 138 mmol/L (136-145) 03/03/25 08:43 Potassium 4.2 mmol/L (3.5-5.1) 03/03/25 08:43 Chloride 98 mmol/L (98-107) 03/03/25 08:43 Carbon Dioxide 28 mmol/L (22-29) 03/03/25 08:43 Anion Gap 16.2 (5-19) 03/03/25 08:43 BUN 26 mg/dL (8-23) H 03/03/25 08:43 Creatinine 1.4 mg/dL (0.5-0.9) H 03/03/25 08:43 GFR Calculation 37.4 mL/min (90-130) L 03/03/25 08:43 Glucose 107 mg/dL (65-115) 03/03/25 08:43 Calculated Osmolality 291 mOsm/kg (285-295) 03/03/25 08:43 Lactic Acid 0.8 mmol/L (0.5-2.2) 03/03/25 09:24 Calcium 10.2 mg/dL (8.5-10.5) 03/03/25 08:43 Total Bilirubin 0.2 mg/dL (0.15-1.2) 03/03/25 08:43 AST 27 U/L (0-32) 03/03/25 08:43 ALT 14 U/L (0-33) 03/03/25 08:43 Alkaline Phosphatase 81 U/L (35-105) 03/03/25 08:43 Total Protein 7.8 g/dL (6.6-8.7) 03/03/25 08:43 Albumin 4.2 g/dL (3.5-5.2) 03/03/25 08:43 Globulin 3.6 g/dL (1.3-4.6) 03/03/25 08:43 Urine Color Yellow (Yellow) 03/03/25 09:15 Urine Appearance Clear (CLEAR) 03/03/25 09:15 Urine pH 5.0 (5-7) 03/03/25 09:15 Ur Specific [place] 1.017 (1.005-1.030) 03/03/25 09:15 Urine Protein 1+ (Negative) A 03/03/25 09:15 Urine Glucose (UA) Negative (Normal) 03/03/25 09:15 Urine Ketones Negative (Negative) 03/03/25 09:15 Urine Blood Negative (Negative) 03/03/25 09:15 Urine Nitrate Negative (Negative) 03/03/25 09:15 Urine Bilirubin Negative (Negative) 03/03/25 09:15 Urine Urobilinogen 0.2 mg/dL (Negative) 03/03/25 09:15 Ur Leukocyte Esterase Negative (Negative) 03/03/25 09:15 Urine RBC 0-2 /hpf (0-2) 03/03/25 09:15 Urine WBC 0-5 /hpf (0-5) 03/03/25 09:15 Ur Squamous Epith Cells 0-5 /hpf (0-5) 03/03/25 09:15 Amorphous Sediment Not Reportable 03/03/25 09:15 Urine Bacteria None seen /hpf (NONE) 03/03/25 09:15 Hyaline Casts 10.73 /lpf 03/03/25 09:15 Urine Opiates Screen Negative ng/mL (Negative) 03/03/25 09:15 Ur Barbiturates Screen Negative ng/mL (Negative) 03/03/25 09:15 Ur Phencyclidine Scrn Negative ng/mL (Negative) 03/03/25 09:15 Ur Amphetamines Screen Negative ng/mL (Negative) 03/03/25 09:15 U Benzodiazepines Scrn Negative ng/mL (Negative) 03/03/25 09:15 Urine Cocaine Screen Negative ng/mL (Negative) 03/03/25 09:15 U Marijuana (THC) Screen Negative ng/mL (Negative) 03/03/25 09:15 All radiology interpretation(s) finalized by discharge Discharge Plan Discharge Patient Disposition: Home Clinical Impression: Opiate overdose Qualifiers: Encounter type: initial encounter Injury intent: accidental or unintentional Q ualified Code(s): T40.601A - Poisoning by unspecified narcotics, accidental (unintentional), initial encounter Condition: Stable Prescriptions: No Action lisinopril 2.5 mg tablet 2.5 mg PO DAILY levothyroxine 50 mcg tablet 50 mcg PO ONCE trazodone 50 mg tablet 50 mg PO duloxetine 60 mg capsule,delayed release(DR/EC) 60 mg PO DAILY baclofen 20 mg tablet 20 mg PO DAILY PRN (Reason: Pain) rosuvastatin [Crestor] 5 mg tablet 5 mg PO 1XD calcium carbonate-vitamin D3 600 mg-10 mcg (400 unit) tablet 600 tab PO DAILY Discharge Orders: Discharge ED (Routine); Ordered 03/03/25 Ordered By: Galileo Powell Referrals: Mony Mariscal MD [Primary Care Provider, Internal Medicine] Patient Instructions: Altered Mental Status (ED) Activity Restrictions/Additional Instructions: Opioid Overdose Discharge Instructions Discharge Instructions: Opioid Overdose and Constipation Diagnosis and Hospital Course - 69-year-old female presented with altered mental status due to opioid overdose (tramadol, not prescribed). - Responded appropriately to naloxone administration. - Laboratory studies and head CT were normal. - Abdominal X-ray revealed constipation. Opioid Overdose Management - Opioid overdose can cause respiratory depression, altered mental status, and may be fatal if untreated. Naloxone is the recommended antidote and is safe and effective for reversing opioid-induced respiratory depression.[1] https://www.ahajournals.org/doi/abs/10.1161/CIR.4109137552581556?url_ver=Z2002&rfr_id=suresh:rid:crossref.org&rfr_dat=cr_pub%20%200pubmed - The duration of action of naloxone is shorter than many opioids; recurrent CONTACT CENTER ASSOCIATE or respiratory depression may occur, but the patient remained stable during observation.[1] https://www.ahajournals.org/doi/abs/10.1161/CIR.1864461842767274?url_ver=2002&rfr_id=suresh:rid:crossref.org&rfr_dat=cr_pub%20%200pubmed - Previous opioid overdose is associated with increased risk for future overdose. Discontinuation of non-prescribed opioids is strongly recommended. Continued opioid use should be avoided unless clinically indicated and closely monitored.[2] https://www.ncbi.nlm.nih.gov/pmc/articles/OMP3218512/ Medication Instructions - Tramadol: Discontinue immediately. Tramadol is not among the patient?s prescribed medications and poses significant risk for overdose, respiratory depression, and , especially in older adults and those with comorbidities.[ 2] https://www.ncbi.nlm.nih.gov/pmc/articles/LNF4741145/ [3] https://dailymed.nlm.nih.gov/dailymed/scott rugInfo.cfm?myjhi=6ac080j0-1ob0-8661-x157-7h01l14tzb63 [4] https://dailymed.nlm.nih.gov/dailymed/yamilet gInfo.cfm?setid=67o1l26l-7289-98i2-c3y5-f4uizbx17o07 - Constipation Medications: The patient will be discharged with medications for constipation. First-line management includes dietary modifications (increased fiber and fluid intake) and osmotic laxatives. Stimulant laxatives may be used if needed. Peripherally acting ?-opioid receptor antagonists (PAMORAs) such as naldemedine are FDA-approved for opioid-induced constipation in adults with chronic non-cancer pain and may be considered if standard laxatives are ineffective.[5] https://www.fda.gov/drugs/ihqg-rggeelwrt-fak-databases/vamimukc-zaeg-zjxuaytz-th ccxokpbog-trqkzsqbpgu-eystrktgfyz-orange-book [6] https://linkinghub.Snakk Mediavier.com/retrieve/pii/F6367-2497(71)00509-6 [7] https://jamanetwork.com/journals/rashawn/fullarticle/10.1001/rashawn.2015.85517?utm_so urce=openevidence&utm_medium=referral [8] https://pubmed.ncbi.nlm.nih.gov/29895364 [9] https://pubmed.ncbi.nlm.nih.g ov/85066204 [10] https://doi.org/10.1097/DCR.1645742572911202 [11] https://pubmed.ncbi.nlm.nih.gov/41491056 Lifestyle and Supportive Measures - Encourage increased hydration and dietary fiber intake (e.g., fruits, vegetables, whole grains).[10] https://doi.org/10.1097/DCR.4095141151024984 [11] https://pubmed.ncbi.nlm.nih.gov/23066090 - Maintain or increase physical activity as tolerated.[10] https://doi.org/10.1097/DCR.0240531361419730 [11] https://pubmed.ncbi.nlm.nih.gov/34876197 - Avoid stool softeners or fiber laxatives without a stimulant component if opioids are used.[2] https://www.ncbi.nlm.nih.gov/pmc/articles/RYA4053681/ - Monitor for regular bowel movements; report persistent constipation or new symptoms. Follow-Up and Warning Signs - Schedule prompt follow-up with primary care provider for medication reconciliation, assessment for opioid use disorder, and ongoing management.[2] https://www.ncbi.nlm.nih.gov/pmc/articles/XCO0631232/ - Return to the emergency department immediately for any of the following: - New or worsening shortness of breath, confusion, or decreased consciousness. - Severe abdominal pain, vomiting, or inability to pass stool. - Signs of opioid withdrawal (e.g., sweating, agitation, muscle aches). - Any other concerning symptoms. Prevention and Education - Discuss risks of opioid use, including overdose, dependence, and constipation. [2] https://www.ncbi.nlm.nih.gov/pmc/articles/DXS0041045/ - Naloxone should be considered for home use in patients at risk for future overdose; education on its use and overdose prevention is recommended for patients and family members.[2] https://www.ncbi.nlm.nih.gov/pmc/articles/TOT9277058/ [12] https://www.nejm.org/doi/full/10.1056/SPGZyk6280258 - Do not take any medications not prescribed by a healthcare provider. Summary - The patient is stable for discharge after opioid overdose reversal and management of constipation. - Discontinue tramadol and avoid all non-prescribed opioids. - Continue constipation management as directed. - Follow up with primary care and return for any new or worsening symptoms. References: [place] [employer] Association, CDC, [place] Gastroenter[employer] Association, [place] Society of Colon and Rectal Surgeons, FDA labeling, systematic reviews.[5] https://www.fda.gov/drugs/lvrs-akpwcezuv-atl-databases/ttvsmkgd-qsjf-dgkhwbgn-th ptlkcnfir-reoygovdwxg-icjpfsiahsf-orange-book [6] https://[employer] Visual Sciencesb.Inhabi.com/retrieve/pii/R1239-8811(21)08688-6 [7] https://jamanetwork.com/journals/rashawn/fullarticle/10.1001/rashawn.2015.68679?utm_so urce=openevidence&utm_medium=referral [2] https://www.ncbi.nlm.nih.gov/pmc/articles/KCW8355566/ [8] https://pubmed.n cbi.nlm.nih.gov/86896060 [9] https://pubmed.ncbi.nlm.nih.gov/19700723 [12] https://www.nejm.org/doi/full/10.1056/RJOGun7298181 [1] https://www.ahajournals.org/doi/abs/10.1161/CIR.5878275355320175?url_ver=Z39.88- 2003&rfr_id=suresh:rid:crossref.org&rfr_dat=cr_pub%20%200pubmed [3] https://dailymed.nlm.nih .gov/dailymed/drugInfo.cfm?mkmsr=1km274g4-6su2-6392-c936-0p23l89dad57 [4] https://dailymed.nlm.nih.g ov/dailymed/drugInfo.cfm?setid=30z8k72a-5918-48g0-n7h1-y8bocve67t93 [10] https://doi.org/10.1097/DCR.7996655229099234 [11] https://pubmed.ncbi.nlm.nih.gov/18892504 References * 2022 [place] [employer] Focused Update on the Management of Patients With Cardiac Arrest or Life-Threatening Toxicity Due to Poisoning: An Update to the [place] [employer] Association Guidelines for Cardiopulmonary Resuscitation and Emergency Cardiovascular Care https://www.ahajournals.org/doi/abs/10.1161/CIR.3807122789472527?url_ver=Z39.8 &rfr_id=suresh:rid:crossref.org&rfr_dat=cr_pub%20%200pubmed . Dorothy EJ, Jessica PD, Paul AM, et al. Circulation. 2022;148(16):b591-l941. doi:10.1161/CIR.5761359942958006. * CDC Clinical Practice Guideline for Prescribing Opioids for Pain - [facility], 2021 https://www.ncbi.nlm.nih.gov/pmc/articles/DMQ8310626/ . Ilda D, Karolyn KR, Yifan CM, Venu GT, Sherry R. MMWR. Recommendations and Reports : Morbidity and Mortality Weekly Report. Recommendations and Reports. 2021;71(3):1-95. doi:10.20570/mmwr.ak5641f9. * ULTRAM ER https://dailymed.nlm.nih.gov/dailymed/drugInfo.cfm?oghwz=9eg386r8-5rr7-7835-i1 40-9c78e96sch59 . Food and Drug Administration. Updated date: 2010-05-20. * TRAMADOL HYDROCHLORIDE https://dailymed.nlm.nih.gov/dailymed/drugInfo.cfm?setid=14i5t31b-0255-93g8-u5 f9-h3viffq27z82 . Food and Drug Administration. Updated date: 2022-03-20. * FDA [place] Book https://www.fda.gov/drugs/cepi-cyidqqrsu-thy-databases/oisnmgsx-cgnd-zersynlf- trdnhmerckf-giczqdwdqns-lmwisfrlkme-orange-book . FDA [place] Book. * [place] [employer] [place] Guideline on the Medical Management of Opioid-Induced Constipation https://linkinghub.elsevier.com/retrieve/pii/G2752-236199(85)81137-6 . Christal BOB, Jamee KB, Elizabeth JJ, et al. Gastroenterology. 2019;156(1):218-226. doi:10.1053/j.gastro.2018.07.016. * Constipation: Advances in Diagnosis and Treatment https://jamanetwork.com/journals/rashawn/fullarticle/10.1001/rashawn.2015.09483?utm_ source=openevidence&utm_medium=referral . Enrique Barnhart. RASHAWN. 2016;315(2):185-91. doi:10.1001/rashawn.2015.61996. * Efficacy of Pharmacological Therapies for the Treatment of Opioid-Induced Constipation: Systematic Review and Network Hewitt-Analysis https://pubmed.ncbi.nlm.nih.gov/33084266 . Tasha P, Telma NE, Levon DM, Jared AC. Gut. 2019;68(3):434-444. doi:10.1136/qwbixu-5029-240171. * Efficacy of Treatments for Opioid-Induced Constipation: Systematic Review and Hewitt-Analysis https://pubmed.ncbi.nlm.nih.gov/44172094 . Vicki J, Kyle M, Ajay MA, et al. Clinical Gastroenterology and Hepatology : The Official Clinical Practice Journal of the [place] Gastro[employer] Association. 2018;16(10):3065-8587.e2. doi:10.1016/j.cgh.2018.01.021. * The [place] Society of Colon and Rectal Surgeons Clinical Practice Guidelines for the Evaluation and Management of Chronic Constipation https://doi.org/10.1097/DCR.3497197856039374 . Kacy K, Deandre AJ, Fang SH, et al. Diseases of the Colon and Rectum. 2023;67(10):7860-2334. doi:10.1097/DCR.2238955757688729. * Chronic Constipation in Adults https://pubmed.ncbi.nlm.nih.gov/99749724 . Cornelio K, Darrius F, Brain S. [place] Family Physician. 2021;106(3):299-306. * Prevention of Opioid Overdose https://www.nejm.org/doi/full/10.1056/OGSTeb9521407 . Monster KM, Darrick J, Nena DN. The [place] Journal of Medicine. 2019;380(23):2233-3505. doi:10.1056/BUVVug5625240. Print Language: Luxembourger Coding Level of Care Code ED [employer] Team Member for Angelique Torres
[2025-03-03 09:25] LABS: Glucose Urine UA Negative (Normal); Nitrate Urine Negative (Negative); Specific Gravity, Urine 1.017 (1.005-1.030)
[2025-03-03 09:30] LABS: Add Urine Microscopic? YES; Universal Test for UA Present (0)
--- NOTE | 2025-03-03 09:30 | CTR_ITS ---
PROCEDURE INFORMATION: Exam: CT Head Without Contrast Exam date and time: 03/03/2025 9:48 AM Age: 69 years old Clinical indication: Altered mental status/memory loss; Confusion or disorientation; Additional info: AMS TECHNIQUE: Imaging protocol: Computed tomography of the head without contrast. Radiation optimization: All CT scans at this facility use at least one of these dose optimization techniques: automated exposure control; mA and/or kV adjustment per patient size (includes targeted exams where dose is matched to clinical indication); or iterative reconstruction. COMPARISON: CT head wo con* [id number] 03/03/2025 9:17 AM RADIATION DOSE METRICS: Total DLP (mGy-cm): 1086.58 FINDINGS: Brain: No midline shift or acute intracranial hemorrhage. Cortical atrophy is present. Periventricular hypodensities are nonspecific and likely representing mild small vessel ischemic changes. Cerebral ventricles: No ventriculomegaly. Paranasal sinuses: Mucosal thickening in right sphenoidal sinus. Mastoid air cells: Visualized mastoid air cells are well aerated. Bones: Unremarkable. No acute fracture. Soft tissues: Unremarkable. CT/CT head wo con* [id number] IMPRESSION: 1. No acute intracranial finding. 2. Mucosal thickening in right sphenoidal sinus. 3. Cortical atrophy is present. 4. Likely mild small-vessel ischemic changes.
[2025-03-03 09:31] LABS: PCP Screen Urine Negative (Negative)
[2025-03-03 09:34] LABS: Alanine Aminotransferase 14 U/L (0-33); Albumin Level 4.2 g/dL (3.5-5.2); Alkaline Phosphatase 81 U/L (35-105); Aspartate Amino Transferase 27 U/L (0-32); Blood Urea Nitrogen 26 mg/dL (8-23); Calcium 10.2 mg/dL (8.5-10.5); Carbon Dioxide 28 mmol/L (22-29); Chloride 98 mmol/L (98-107); Creatinine Clr Calc Pharmacy 30.9189; Globulin 3.6 g/dL (1.3-4.6); Glucose 107 mg/dL (65-115); Osmolality Calculated 291 mOsm/kg (285-295); Sodium 138 mmol/L (136-145); Total Protein 7.8 g/dL (6.6-8.7)
[2025-03-03 09:45] LABS: ABG PCO2 48.4 mmHg (35-45); ABG PH Result 7.39 (7.35-7.45); Alveolar-Arterial Oxygen Gradi 2.7 mmHg (5-10); Arterial Blood Gas Hematocrit 36.3 % (37-47); Blood Gas Operator Identificat glc; Blood Gas Sample Site Brachial, right; Blood Gas Sample Type Arterial; Carboxyhemoglobin 0.9 %THgb (0.4-20.1); Glucose Level-ABG 104.0 mg/dL (70-115); HCO3 ABG 29.5 mmol/L (22-26); Ionized Calcium Level - ABG 1.3 mmol/L (1.1-1.4); Methemoglobin 0.5 % (0.4-1.5); Oxygen Saturation ABG 94.3; PO2 ABG 69.9 mmHg (80.0-100.0); PO2 FiO2 Ratio Arterial Blood 332; Potassium Level - ABG 3.6 mmol/L (3.5-5.0); Sodium Level - ABG 142.0 mmol/L (131-143)
[2025-03-03 09:45] LABS: Anion Gap 16.2 (5-19); Potassium 4.2 mmol/L (3.5-5.1)
[2025-03-03 09:46] LABS: Lactic Sepsis W/Reflex 0.8 mmol/L (0.5-2.2)
[2025-03-03 09:47] LABS: UA Slide Review UA Slide Review Perf
[2025-03-03 10:00] VITALS: BP 173/85; PULSE 65; O2SAT 95
--- NOTE | 2025-03-03 10:23 | CTR_ITS ---
PROCEDURE INFORMATION: Exam: CT Abdomen And Pelvis With Contrast Exam date and time: 03/03/2025 10:38 AM Age: 69 years old Clinical indication: Constipation; Additional info: XR findings concerning for ischemic bowel TECHNIQUE: Imaging protocol: Computed tomography of the abdomen and pelvis with contrast. Radiation optimization: All CT scans at this facility use at least one of these dose optimization techniques: automated exposure control; mA and/or kV adjustment per patient size (includes targeted exams where dose is matched to clinical indication); or iterative reconstruction. Contrast material: OMNI 350; Contrast volume: 80 ml; Contrast route: INTRAVENOUS (IV); COMPARISON: CT abdomen pelvis wo con [id number] 05/12/2024 6:03 PM RADIATION DOSE METRICS: Total DLP (mGy-cm): 366.93 FINDINGS: Liver: Too small to characterize right hepatic 3 mm hypodensity. Gallbladder and biliary ducts: Normal. No calcified stones. No ductal dilation. Pancreas: Normal. No ductal dilation. Spleen: Normal. No splenomegaly. Adrenal glands: Normal. No mass. Kidneys and ureters: Normal. No hydronephrosis. Stomach and bowel: Sigmoid and descending colon diverticulosis. Diffuse colonic stool material. No small bowel loop dilatation. Appendix: Appendix is normal. Intraperitoneal space: Unremarkable. No free air. No significant fluid collection. Vasculature: Mild calcified atherosclerotic changes are seen throughout the abdominal aorta. Lymph nodes: Unremarkable. No enlarged lymph nodes. Urinary bladder: Unremarkable as visualized. Reproductive: Unremarkable as visualized. Bones/joints: Mild lumbar spine degenerative changes. Soft tissues: Unremarkable. CT/CT abdomen pelvis w con* [id number] IMPRESSION: 1. No pneumatosis intestinalis seen in the descending colon. Findings on the x-ray likely artifact from the stool. 2. Diffuse colonic stool material. Clinical correlation to exclude constipation is advised. 3. Mild calcified atherosclerotic changes are seen throughout the abdominal aorta. 4. Sigmoid and descending colon diverticulosis.
[2025-03-03] MEDS: iohexol 350 mg/mL 500 mL Btl (per mL) IV (10:41)
[2025-03-03 11:00] VITALS: BP 141/65; PULSE 74; O2SAT 93
[2025-03-03] MEDS: lactulose oral liq 20 gm/30 mL UDC 30 GM PO (11:54)
[2025-03-03] MEDS: magnesium citrate Btl 296 mL PO (11:55)
[2025-03-03 12:01] VITALS: BP 170/92; PULSE 74; O2SAT 93
== END 2025-03-03 12:03 | disposition home or self-care (01) ==
PROVIDERS: Emergency Provider Physician Assistant; PCP Internal Medicine
DX: T40.601A Poisoning by unspecified narcotics, accidental (unintentional), initial encounter (principal); Z87.891 Personal history of nicotine dependence; I25.10 Atherosclerotic heart disease of native coronary artery without angina pectoris; I10 Essential (primary) hypertension; X58.XXXA Exposure to other specified factors, initial encounter
CPT/HCPCS: 36415; 36600; 70450; 71045; 74018; 74177; 80051; 80053; 80306; 81001; 82330; 82805; 83605; 85025; 87040; 93005; 99285; J9999

== ENCOUNTER 2025-05-17 10:03 | Observation (INO) | payer MEDICARE, SELFPAY ==
[2025-05-17] VITALS (9 sets, daily range): BP systolic 128–168; BP diastolic 61–81; PULSE 64–85; RESP 15–18; TEMP 36.3–37.2; O2SAT 84–97; BMI 22.8
--- NOTE | 2025-05-17 10:03 | XRR_ITS ---
PROCEDURE INFORMATION: Exam: XR Chest Exam date and time: 05/17/2025 10:09 AM Age: 70 years old Clinical indication: Injury or trauma; Fall; Bleeding/hemorrhage TECHNIQUE: Imaging protocol: Radiologic exam of the chest. Views: 1 view. COMPARISON: CR XR chest 1V portable [id number] 03/03/2025 9:22 AM FINDINGS: Lungs: Unremarkable. No consolidation. Pleural spaces: Unremarkable. No pleural effusion. No pneumothorax. Heart/Mediastinum: Unremarkable. No cardiomegaly. Bones/joints: Degenerative changes [id number]-left shoulder. This is not definitely changed from prior. XR/XR chest 1V portable [id number] IMPRESSION: No acute cardiopulmonary abnormality.
--- NOTE | 2025-05-17 10:03 | CTR_ITS ---
PROCEDURE INFORMATION: Exam: CT Cervical Spine Without Contrast Exam date and time: 05/17/2025 10:54 AM Age: 70 years old Clinical indication: Injury or trauma; Fall; Blunt trauma TECHNIQUE: Imaging protocol: Computed tomography of the cervical spine without contrast. Radiation optimization: All CT scans at this facility use at least one of these dose optimization techniques: automated exposure control; mA and/or kV adjustment per patient size (includes targeted exams where dose is matched to clinical indication); or iterative reconstruction. COMPARISON: PT PET skull to thigh INIT [id number] 10/11/2023 1:42 PM RADIATION DOSE METRICS: Total DLP (mGy-cm): 146.4 FINDINGS: Bones: No acute fracture. Anterolisthesis C3-C4, C4-C5. This is similar to MRI 05/06/2020, likely degenerative. Moderate degenerative changes are present within the cervical spine, within the range of typical for age. Brain: The visualized portions of the brain within the field of view show no acute intracranial abnormality. Lungs: Linear probable scarring in the right upper lobe similar to PET-CT 10/11/2023. No new abnormality of the pulmonary parenchyma. Soft tissues: CT is limited for the purpose of assessing the soft tissue contents of the spinal canal, within the scope of this examination there is no significant abnormality. CT/CT cervical spin wo con* [id number] IMPRESSION: No acute fracture. Anterolisthesis C3-C4, C4-C5. This is similar to MRI 05/06/2020, likely degenerative
--- NOTE | 2025-05-17 10:03 | XRR_ITS ---
PROCEDURE INFORMATION: Exam: XR Pelvis Exam date and time: 05/17/2025 10:09 AM Age: 70 years old Clinical indication: Injury or trauma; Fall; Blunt trauma (contusions or hematomas); Bilateral; Pelvic region TECHNIQUE: Imaging protocol: Radiologic exam of the pelvis. Views: 1 or 2 view. COMPARISON: CT abdomen pelvis w con* [id number] 03/03/2025 10:38 AM FINDINGS: Bones/joints: No displaced pelvic fracture on limited frontal view. Soft tissues: Unremarkable. XR/XR pelvis 1-2V* [id number] IMPRESSION: No displaced pelvic fracture on limited frontal view.
--- NOTE | 2025-05-17 10:03 | CTR_ITS ---
PROCEDURE INFORMATION: Exam: CT Head Without Contrast Exam date and time: 05/17/2025 10:54 AM Age: 70 years old Clinical indication: Injury or trauma; Fall TECHNIQUE: Imaging protocol: Computed tomography of the head without contrast. Radiation optimization: All CT scans at this facility use at least one of these dose optimization techniques: automated exposure control; mA and/or kV adjustment per patient size (includes targeted exams where dose is matched to clinical indication); or iterative reconstruction. COMPARISON: CT head wo con* [id number] 03/03/2025 9:48 AM RADIATION DOSE METRICS: Total DLP (mGy-cm): 1185.2 FINDINGS: Brain: No intracranial hemorrhage. No extra-axial fluid collection. No mass effect. Cerebral ventricles: No ventriculomegaly. Paranasal sinuses: Partial opacification right sphenoid sinus. Mastoid air cells: Partial opacification of the inferior left mastoid air cells.. Bones: No calvarial fracture. Soft tissues: Extensive, significant scalp hematoma, the majority of the right scalp, also to involve the left parieto-occipital scalp. CT/CT head wo con* [id number] IMPRESSION: Extensive scalp hematoma, without fracture or acute intracranial abnormality.
--- OUTSIDE RECORDS SUMMARY | 2025-05-17 10:05 | XMS_ITS | Patient Health Record ---
Author Organization 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) Active confirmed Plan Of Treatment No Information Insurance Providers Payer Name Payer Address Payer Phone Subscriber Number Group Number Insured Name Patient Relationship to Insured Coverage Start Date Coverage End Date [employer] Medicare Replacement [address] [address] [place] [phone] [id number] DAISHA FIELDS Self - patient is the insured Medical (General) History Medical History History ICD Code pneumonia arathritis anemia bladder infections blood plasma transfusion Surgical History Surgery Date(Month/Year) Rotaor cuff 2023 Cauterize Ulcer 2012 Hospitalization History Reason Date(Month/Year) See Surgical HX
--- OUTSIDE RECORDS SUMMARY | 2025-05-17 10:05 | XMS_ITS | Clinical Summary ---
Author Organization [facility] Address [address] Attn: [place] [id number] Care Team Providers Care Shot Examiner Name Role Phone Unavailable Primary Care Provider Unavailabl e Encounters Date Type Department Care Team Description 04/02/2025 External Device Data [facility] ABSTRACTION Provider, Abstract 03/28/2025 Telephone [facility] Ambulatory Quality [address] [place] [address] Danny Lyman MD Medical Records (Medical Records Request faxed to [facility] external provider for latest known Blood Pressure Test Date and Result) from Last 3 Months Social History Tobacco Use Types Packs/Day Years Used Date Smoking Tobacco: Never Assessed Comments Unknown Sex and Gender Information Value Date Recorded Sex Assigned at Not on file 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
--- NOTE | 2025-05-17 10:08 | W.ED.FALL ---
HPI - Fall General: Chief Complaint: Fall Stated Complaint: fall - head pain Source: EMS Mode of arrival: EMS Limitations: altered mental status History of Present Illness: 70-year-old female who fell outside onto concrete and knocked on neighbors door I did hit her head has a laceration to her posterior scalp. [facility] patient has not been cooperative with them. She does have a history of behavioral issues and possible dementia. Patient here will awake will follow some commands but refuses to answer any questions. Related Data Home Medications ?Medication ?Instructions ?Recorded ?Confirmed duloxetine 60 mg capsule,delayed 60 mg PO DAILY 10/05/22 05/17/25 release baclofen 20 mg tablet 20 mg PO DAILY PRN Pain 11/10/22 05/17/25 rosuvastatin 5 mg tablet (Crestor) 5 mg PO 1XD 10/12/23 05/17/25 calcium 600 mg (as 600 tab PO DAILY 05/12/24 05/17/25 carbonate)-vitamin D3 10 mcg (400 unit) tablet levothyroxine 50 mcg tablet 50 mcg PO ONCE 07/30/24 05/17/25 trazodone 50 mg tablet 50 mg PO BEDTIME 07/30/24 05/17/25 Allergies Allergy/AdvReac Type Severity Reaction Status Date / Time NSAIDS (Non-Steroidal Allergy Intermediate HISTORY OF Verified 03/03/25 09:10 Anti-Inflamma BLEEDING ULCER Review of Systems General: Reports: ROS unobtainable due to mental status [facility] PFSH: Medical History (Updated 05/17/25 @ 13:02 by Fercho Zhang MD) History of hypertension Coronary artery disease Surgical History H/O shoulder surgery Social History Smoking and tobacco/nicotine status: former use of tobacco/nicotine Quit status (tobacco/nicotine): has quit using Second hand smoke exposure: No Alcohol intake: never Substance/Drug Use: never Lives independently: Yes Household members: spouse Marital status: Highest education level completed: High School Graduate Special andreina needs: No Physical Exam Const: COMMON NORMALS: negative for patient oriented x3 EXAM LIMITATIONS: altered mental status HENMT: COMMON NORMALS: normocephalic; head/scalp not atraumatic (1 cm laceration posterior scalp) HEAD & SCALP: normocephalic; not atraumatic (1 cm laceration posterior scalp) Eye: COMMON NORMALS: Equal, round and reactive pupils present and EOMs intact bilaterally PUPIL: Yes Equal, round and reactive pupils present Neck/C-Spine: COMMON NORMALS: full ROM and supple Chest: COMMONS NORMALS: normal inspection of the chest and normal palpation of entire chest wall Resp: COMMON NORMALS: normal respiratory effort, No retractions, No use of accessory muscles and clear to auscultation bilaterally AUSCULTATION: clear to auscultation bilaterally Cardio: COMMON NORMALS: regular rate, regular rhythm and No murmurs present (Cardio) RATE: regular rate RHYTHM: regular rhythm GI: COMMON NORMALS: Normal to inspection, nondistended, normoactive bowel sounds present, Soft to palpation, non-tender and no masses PALPATION: Yes Soft to palpation Extremity: COMMON NORMALS: normal to inspection and full ROM Neuro: COMMON NORMALS: moves all extremities and no focal motor deficits; negative for patient oriented x3 Psych: COMMON NORMALS: negative for cooperative Skin: COMMON NORMALS: no rashes or lesions noted and no wounds GENERAL SKIN EXAM: no rashes or lesions noted Procedures Laceration Laceration 1: Site: scalp Size (cm): 1 Description: linear Depth: simple, single layer Pre-repair: wound explored and irrigated extensively Skin layer closed with: other (1 staple) Course Vital Signs: Vital signs: Vital Signs Temperature 97.8 F 05/17/25 10:00 Pulse Rate 85 05/17/25 11:46 Respiratory Rate 16 05/17/25 10:48 Blood Pressure 142/78 05/17/25 11:46 Pulse Oximetry 91 05/17/25 11:46 Oxygen Delivery Me thod Room Air 05/17/25 11:46 MDM - Fall Medical Decision Making Patient presents here with head laceration after a fall. Does have a history dementia but she is more confused at her baseline. She is continue to be extremely confused here she has no signs of infection head CT showed no signs of hemorrhage or skull fracture. Did repair laceration with staple spoke to hospitalist Dr. Goodwin and will admit for observation Medical Records I reviewed the patient's medical records. Lab Data I reviewed the patient's lab results. 05/17/25 10:25 05/17/25 10:25 Radiology Impressions Cervical Spine CT 05/17/25 10:03 IMPRESSION: No acute fracture. Anterolisthesis C3-C4, C4-C5. This is similar to MRI 05/06/2020, likely degenerative Chest X-Ray 05/17/25 10:03 IMPRESSION: No acute cardiopulmonary abnormality. Head CT 05/17/25 10:03 IMPRESSION: Extensive scalp hematoma, without fracture or acute intracranial abnormality. Pelvis X-Ray 05/17/25 10:03 IMPRESSION: No displaced pelvic fracture on limited frontal view. Laboratory Results WBC 15.33 10^3/uL (3.29-11.43) H 05/17/25 10:25 RBC 3.87 10^6/uL (3.85-5.65) 05/17/25 10:25 Hgb 10.70 g/dL (11.27-16.99) L 05/17/25 10:25 Hct 34.0 % (36-47) L 05/17/25 10:25 MCV 87.9 fl (85-98) 05/17/25 10:25 MCH 27.6 pg (27-33) 05/17/25 10:25 MCHC 31.5 g/dL (30-55) 05/17/25 10:25 RDW 15.6 % (12.1-15.1) H 05/17/25 10:25 Plt Count 201 10^3/cmm (157-399) 05/17/25 10:25 MPV 11.1 fL (7.4-10.4) H 05/17/25 10:25 Neut % (Auto) 82.8 % 05/17/25 10:25 Lymph % (Auto) 8.3 % 05/17/25 10:25 [place] % (Auto) 6.1 % 05/17/25 10:25 Eos % (Auto) 1.6 % 05/17/25 10:25 Baso % (Auto) 0.7 % 05/17/25 10:25 Neut # (Auto) 12.69 10^3/uL (1.8-7.7) H 05/17/25 10:25 Lymph # (Auto) 1.3 10^3/uL (0.8-4.8) 05/17/25 10:25 [place] # (Auto) 0.9 10^3/uL (0.2-0.9) 05/17/25 10:25 Eos # (Auto) 0.3 10^3/uL (0.0-0.8) 05/17/25 10:25 Baso # (Auto) 0.1 10^3/uL (0.0-0.1) 05/17/25 10:25 Nucleated RBC % (auto) 0 % 05/17/25 10:25 Nucleated RBCs # 0.0 /100WBC 05/17/25 10:25 PT 11.50 SECONDS (12.1-14.9) L 05/17/25 10:25 INR 0.78 (0.8-1.2) L 05/17/25 10:25 Sodium 142 mmol/L (136-145) 05/17/25 10:25 Potassium 3.9 mmol/L (3.5-5.1) 05/17/25 10:25 Chloride 103 mmol/L (98-107) 05/17/25 10:25 Carbon Dioxide 29 mmol/L (22-29) 05/17/25 10:25 Anion Gap 13.9 (5-19) 05/17/25 10:25 BUN 27 mg/dL (8-23) H 05/17/25 10:25 Creatinine 1.0 mg/dL (0.5-0.9) H 05/17/25 10:25 GFR Calculation 55.0 mL/min (90-130) L 05/17/25 10:25 Glucose 116 mg/dL (65-115) H 05/17/25 10:25 Calculated Osmolality 300 mOsm/kg (285-295) H 05/17/25 10:25 Calcium 9.7 mg/dL (8.5-10.5) 05/17/25 10:25 Total Bilirubin 0.2 mg/dL (0.15-1.2) 05/17/25 10:25 AST 22 U/L (0-32) 05/17/25 10:25 ALT 11 U/L (0-33) 05/17/25 10:25 Alkaline Phosphatase 76 U/L (35-105) 05/17/25 10:25 Total Protein 7.4 g/dL (6.6-8.7) 05/17/25 10:25 Albumin 4.2 g/dL (3.5-5.2) 05/17/25 10:25 Globulin 3.2 g/dL (1.3-4.6) 05/17/25 10:25 TSH 2.58 uIU/mL (0.27-4.20) 05/17/25 10:25 Urine Color Yellow (Yellow) 05/17/25 10:39 Urine Appearance Clear (CLEAR) 05/17/25 10:39 Urine pH 5.5 (5-7) 05/17/25 10:39 Ur Specific [place] 1.011 (1.005-1.030) 05/17/25 10:39 Urine Protein Negative (Negative) 05/17/25 10:39 Urine Glucose (UA) Negative (Normal) 05/17/25 10:39 Urine Ketones Negative (Negative) 05/17/25 10:39 Urine Blood Negative (Negative) 05/17/25 10:39 Urine Nitrate Negative (Negative) 05/17/25 10:39 Urine Bilirubin Negative (Negative) 05/17/25 10:39 Urine Urobilinogen 0.2 mg/dL (Negative) 05/17/25 10:39 Ur Leukocyte Esterase Negative (Negative) 05/17/25 10:39 Urine RBC 0-2 /hpf (0-2) 05/17/25 10:39 Urine WBC 0-5 /hpf (0-5) 05/17/25 10:39 Ur Squamous Epith Cells 0-5 /hpf (0-5) 05/17/25 10:39 Amorphous Sediment Not Reportable 05/17/25 10:39 Urine Bacteria None seen /hpf (NONE) 05/17/25 10:39 Hyaline Casts 1.65 /lpf 05/17/25 10:39 Urine Opiates Screen Negative ng/mL (Negative) 05/17/25 10:39 Ur Barbiturates Screen Negative ng/mL (Negative) 05/17/25 10:39 Ur Phencyclidine Scrn Negative ng/mL (Negative) 05/17/25 10:39 Ur Amphetamines Screen Negative ng/mL (Negative) 05/17/25 10:39 U Benzodiazepines Scrn Negative ng/mL (Negative) 05/17/25 10:39 Urine Cocaine Screen Negative ng/mL (Negative) 05/17/25 10:39 U Marijuana (THC) Screen Negative ng/mL (Negative) 05/17/25 10:39 Ethyl Alcohol < 10 mg/dL (0-10) 05/17/25 10:25 All radiology interpretation(s) finalized by discharge Discharge Plan Discharge Patient Disposition: Admitted As Inpatient Clinical Impression: Fall, Laceration of head, Altered mental status Condition: Stable Discharge Diet: Advance as tolerated Discharge Activity: Resume usual activity Coding Level of Care Code ED [employer] Therapist for Angelique Torres
[2025-05-17 10:37] LABS: Hematocrit 34.0 % (36-47); Hemoglobin 10.70 g/dL (11.27-16.99); Mean Corpuscular HGB Conc 31.5 g/dL (30-55); Mean Corpuscular Hemoglobin 27.6 pg (27-33); Mean Corpuscular Volume 87.9 fl (85-98); Nucleated Red Blood Cells % 0 %; Platelet Count 201 10^3/cmm (157-399); Red Blood Count 3.87 10^6/uL (3.85-5.65); White Blood Count 15.33 10^3/uL (3.29-11.43)
[2025-05-17] MEDS: morphine 4 mg/mL SDV 1 mL IVP (10:48)
[2025-05-17 10:50] LABS: INR 0.78 (0.8-1.2); Prothrombin Time 11.50 SECONDS (12.1-14.9)
[2025-05-17] MEDS: ondansetron 2 mg/ML SDV 2 mL 4 MG IVP (10:52)
[2025-05-17 10:53] LABS: Glucose Urine UA Negative (Normal); Nitrate Urine Negative (Negative); Specific Gravity, Urine 1.011 (1.005-1.030)
[2025-05-17 10:58] LABS: Add Urine Microscopic? YES
[2025-05-17 10:59] LABS: PCP Screen Urine Negative (Negative)
[2025-05-17 11:04] LABS: Alanine Aminotransferase 11 U/L (0-33); Albumin Level 4.2 g/dL (3.5-5.2); Alkaline Phosphatase 76 U/L (35-105); Aspartate Amino Transferase 22 U/L (0-32); Blood Urea Nitrogen 27 mg/dL (8-23); Calcium 9.7 mg/dL (8.5-10.5); Carbon Dioxide 29 mmol/L (22-29); Chloride 103 mmol/L (98-107); Globulin 3.2 g/dL (1.3-4.6); Glucose 116 mg/dL (65-115); Osmolality Calculated 300 mOsm/kg (285-295); Sodium 142 mmol/L (136-145); Thyroid Stimulating Hormone 2.58 uIU/mL (0.27-4.20); Total Protein 7.4 g/dL (6.6-8.7)
[2025-05-17 11:06] LABS: Alcohol Level < 10 mg/dL (0-10); Anion Gap 13.9 (5-19); Potassium 3.9 mmol/L (3.5-5.1)
--- NOTE | 2025-05-17 12:11 | PC.NURSE ---
THIS NURSE WENT TO DISCHARGE PT. PT STATES PT IS NOT TALKING TO HIM LIKE NORMAL. PT SLEEPING AND DOES NOT RESPOND TO THIS NURSE. AFTER A STERNAL RUB, PT EYES OPENED WIDE. PT STILL NOT TALKING TO THIS NURSE. DR. ARAGON NOTIFIED. HOLDING DISCHARGE UNTIL PT IS MORE ALERT.
--- NOTE | 2025-05-17 12:41 | PC.NURSE ---
THIS NURSE AND CHARGE NURSE WENT INTO PT ROOM TO ATTEMPT TO DISCHARGE PT. PT WAS HANGING CARE HOME OFF OF THE END OF THE BED. THIS NURSE AND CHARGE NURSE REPOSITIONED PT IN BED. PT WAS STILL SLEEPING AND PT STATED HE DID NOT KNOW HOW HE WAS GOING TO GET HER TO THE CAR. THIS NURSE WENT TO NOTIFY PROVIDER THAT PT WAS STILL ALTERED AND PT THOUGHT SHE WAS WORSE. PROVIDER NOTIFIED THAT HE WOULD TRY AND ADMIT PT. THIS NURSE WENT BACK IN TO ROOM AND NOTICED THAT PT WAS TRYING TO RECORD CHARGE NURSES INTERACTION WITH PT. THIS NURSE INFORMED PT THAT HE COULD NOT RECORD IN THE PT ROOM. PT VERBALIZED UNDERSTANDING AND PUT THE PHONE AWAY. THIS NURSE INFORMED PT THAT PROVIDER WAS GOING TO TRY AND ADMIT PT TO THE HOSPITAL FOR FURTHER EVALUATION.
--- NOTE | 2025-05-17 13:19 | PM.HP ---
Providers/Chief Complaint Primary Care Provider: Mony Mariscal MD Chief Complaint: fall - head pain History of Present Illness Melanie Ko is a 70 year old female with pmhx of HTN, CAD, UTI, HLD, mild dementia, staring episodes, bleeding ulcer, fractures, bilateral hand numbness, opiate overdose, former tobacco and AMS/behavioral health history presenting with complaints of fall. Today, patient fell outside and suffered head injury. She was able to knock on her neighbors door for help. EMS was called and she was transported to [facility] ED for further assistance. Of note, patient has mild dementia with history of hospitalizations for confusion, dehydration, and altered mentation with short term memory loss. In the ED, BP 142/78, HR 85, RR 16, T97.8, O2 saturation 91% on room air. WBC 15.33, Hgb 10.7, PLT 2 1. PT 11.5, INR 0.78. BUN 27, creatinine 1.0. Glucose 116. AST/ALT WNL. Urinalysis unremarkable. Toxicology negative. CT head; extensive scalp hematoma, without fracture or acute intercranial abnormality. X-ray pelvis; no displaced pelvic fracture on limited frontal view. CXR; no acute cardiopulmonary abnormality. CT cervical spine; no acute fracture, anterolithiasis of thesis C3-C4, C4-C5, this is similar to MRI from 04/2020, likely degenerative. Will admit to the hospitalist service for further evaluation and treatment. Review of Systems General: Reports: ROS unobtainable due to mental status Medications/Allergies Home Medications ?Medication ?Instructions ?Recorded ?Confirmed ?Last Taken ?Type duloxetine 60 mg capsule,delayed 60 mg PO DAILY 10/05/22 05/17/25 Unknown History release baclofen 20 mg tablet 20 mg PO DAILY PRN Pain 11/10/22 05/17/25 10/12/23 History rosuvastatin 5 mg tablet (Crestor) 5 mg PO 1XD 10/12/23 05/17/25 10/12/23 History calcium 600 mg (as 600 tab PO DAILY 05/12/24 05/17/25 Unknown History carbonate)-vitamin D3 10 mcg (400 unit) tablet levothyroxine 50 mcg tablet 50 mcg PO ONCE 07/30/24 05/17/25 Unknown History trazodone 50 mg tablet 50 mg PO BEDTIME 07/30/24 05/17/25 Unknown History Allergies Allergy/AdvReac Type Severity Reaction Status Date / Time NSAIDS (Non-Steroidal Allergy Intermediate HISTORY OF Verified 03/03/25 09:10 Anti-Inflamma BLEEDING ULCER PFSH Acute PFSH: Medical History (Updated 05/17/25 @ 13:21 by Zuly Godinez, [employer], [employer] SERVICE WORKER) History of hypertension Coronary artery disease Surgical History H/O shoulder surgery Social History Smoking and tobacco/nicotine status: former use of tobacco/nicotine Quit status (tobacco/nicotine): has quit using Second hand smoke exposure: No Alcohol intake: never Substance/Drug Use: never Lives independently: Yes Household members: spouse Marital status: Highest education level completed: High School Graduate Special andreina needs: No Vitals/I&O/Wt Last Vital Signs Temp 97.8 F 05/17/25 10:00 Pulse 85 05/17/25 11:46 Resp 16 05/17/25 10:48 BP 142/78 05/17/25 11:46 Pulse Ox 91 05/17/25 11:46 O2 Del Method Room Air 05/17/25 11:46 Weight last 48 hrs Weight 56.699 kg Physical Exam Const: COMMON NORMALS: average body habitus EXAM LIMITATIONS: altered mental status OTHER: Responds to painful stimuli, responds to verbal cues but states she does not know her birthday or where she is HENMT: COMMON NORMALS: normocephalic and atraumatic HEAD & SCALP: normocephalic and atraumatic Eye: COMMON NORMALS: conjunctivae normal CONJUNCTIVA: Yes conjunctivae normal OTHER: Pupils are equally reactive, sluggish Neck/C-Spine: COMMON NORMALS: full ROM, supple and no meningeal signs Chest: COMMONS NORMALS: normal inspection of the chest and normal palpation of entire chest wall Resp: COMMON NORMALS: normal respiratory effort, No retractions, No use of accessory muscles and clear to auscultation bilaterally AUSCULTATION: clear to auscultation bilaterally Cardio: COMMON NORMALS: regular rate, regular rhythm, S1 normal heart sound present and S2 normal heart sound present RATE: regular rate RHYTHM: regular rhythm HEART SOUNDS: S1 normal heart sound present and S2 normal heart sound present GI: COMMON NORMALS: Normal to inspection, nondistended, normoactive bowel sounds present and Soft to palpation PALPATION: Yes Soft to palpation and Yes Tenderness to palpation present (GI) (Diffuse tender to palpation) Extremity: COMMON NORMALS: normal to inspection, full ROM and capillary refill normal Neuro: COMMON NORMALS: moves all extremities, no focal motor deficits and no sensory deficits noted MENINGEAL SIGNS: Yes no meningeal signs SPEECH: speech normal GAIT: Yes Unable to assess gait OTHER: Patient does not demonstrate any facial droop or obvious focal neurological deficit, does not participate in examination Skin: COMMON NORMALS: no rashes or lesions noted GENERAL SKIN EXAM: no rashes or lesions noted Data 05/17/25 10:25 05/17/25 10:25 A&P Assessment and plan 1. Fall: CT head; extensive scalp hematoma, without fracture or acute intercranial abnormality X-ray pelvis; no displaced pelvic fracture on limited frontal view CXR; no acute cardiopulmonary abnormality CT cervical spine; no acute fracture, anterolithiasis of thesis C3-C4, C4-C5, this is similar to MRI from 04/2020, likely degenerative PT/OT prior to discharge Fall risk precautions 2. Laceration of head: CT head; extensive scalp hematoma, without fracture or acute intercranial abnormality Head laceration wound care 3. Altered mental status: History of hospitalizations for confusion, dehydration, short term memory loss Patient has dementia and family hx, family hx of TIA/stroke, of dementia Urinalysis unremarkable Toxicology negative Ammonia level pending Hold home trazadone and other sedative agents Neuro checks MRI pending as of 1424 today Neurology consult for possible transfer - [facility] supervisor notification Radiology has fowarded imaging to [facility] 4. Coronary artery disease: 2022 2D Echo; unremarkable Follows PCP; Hilda Avila MD 5. History of hypertension: BP 142/78 BP monitoring 6. HLD (hyperlipidemia): Continue home rosuvastatin Lipid panel pending 7. Hypothyroidism: Continue home levothyroxine PDMP PDMP Reviewed: Not Reviewed Attestations Medical Necessity Statement*: Initial hospitalization for two midnights s/t fall with extensive scalp hematoma and altered mental status. Diagnoses Fall W19.XXXA Laceration of head S01.91XA Altered mental status R41.82 Coronary artery disease I25.10 History of hypertension Z86.79 HLD (hyperlipidemia) E78.5 Hypothyroidism E03.9 Time Spent (min) 70
[2025-05-17] MEDS: pantoprazole 40 mg SDV IVP (13:48)
[2025-05-17 13:51] LABS: Ammonia 11 umol/L (11-51)
[2025-05-17 14:01] LABS: Magnesium 2.1 mg/dL (1.7-2.3)
[2025-05-17 14:02] LABS: Cholesterol 242 mg/dL (0-200); HDL Cholesterol 116 mg/dL (60-100); Triglycerides 96 mg/dL (0-150)
--- NOTE | 2025-05-17 17:06 | CTR_ITS ---
PROCEDURE INFORMATION: Exam: CTA Head With Contrast, Arteriography Exam date and time: 05/17/2025 6:13 PM Age: 70 years old Clinical indication: Injury or trauma; Blunt trauma; Cognitive deficit; Altered mental status; Patient sustained a fall with head strike on concrete earlier this morning and has been having increasing lethargy and unresponsiveness. ; Additional info: AMS TECHNIQUE: Imaging protocol: Computed tomographic angiography of the head with contrast. Exam focused on the arteries. 3D rendering (Not supervised by radiologist): MIP and/or 3D reconstructed images were created by the technologist. Radiation optimization: All CT scans at this facility use at least one of these dose optimization techniques: automated exposure control; mA and/or kV adjustment per patient size (includes targeted exams where dose is matched to clinical indication); or iterative reconstruction. Contrast material: OMNI 350; Contrast volume: 100 ml; Contrast route: INTRAVENOUS (IV); COMPARISON: CT head wo con* [id number] 05/17/2025 10:54 AM RADIATION DOSE METRICS: Total DLP (mGy-cm): 350.51 FINDINGS: ANTERIOR CIRCULATION: Right internal carotid artery: Intracranial segment is patent with no significant stenosis. No aneurysm. Right middle cerebral artery: No occlusion or significant stenosis. No aneurysm. Right anterior cerebral artery: No occlusion or significant stenosis. No aneurysm. Left internal carotid artery: Intracranial segment is patent with no significant stenosis. No aneurysm. Left middle cerebral artery: No occlusion or significant stenosis. No aneurysm. Left anterior cerebral artery: No occlusion or significant stenosis. No aneurysm. POSTERIOR CIRCULATION: Right vertebral artery: No occlusion or significant stenosis. No aneurysm. Left vertebral artery: No occlusion or significant stenosis. No aneurysm. Basilar artery: No occlusion or significant stenosis. No aneurysm. Right posterior cerebral artery: Small P1 segment on the right. The right posterior cerebral artery predominantly fed by communicating artery from the right internal carotid artery. No occlusion or significant stenosis. No aneurysm. Left posterior cerebral artery: No occlusion or significant stenosis. No aneurysm. Brain: Mild atrophic changes. No definite mass, mass effect, or midline shift. Cerebral ventricles: No ventriculomegaly. Bones/joints: Mildly depressed fracture right nasal bone. No overlying soft tissue swelling so this may be old. This should be correlated clinically. Bony calvarium intact. Paranasal sinuses: Moderate amount of fluid right sphenoid air cell. Slight mucosal thickening lateral wall right maxillary sinus. Soft tissues: Probable contusion right parotid gland and overlying soft tissue. Diffuse hematoma right scalp, left lateral and left posterosuperior scalp. Air in the soft tissues over the left posterolateral scalp consistent with penetrating injury. PROCEDURE INFORMATION: Exam: CTA Neck With Contrast Exam date and time: 05/17/2025 6:13 PM Age: 70 years old Clinical indication: Injury or trauma; Blunt trauma; Cognitive deficit; Altered mental status; Patient sustained a fall with head strike on concrete earlier this morning and has been having increasing lethargy and unresponsiveness. ; Additional info: AMS TECHNIQUE: Imaging protocol: Computed tomographic angiography of the neck with contrast. Exam focused on the cervical segments of the vasculature. 3D rendering (Not supervised by radiologist): MIP and/or 3D reconstructed images were created by the technologist. Radiation optimization: All CT scans at this facility use at least one of these dose optimization techniques: automated exposure control; mA and/or kV adjustment per patient size (includes targeted exams where dose is matched to clinical indication); or iterative reconstruction. Contrast material: OMNI 350; Contrast volume: 100 ml; Contrast route: INTRAVENOUS (IV); COMPARISON: PT PET skull to thigh INIT [id number] 10/11/2023 1:42 PM RADIATION DOSE METRICS: Total DLP (mGy-cm): 350.51 FINDINGS: Right common carotid artery: No stenosis. No dissection or occlusion. Right internal carotid artery: No stenosis of the extracranial segment. No dissection or occlusion. Right external carotid artery: No occlusion or stenosis of the origin. Left common carotid artery: No stenosis. No dissection or occlusion. Left internal carotid artery: No stenosis of the extracranial segment. No dissection or occlusion. Left external carotid artery: No occlusion or stenosis of the origin. Right vertebral artery: No stenosis. No dissection or occlusion. Left vertebral artery: No stenosis. No dissection or occlusion. Soft tissues: No mass or significant adenopathy evident. Upper lungs: Probable pleural-parenchymal scarring right apex. This is unchanged from PET-CT of 10/11/2023 and shows no increased uptake at that time.. Bones/joints: Degenerative changes most marked between the anterior arch of C1 and odontoid process C2, C5-C6 disc space level, mid facet joints. Mild anterolisthesis of the C4 with respect to C5 appears to be on a degenerative basis. No spinal stenosis. CT/CT angio headneck* [id number] IMPRESSION: 1. No large vessel stenosis or occlusion. 2. No acute appearing intracranial abnormality. 3. Diffuse scalp hematoma. Probably contusion of the right parotid gland and overlying soft tissues. 4. Moderate amount of fluid in the sphenoid sinus. IMPRESSION: 1. No stenosis or occlusion. 2. Degenerative changes cervical spine. DEXA REFERENCES: NASCET CRITERIA. The degree of stenosis in the cervical segment of the internal carotid artery is based on NASCET criteria. Normal is no stenosis. Mild is less than 50% stenosis. Moderate is 50-69% stenosis. Severe is 70% to 99% stenosis. Total occlusion is no detectable patent lumen.
--- NOTE | 2025-05-17 18:07 | PM.MISC ---
Miscellaneous Note Note: Watch patient status - Patient sustained fall and head injury. CT unremarkable with exception of scalp hematoma. Altered mentation, pin point pupils, obtunded at times. 2L NC. Needed neuro recommendations > reached out to [facility] Neurology. CTA stat to rule out large vessel occlusion vs. baclofen or another medication overdose. MRI pending. ---- Tramadol and Fentanyl levels pending. Giving Narcan. After results consider loading with Keppra. If status does not improve after Narcan and/or Keppra call [facility] back for possible Neuro ICU transfer.
[2025-05-17] MEDS: iohexol 350 mg/mL 500 mL Btl (per mL) IV (18:27)
--- NOTE | 2025-05-17 20:08 | P.MISC_ITS ---
Miscellaneous Note Note: On assessment patient obtunded, without rigidity, flaccid, with corneal reflex, gag reflex, spontaneous respirations, saturating well on 2 L nasal cannula. Without any tremors, myoclonus. Not waking up to painful stimuli. Per discussion with her daughter consideration of differential diagnosis including consideration of possible basilar artery CVA, further assessment to be obtained with CT angiogram, although otherwise outside window for TNK with last known normal last night about midnight, however, with consideration of endovascular intervention, further consideration with pinpoint pupils noted on exam, possible medication, did receive morphine but at 10 AM, and that should be wearing off, however, consideration of administration of Narcan discussed. Daughter does report that patient at some point had taken somebody else's tramadol. Additionally discussed that she is on baclofen which may have adverse effects due to either the medication itself or withdrawal. On review of outside prescription she had just gotten baclofen prescription on 04/30. Discussed with our lab, it is not clear whether tramadol may show up on the UDS under opioids, requested tramadol level, fentanyl level. Further consideration of possible seizure, depending on further findings and condition consideration of loading with Keppra, consideration of further transfer for assessment with EEG. Continuous pulse oximetry requested. Otherwise holding of potential offending medications, as well as continued IV hydration due to reported, on third of episodes occurring during dehydration and noted some dehydration currently. Otherwise without significant electrolyte abnormalities noted on chemistry, without signs of sepsis apart from leukocytosis, which may be secondary to scalp hematoma, with otherwise unremarkable chest imaging, UA, etc. No hyper or hypokalemia to suggest periodic paralysis. Reviewed prior workup which was quite extensive including neurology follow-up, MRI brain, with noted prior lacunar left thalamic infarct, otherwise white matter chronic disease somewhat out of proportion to her age, small vessel disease around andres, but otherwise unremarkable MRI. Prior unremarkable outpatient EEG. Shortly after return from CTA patient is waking up, conversing with nurse, sea ing her her name.
[2025-05-18] VITALS (11 sets, daily range): BP systolic 144–171; BP diastolic 60–85; PULSE 78–94; RESP 16–17; TEMP 36.4–37.1; O2SAT 95–100
[2025-05-18] MEDS: ondansetron 2 mg/ML SDV 2 mL 4 MG IVP ×2 (00:11→12:32)
--- NOTE | 2025-05-18 01:03 | PC.NURSE ---
05/17/2025@2100. pt alert(aaox1), pt became agitated and tried to get out of the bed/pulling the lines. MD was notified and assessed at the bedside.
[2025-05-18 05:04] LABS: Alanine Aminotransferase 12 U/L (0-33); Albumin Level 4.0 g/dL (3.5-5.2); Alkaline Phosphatase 77 U/L (35-105); Anion Gap 11.9 (5-19); Aspartate Amino Transferase 21 U/L (0-32); Blood Urea Nitrogen 17 mg/dL (8-23); Calcium 9.4 mg/dL (8.5-10.5); Carbon Dioxide 29 mmol/L (22-29); Chloride 102 mmol/L (98-107); Globulin 3.3 g/dL (1.3-4.6); Glucose 129 mg/dL (65-115); Osmolality Calculated 291 mOsm/kg (285-295); Potassium 3.9 mmol/L (3.5-5.1); Sodium 139 mmol/L (136-145); Total Protein 7.3 g/dL (6.6-8.7)
[2025-05-18] MEDS: calcium carb-vit d 600mg/400unit 1 Tablet 1 EACH PO (06:20)
[2025-05-18] MEDS: ATORVASTATIN 20 MG TABLET PO (06:21)
--- NOTE | 2025-05-18 06:30 | PC.NURSE ---
Patient stated this morning while nurse was administering medications that she could not take baclofen because she took two at home thanksgiving night and fell and then crawled to the door where ems was called.
--- NOTE | 2025-05-18 08:00 | ECG_ITS ---
[facility] Date: 2025-05-18 Pat Name: Melanie Ko Department: Room: 268 Gender: Female Audit Mgr: : [id number] Requested By: Subhash Goodwin Order Number: [id number] Reading MD: Niall Cardona M.D. Measurements Intervals [place] Rate: 83 P: 63 AL: 168 QRS: 28 QRSD: 84 T: 42 QT: 365 QTc: 431 Interpretive Statements SINUS RHYTHM Compared to ECG 03/03/2025 09:16:16 No significant changes Electronically Signed On 05-18-2025 17:17:10 ASSISTANT PRODUCE MANAGER by Niall Cardona M.D. [email or web address]
[2025-05-18 08:50] LABS: Hematocrit 30.9 % (36-47); Hemoglobin 9.70 g/dL (11.27-16.99); Mean Corpuscular HGB Conc 31.4 g/dL (30-55); Mean Corpuscular Hemoglobin 28.4 pg (27-33); Mean Corpuscular Volume 90.4 fl (85-98); Nucleated Red Blood Cells % 0 %; Platelet Count 206 10^3/cmm (157-399); Red Blood Count 3.42 10^6/uL (3.85-5.65); White Blood Count 8.03 10^3/uL (3.29-11.43)
[2025-05-18 09:14] LABS: Alanine Aminotransferase 12 U/L (0-33); Albumin Level 4.0 g/dL (3.5-5.2); Alkaline Phosphatase 75 U/L (35-105); Anion Gap 12.9 (5-19); Aspartate Amino Transferase 20 U/L (0-32); Blood Urea Nitrogen 16 mg/dL (8-23); Calcium 9.2 mg/dL (8.5-10.5); Carbon Dioxide 30 mmol/L (22-29); Chloride 100 mmol/L (98-107); Globulin 3.1 g/dL (1.3-4.6); Glucose 120 mg/dL (65-115); Osmolality Calculated 290 mOsm/kg (285-295); Potassium 3.9 mmol/L (3.5-5.1); Sodium 139 mmol/L (136-145); Total Protein 7.1 g/dL (6.6-8.7)
[2025-05-18] MEDS: pantoprazole 40 mg SDV IVP (12:31)
--- NOTE | 2025-05-18 13:30 | PC.NURSE ---
Patient's family complained that patient was not being tended to appropriately. This nurse and HARINI Serna had pulled patient up in the bed at approximately [id number]. Patient stated she was comfortable and did not need anything at this time other than something to drink. Patient stated she wanted some orange juice, in which this nurse immediately retrieved for the patient. Patient's daughter and another male visitor was at the bedside. Bed alarm was turned on. While this nurse was in with another patient, this nurse was notified that the patient was in pain about 15 minutes later, while in with another patient. This nurse stated I would be there to give the patient pain medication as soon as I finished with the other patient. Patient's visitor came to the desk and stated the patient is still in pain and care is not being met. Patient's visitor had turned on the call light a few minutes later and stated she really needs pain medication and they were upset that no one had came in to check on the patient. When this nurse came to see patient, visitors were standing outside the door and were upset that the patient had not been checked on or that the patient's head laceration had not been cleaned, and that the patient had blood on her pillowcase from her head laceration. This nurse apologized, that they had something just 15 minutes after leaving the room and was in another room with a patient. Patient's daughter was asking for a 1:1 sitter because she was going to have to leave for a little bit and it is only her and her dad available to take turns staying with the patient and she believed her dad was trying scoot out on staying with her and the patient needed 24 hour care. This nurse assured the patient's daughter that she will be receiving care round the clock while she was here and the other visitor stated, Yeah, well if it's 24 hour care, it took you 40 minutes to get back in here and give her medication. This nurse again apologized for the delay and that the patient is being tended to and that the patient's bed alarm is set and that the patient has her call light if she needs anything. The patient's daughter stated but she doesn't know when she needs anything or how to press the call button because she's confused. This nurse ensured the patient's daughter that someone would be regularly rounding on the patient. Visitors stepped out while this nurse and AHRINI Serna gave patient a sponge bath, changed her bed linens, and cleaned patient's head laceration. Patient's daughter and visitor came back and daughter was asking if she could run to [address] to get some shoes if the patient would be okay. This nurse ensured her that the patient would be taken care of and that nursing staff would run to her bed alarm if it went off and that the patient would be rounded on regularly. The patient's daughter stated that the other visitor would be staying because the patient was too scared to stay by herself.
--- NOTE | 2025-05-18 19:40 | P.PN_ITS ---
Subjective 2 Subjective: She is awake and alert, she is able to tell me she is in the hospital, I was able to name her , however, not oriented to year. Does not have recollection from the events of yesterday morning. Some of the episodes are brief and not engaged, glancing over the subject matter. states she has not been back to her usual self yet. Vitals/I&O/Wt Last Vital Signs Temp 97.8 F 05/18/25 15:50 Pulse 88 05/18/25 15:50 Resp 17 05/18/25 15:50 BP 162/84 05/18/25 15:50 Pulse Ox 99 05/18/25 15:50 O2 Del Method Nasal Cannula 05/18/25 15:50 O2 Flow Rate 1 05/18/25 15:50 05/18/25 05/18/25 05/18/25 06:59 14:59 22:59 Intake Total 1240 / 1240 Output Total 200 / 200 600 / 600 Balance 1040 / 1040 -600 / -600 Weight last 48 hrs Weight 56.699 kg Weight 56.699 kg Weight 56.699 kg Physical Exam 2 Narrative: at bedside Const: COMMON NORMALS: alert; negative for patient oriented x3 GENERAL APPEARANCE: cooperative HENMT: COMMON NORMALS: oropharynx normal Neck/C-Spine: COMMON NORMALS: no JVD Resp: COMMON NORMALS: normal respiratory effort and clear to auscultation bilaterally AUSCULTATION: clear to auscultation bilaterally Cardio: COMMON NORMALS: no JVD, regular rhythm, S1 normal heart sound present, S2 normal heart sound present and No murmurs present (Cardio) RHYTHM: regular rhythm HEART SOUNDS: S1 normal heart sound present and S2 normal heart sound present GI: COMMON NORMALS: Normal to inspection, nondistended, normoactive bowel sounds present, Soft to palpation and non-tender PALPATION: Yes Soft to palpation Extremity: COMMON NORMALS: no joint enlargement and no pedal edema Neuro: COMMON NORMALS: moves all extremities; negative for patient oriented x3 SENSORIUM/ORIENTATION: Yes alert OTHER: She is awake alert, appropriately tracking, no difficulty in following directions. However, giving somewhat incomplete/wincing answers to some questions. Lessening over the issues at hand. Not entirely oriented. Without tremor or rigidity. Skin: COMMON NORMALS: no rashes or lesions noted GENERAL SKIN EXAM: no rashes or lesions noted Data 05/18/25 08:41 05/18/25 08:41 A&P Assessment and plan 1. Altered mental status: Acute encephalopathy, possibly toxic, with obtundation yesterday, further assessed with CT angiogram of the head, discussed results with her and her , without noted large vessel occlusion. Some sinusitis is noted incidentally. Seizure not entirely excluded, although without obvious seizure activity. Last night she had woken up, was able to give her name, respond to questions, overall encephalopathy continues to improve, although is not back to baseline yet. MRI could not be obtained on the weekend. reports history of multiple sclerosis and her family members including mother. On review of prior MRI from July without any plaques on the study with and without contrast. She remains afebrile, without leukocytosis, blood culture remaining negative, without significant abnormality on chemistry. Mildly hypertensive. Her medications have been brought over, and baclofen has been counted, and appears she did not take extremity occasions if she was spacing them out, however, baclofen does not appear to be placed into her medication boxes for daily distribution. Per reports she has been taking it as recommended 20 mg 3 times daily. Discussed with her and her daughter who joined during the visit, both risk of adverse effects from baclofen, as well as risk of withdrawal symptoms if discontinued after prolonged use. Consider resumption at lower dose tomorrow and discussed weaning off and discontinuing the medication long-term given during occurrence of the prior episode of mental status change she was on baclofen at that time as well. Tramadol blood test has been sent out as has been fentanyl. She does have a bottle of Benadryl in her medication as well which she has been taking for sleep reportedly quite regularly, discussed also concern for adverse effects/anticholinergic effects with Benadryl. Due to severity of current episode being worse than priors, plan is to repeat MRI, and follow-up with neurology as outpatient for further reassessment of recurrent episodes. Updated [facility], transfer request canceled. Resume baclofen 10 mg twice daily, monitor for risk of recurrence of toxicity symptoms, monitor for risk of withdrawal. As discussed with patient and family. Became dizzy with ambulation, vomited. Will check orthostatics. PT assessment. Fall precautions. SNF considered, but patient's family adamant would not want her going to SNF. 2. Fall: Repeat CBC, chemistry. CT head; extensive scalp hematoma, without fracture or acute intercranial abnormality. With bruising around the right side eye and neck X-ray pelvis; no displaced pelvic fracture on limited frontal view CXR; no acute cardiopulmonary abnormality CT cervical spine; no acute fracture, anterolithiasis of thesis C3-C4, C4-C5, this is similar to MRI from 04/2020, likely degenerative PT/OT prior to discharge Fall risk precautions 3. Laceration of head: CT head; extensive scalp hematoma, without fracture or acute intercranial abnormality Head laceration wound care 4. Coronary artery disease: 2022 2D Echo; unremarkable 5. History of hypertension: BP 142/78 BP monitoring 6. HLD (hyperlipidemia): Continue home rosuvastatin Lipid panel pending 7. Hypothyroidism: Continue home levothyroxine PDMP PDMP Reviewed: Not Reviewed Attestations 2 Medical Necessity Statement*: Continue admission for assessment of management of recurrent episodes of acute encephalopathy with recurrence of severe episode, further workup with MRI, monitoring for recurrence, resumption of medication to prevent withdrawal, physical therapy assessment and disposition planning. Diagnoses Altered mental status R41.82 Fall W19.XXXA Laceration of head S01.91XA Coronary artery disease I25.10 History of hypertension Z86.79 HLD (hyperlipidemia) E78.5 Hypothyroidism E03.9
[2025-05-19 01:00] VITALS: BP 162/88; PULSE 96; RESP 16; TEMP 37.1; O2SAT 94
[2025-05-19] MEDS: ondansetron 2 mg/ML SDV 2 mL 4 MG IVP (02:47)
[2025-05-19 03:58] LABS: Hematocrit 31.0 % (36-47); Hemoglobin 9.80 g/dL (11.27-16.99); Mean Corpuscular HGB Conc 31.6 g/dL (30-55); Mean Corpuscular Hemoglobin 27.9 pg (27-33); Mean Corpuscular Volume 88.3 fl (85-98); Nucleated Red Blood Cells % 0 %; Platelet Count 204 10^3/cmm (157-399); Red Blood Count 3.51 10^6/uL (3.85-5.65); White Blood Count 8.51 10^3/uL (3.29-11.43)
[2025-05-19 04:22] LABS: Alanine Aminotransferase 12 U/L (0-33); Albumin Level 4.0 g/dL (3.5-5.2); Alkaline Phosphatase 74 U/L (35-105); Anion Gap 15.8 (5-19); Aspartate Amino Transferase 18 U/L (0-32); Blood Urea Nitrogen 17 mg/dL (8-23); Calcium 10.0 mg/dL (8.5-10.5); Carbon Dioxide 32 mmol/L (22-29); Chloride 99 mmol/L (98-107); Globulin 3.1 g/dL (1.3-4.6); Glucose 88 mg/dL (65-115); Osmolality Calculated 297 mOsm/kg (285-295); Potassium 3.8 mmol/L (3.5-5.1); Sodium 143 mmol/L (136-145); Total Protein 7.1 g/dL (6.6-8.7)
[2025-05-19 05:37] VITALS: BP 152/85; PULSE 94; RESP 17; TEMP 36.6; O2SAT 97
[2025-05-19] MEDS: calcium carb-vit d 600mg/400unit 1 Tablet 1 EACH PO (06:17)
[2025-05-19] MEDS: ATORVASTATIN 20 MG TABLET PO (06:17)
[2025-05-19 06:44] VITALS: PULSE 93
[2025-05-19 08:00] VITALS: BP 172/83; PULSE 93; RESP 18; TEMP 36.7; O2SAT 98
--- NOTE | 2025-05-19 10:00 | PM.DCS ---
Discharge Providers Date of Admission: 05/17/25 14:19 Date of Discharge: May 19, 2025 Attending Provider at Admission: Subhash Goodwin Attending Provider at Discharge: Subhash Goodwin Primary Care Provider: Mony Mariscal MD Diagnoses at Discharge Discharge Diagnosis 1. Altered mental status: 2. Fall: 3. Laceration of head: 4. Coronary artery disease: 5. History of hypertension: 6. HLD (hyperlipidemia): 7. Hypothyroidism: Reason for Visit Reason for Visit: fall - head pain Brief History: Melanie Ko is a 70 year old female with pmhx of HTN, CAD, UTI, HLD, mild dementia, staring episodes, bleeding ulcer, fractures, bilateral hand numbness, opiate overdose, former tobacco and AMS/behavioral health history presenting with complaints of fall. Today, patient fell outside and suffered head injury. She was able to knock on her neighbors door for help. EMS was called and she was transported to [facility] ED for further assistance. Of note, patient has mild dementia with history of hospitalizations for confusion, dehydration, and altered mentation with short term memory loss. In the ED, BP 142/78, HR 85, RR 16, T97.8, O2 saturation 91% on room air. WBC 15.33, Hgb 10.7, PLT 2 1. PT 11.5, INR 0.78. BUN 27, creatinine 1.0. Glucose 116. AST/ALT WNL. Urinalysis unremarkable. Toxicology negative. CT head; extensive scalp hematoma, without fracture or acute intercranial abnormality. X-ray pelvis; no displaced pelvic fracture on limited frontal view. CXR; no acute cardiopulmonary abnormality. CT cervical spine; no acute fracture, anterolithiasis of thesis C3-C4, C4-C5, this is similar to MRI from 04/2020, likely degenerative. Will admit to the hospitalist service for further evaluation and treatment. Hospital Course Hospital Course She was admitted for further assessment and management, with finding of obtundation, flaccid on exam, drop test positive, breathing spontaneously, with corneal and gag reflex intact, however, not responding to pain, protecting airway, underwent further assessment with CT angiogram head and neck, without finding of basilar artery thrombus or other intracranial vascular abnormality, incidentally noted to have some sinusitis. Review of prior workup of altered mental status episodes revealed prior MRI of the brain with noted lacunar stroke of left thalamus, microvascular disease around the andres, chronic white matter disease more than expected for age, mild hippocampal atrophy. Prior workup with EEG was unremarkable with follow-up with neurology as well as previously and currently unremarkable chemistry, previously normal B12, folic acid, methylmalonic acid. With patient's reporting history of multiple sclerosis and current episode being worse compared to prior on the patient's side of the family, MRI brain was ordered but could not be completed over the weekend. Pupils pinpoint, Narcan was to be attempted, however, patient woke up that evening, able to state her name, interact with nursing staff. Per discussion with her family, previously had taken some medication which was not hers (tramadol), tramadol level has been sent out as has been fentanyl and are pending. However, she denies taking additional medications. Continue to use of ventriculogram 3 times daily baclofen has been of concern as discussed with her and her family. She was on baclofen during prior episode as well. Baclofen tablets were counted, and there are not any missing, however, discussed potential toxicity with baclofen, as well as potential for withdrawal including altered mental status, seizure, etc. Held off baclofen transiently while in hospital, resumed at lower dose, so far she is tolerating well, as per discussion continue to taper down and off the medication. MRI could not be obtained during hospitalization due to holiday and weekend. Referrals given for outpatient study as well as follow-up with neurology for reassessment of recurrence and now worse than previous episode of altered mental status with flaccid obtundation, as well as follow-up for additional assessment of cognitive decline, possible dementia. Please follow-up the above as well as for continued healing and resolution of scalp hematoma. Physical therapy was not available, but she was able to ambulate with nursing staff, ambulation is safer with a walker which is ordered for her as well as home health. Physical Exam Narrative: at bedside Const: COMMON NORMALS: alert; negative for patient oriented x3 GENERAL APPEARANCE: cooperative HENMT: COMMON NORMALS: oropharynx normal OTHER: Scalp hematoma, bruising around the right eye, right neck. Neck/C-Spine: COMMON NORMALS: no JVD Resp: COMMON NORMALS: normal respiratory effort and clear to auscultation bilaterally AUSCULTATION: clear to auscultation bilaterally Cardio: COMMON NORMALS: no JVD, regular rhythm, S1 normal heart sound present, S2 normal heart sound present and No murmurs present (Cardio) RHYTHM: regular rhythm HEART SOUNDS: S1 normal heart sound present and S2 normal heart sound present GI: COMMON NORMALS: Normal to inspection, nondistended, normoactive bowel sounds present, Soft to palpation and non-tender PALPATION: Yes Soft to palpation Extremity: COMMON NORMALS: no joint enlargement and no pedal edema Neuro: COMMON NORMALS: moves all extremities; negative for patient oriented x3 SENSORIUM/ORIENTATION: Yes alert OTHER: She is awake alert, appropriately tracking, no difficulty in following directions. No facial droop, no dysarthria or aphasia. Visual miner full to confrontation, without visual extinction. FNF normal. Sensory exam symmetrical to light touch, no sensory extinction, no extremity drift. No rigidity. Skin: COMMON NORMALS: no rashes or lesions noted GENERAL SKIN EXAM: no rashes or lesions noted Discharge Data Studies Completed and Pending Completed Studies During Hospitalization Category Date Time Status CT cervical spin wo con* [id number] Stat Cat Scan 05/17/25 10:[address] head wo con* [id number] Stat Cat Scan 05/17/25 10:03 Completed CTA head neck [CT angio headneck* [id number]] Stat Cat Scan 05/17/25 17:06 Completed XR chest 1V portable [id number] Stat Exams 05/17/25 10:03 Completed XR pelvis 1-2V* [id number] Stat Exams 05/17/25 10:03 Completed Pending at discharge Category Date Time Status Acetyl Fentanyl QL Blood Routine Lab 05/17/25 17:44 Received Tramadol Serum/Plasma Routine Lab 05/17/25 17:44 Received MR head wo/w con [id number] Stat MRI 05/17/25 14:25 Ordered Radiology Impressions Cervical Spine CT 05/17/25 10:03 IMPRESSION: No acute fracture. Anterolisthesis C3-C4, C4-C5. This is similar to MRI 05/06/2020, likely degenerative Chest X-Ray 05/17/25 10:03 IMPRESSION: No acute cardiopulmonary abnormality. Head CT 05/17/25 10:03 IMPRESSION: Extensive scalp hematoma, without fracture or acute intracranial abnormality. Pelvis X-Ray 05/17/25 10:03 IMPRESSION: No displaced pelvic fracture on limited frontal view. Head/Neck CTA 05/17/25 17:06 IMPRESSION: 1. No large vessel stenosis or occlusion. 2. No acute appearing intracranial abnormality. 3. Diffuse scalp hematoma. Probably contusion of the right parotid gland and overlying soft tissues. 4. Moderate amount of fluid in the sphenoid sinus. IMPRESSION: 1. No stenosis or occlusion. 2. Degenerative changes cervical spine. DEXA REFERENCES: NASCET CRITERIA. The degree of stenosis in the cervical segment of the internal carotid artery is based on NASCET criteria. Normal is no stenosis. Mild is less than 50% stenosis. Moderate is 50-69% stenosis. Severe is 70% to 99% stenosis. Total occlusion is no detectable patent lumen. Laboratory Results WBC 8.51 10^3/uL (3.29-11.43) 05/19/25 03:46 RBC 3.51 10^6/uL (3.85-5.65) L 05/19/25 03:46 Hgb 9.80 g/dL (11.27-16.99) L 05/19/25 03:46 Hct 31.0 % (36-47) L 05/19/25 03:46 MCV 88.3 fl (85-98) 05/19/25 03:46 MCH 27.9 pg (27-33) 05/19/25 03:46 MCHC 31.6 g/dL (30-55) 05/19/25 03:46 RDW 15.8 % (12.1-15.1) H 05/19/25 03:46 Plt Count 204 10^3/cmm (157-399) 05/19/25 03:46 MPV 11.6 fL (7.4-10.4) H 05/19/25 03:46 Neut % (Auto) 67.4 % 05/19/25 03:46 Lymph % (Auto) 18.9 % 05/19/25 03:46 [place] % (Auto) 11.3 % 05/19/25 03:46 Eos % (Auto) 0.8 % 05/19/25 03:46 Baso % (Auto) 1.4 % 05/19/25 03:46 Neut # (Auto) 5.73 10^3/uL (1.8-7.7) 05/19/25 03:46 Lymph # (Auto) 1.6 10^3/uL (0.8-4.8) 05/19/25 03:46 [place] # (Auto) 1.0 10^3/uL (0.2-0.9) H 05/19/25 03:46 Eos # (Auto) 0.1 10^3/uL (0.0-0.8) 05/19/25 03:46 Baso # (Auto) 0.1 10^3/uL (0.0-0.1) 05/19/25 03:46 Nucleated RBC % (auto) 0 % 05/19/25 03:46 Nucleated RBCs # 0.0 /100WBC 05/19/25 03:46 PT 11.50 SECONDS (12.1-14.9) L 05/17/25 10:25 INR 0.78 (0.8-1.2) L 05/17/25 10:25 Sodium 143 mmol/L (136-145) 05/19/25 03:46 Potassium 3.8 mmol/L (3.5-5.1) 05/19/25 03:46 Chloride 99 mmol/L (98-107) 05/19/25 03:46 Carbon Dioxide 32 mmol/L (22-29) H 05/19/25 03:46 Anion Gap 15.8 (5-19) 05/19/25 03:46 BUN 17 mg/dL (8-23) 05/19/25 03:46 Creatinine 0.7 mg/dL (0.5-0.9) 05/19/25 03:46 GFR Calculation 83.0 mL/min (90-130) L 05/19/25 03:46 Glucose 88 mg/dL (65-115) 05/19/25 03:46 Calculated Osmolality 297 mOsm/kg (285-295) H 05/19/25 03:46 Calcium 10.0 mg/dL (8.5-10.5) 05/19/25 03:46 Phosphorus 2.8 mg/dL (2.5-4.5) 05/17/25 10:25 Magnesium 2.1 mg/dL (1.7-2.3) 05/17/25 10:25 Total Bilirubin 0.3 mg/dL (0.15-1.2) 05/19/25 03:46 AST 18 U/L (0-32) 05/19/25 03:46 ALT 12 U/L (0-33) 05/19/25 03:46 Alkaline Phosphatase 74 U/L (35-105) 05/19/25 03:46 Ammonia 11 umol/L (11-51) 05/17/25 13:22 Total Protein 7.1 g/dL (6.6-8.7) 05/19/25 03:46 Albumin 4.0 g/dL (3.5-5.2) 05/19/25 03:46 Globulin 3.1 g/dL (1.3-4.6) 05/19/25 03:46 Triglycerides 96 mg/dL (0-150) 05/17/25 10:25 Cholesterol 242 mg/dL (0-200) H 05/17/25 10:25 LDL Cholesterol, Calc 107 mg/dL (50-129) 05/17/25 10:25 HDL Cholesterol 116 mg/dL (60-100) H 05/17/25 10:25 LDL/HDL Ratio 0.92 RATIO (0.00-3.22) 05/17/25 10:25 Cholesterol/HDL Ratio 2.09 mg/dL (0.0-4.40) 05/17/25 10:25 TSH 2.58 uIU/mL (0.27-4.20) 05/17/25 10:25 Urine Color Yellow (Yellow) 05/17/25 10:39 Urine Appearance Clear (CLEAR) 05/17/25 10:39 Urine pH 5.5 (5-7) 05/17/25 10:39 Ur Specific [place] 1.011 (1.005-1.030) 05/17/25 10:39 Urine Protein Negative (Negative) 05/17/25 10:39 Urine Glucose (UA) Negative (Normal) 05/17/25 10:39 Urine Ketones Negative (Negative) 05/17/25 10:39 Urine Blood Negative (Negative) 05/17/25 10:39 Urine Nitrate Negative (Negative) 05/17/25 10:39 Urine Bilirubin Negative (Negative) 05/17/25 10:39 Urine Urobilinogen 0.2 mg/dL (Negative) 05/17/25 10:39 Ur Leukocyte Esterase Negative (Negative) 05/17/25 10:39 Urine RBC 0-2 /hpf (0-2) 05/17/25 10:39 Urine WBC 0-5 /hpf (0-5) 05/17/25 10:39 Ur Squamous Epith Cells 0-5 /hpf (0-5) 05/17/25 10:39 Amorphous Sediment Not Reportable 05/17/25 10:39 Urine Bacteria None seen /hpf (NONE) 05/17/25 10:39 Hyaline Casts 1.65 /lpf 05/17/25 10:39 Urine Opiates Screen Negative ng/mL (Negative) 05/17/25 10:39 Ur Barbiturates Screen Negative ng/mL (Negative) 05/17/25 10:39 Ur Phencyclidine Scrn Negative ng/mL (Negative) 05/17/25 10:39 Ur Amphetamines Screen Negative ng/mL (Negative) 05/17/25 10:39 U Benzodiazepines Scrn Negative ng/mL (Negative) 05/17/25 10:39 Urine Cocaine Screen Negative ng/mL (Negative) 05/17/25 10:39 U Marijuana (THC) Screen Negative ng/mL (Negative) 05/17/25 10:39 Ethyl Alcohol < 10 mg/dL (0-10) 05/17/25 10:25 Vitals Last Vital Signs Temp 98.1 F 05/19/25 08:00 Pulse 93 05/19/25 08:00 Resp 18 05/19/25 08:00 BP 172/83 05/19/25 08:00 Pulse Ox 98 05/19/25 08:00 O2 Del Method Nasal Cannula 05/18/25 15:50 O2 Flow Rate 1 05/18/25 15:50 Discharge Plan Discharge Patient Disposition: Home Health Service Condition: Stable Prescriptions: Continued levothyroxine 50 mcg tablet 50 mcg PO ONCE trazodone 50 mg tablet 50 mg PO BEDTIME duloxetine 60 mg capsule,delayed release(DR/EC) 60 mg PO DAILY rosuvastatin [Crestor] 5 mg tablet 5 mg PO 1XD calcium carbonate-vitamin D3 600 mg-10 mcg (400 unit) tablet 600 tab PO DAILY Changed baclofen 20 mg tablet See Rx Instructions .ROUTE .COMPLEX Qty: 1 0RF Rx Instructions: Taper off: 1/2 tab twice daily for 4 days, then 1/2 tab daily for 4 days Discharge Order = DC NOW: Discharge Order (Routine); Ordered 05/19/25 Ordered By: Subhash Goodwin Other Ambulatory Orders: DME: Walker (Order) Location: None Selected Ordered By: Subhash Goodwin MR head wo/w con [id number] (Routine) Timeframe: 2 Days Facility: [facility] - Location: Radiology Ordered By: Subhash Goodwin Referrals: [facility] [place] [Outside] Cee Cannon MD [Physician, Neurology] - 3 weeks Referral Note: We have notified your physician's clinic of the need for a follow-up appointment to be scheduled. If you have not heard from them within the next 2 business days, please call them directly. Mony Mariscal MD [Primary Care Provider, Internal Medicine] - 4-7 days Referral Note: You will need to call your primary care provider Tuesday to make a hospital discharge follow up in 4-7 days. Discharge Diet: Advance as tolerated and Cardiac Patient Instructions: Fall Prevention (GEN), Disorders of Consciousness (GEN), Head Laceration (ED), Opioid Safety, Patient Portal & Rashawn Instructions Activity Restrictions/Additional Instructions: Please wean down and off of baclofen per taper instruction, continue taking half a pill twice daily for 4 days, then decrease to half a pill daily for 4 days, then stop and discontinue baclofen due to concern for toxicity/adverse effects affecting her mental status, as well as risk of withdrawal with long-term use. Follow-up with neurology for further assessment after MRI brain of recurrent altered mental status episodes. As well as for assessment of possible cognitive decline. Follow-up with your primary doctor regarding the above as well as for reassessment of continued healing and resolution of scalp hematoma. Discharge Attestations Time Spent in Discharge Care*: greater than 30 min Quality Metrics Clinical Quality Measures [ No reported AMI, CVA or VTE this stay] Coding Level of Care Code 61718 Total time (in minutes) for Discharge: 50 Diagnoses Altered mental status R41.82 Fall W19.XXXA Laceration of head S01.91XA Coronary artery disease I25.10 History of hypertension Z86.79 HLD (hyperlipidemia) E78.5 Hypothyroidism E03.9
[2025-05-19 11:42] VITALS: BP 148/80; PULSE 92; RESP 16; TEMP 36.6; O2SAT 97
--- NOTE | 2025-05-19 12:46 | PC.NURSE ---
Discharge paperwork discussed with patient and spouse. Patient's stated they know they had previously denied home health, but would now like to opt for Home Health to see them. This nurse spoke with HASEEB [employer] reclamation systems operator and she stated she would give them a call. Patient and spouse notified. Patient's walker was delivered. IV line removed. Patient was taken to main entrance via wheelchair with all belongings at 1245.
[2025-05-19 12:52] VITALS: BP 148/80; PULSE 92; RESP 16; TEMP 36.7; O2SAT 97
--- OUTSIDE RECORDS SUMMARY | 2025-05-22 03:44 | XMS_ITS | Clinical Summary ---
Author Organization [facility] Address [address] Attn: [place] [id number] Care Team Providers Care Sample Maker Hand Name Role Phone Unavailable Primary Care Provider Unavailabl e Encounters Date Type Department Care Team Description 04/02/2025 External Device Data [facility]STRACTION Provider, Abstract 03/28/2025 Telephone [facility] [address] [place] [address] Danny Lyman MD Medical Records (Medical Records Request faxed to 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
[2025-05-22 06:11] LABS: Acetyl Fentanyl QL Blood Negative
== END 2025-05-19 12:45 | disposition home health service (06) ==
LOC: ER 13:02 → MEDSURG 15:09
PROVIDERS: Clinical Nurse Specialist Acute Care; Admitting Provider Internal Medicine; Emergency Provider Emergency Medicine; PCP Internal Medicine; Visit Provider Internal Medicine
DX: R41.82 Altered mental status, unspecified (principal); S01.91XA Laceration without foreign body of unspecified part of head, initial encounter; W19.XXXA Unspecified fall, initial encounter; I25.10 Atherosclerotic heart disease of native coronary artery without angina pectoris; I10 Essential (primary) hypertension; E78.5 Hyperlipidemia, unspecified; E03.9 Hypothyroidism, unspecified; F03.A0 Unspecified dementia, mild, without behavioral disturbance, psychotic disturbance, mood disturbance, and anxiety; Z87.891 Personal history of nicotine dependence; F11.10 Opioid abuse, uncomplicated
CPT/HCPCS: 36415; 70450; 70496; 70498; 71045; 72125; 72170; 80048; 80053; 80061; 80306; 80307; 80354; 80373; 81001; 82140; 83735; 84100; 84443; 85025; 85610; 93005; 96374; 96375; 99285; G0378; J2270; J2405; J2470; J7030; J9999

== ENCOUNTER 2025-05-24 07:41 | Outpatient (CLI) | payer MEDICARE, SELFPAY ==
--- NOTE | 2025-05-24 08:00 | MR_ITS ---
WS: [id number] MRI BRAIN WITH AND WITHOUT CONTRAST HISTORY: episodes of AMS, episode of obtundation COMPARISON: 08/14/2024, CT head 05/17/2025 TECHNIQUE: Multiplanar imaging performed through the brain with MultiHance 12 ml's IV. No acute infarcts. Diffusion imaging is normal. Extensive T2 and FLAIR signal hyperintensities throughout the supratentorial brain. There is patchy and confluent signal abnormality surrounding the ventricles extending into the subcortical white matter. There does appear to been a progression since 08/14. Additional bilateral increased T2 signal in the andres. Prior lacunar infarct in the LEFT thalamus. No hemorrhage. Ventricles and extra-axial spaces are normal. Clivus and pituitary gland are normal. Visualized posterior fossa and brainstem are also normal. Postcontrast images are negative for masses or vascular malformations. Dural venous sinuses are normal. Paranasal sinuses: Moderate mucoperiosteal disease in the RIGHT sphenoid sinus. No air-fluid levels. Mastoid air cells: Normal. Calvarium and scalp: Previously described scalp hematoma by CT is improving. There is a small defect in the posterior high LEFT parietal scalp which is probably a suture related to the laceration. MR/MR head wo/w con [id number] IMPRESSION: 1. Normal diffusion imaging. No acute infarct. 2. No enhancing masses or vascular malformations. 3. Extensive T2 and FLAIR signal hyperintensities in the supratentorial white matter which have progressed since 08/14/2024. Most likely related to small vess el disease. 4. Additional small vessel changes bilaterally in the andres. 5. Remote lacunar infarct LEFT thalamus. 6. RIGHT sphenoid sinus disease. 7. No acute intracranial hemorrhage.
[2025-05-24] MEDS: gadobenate dimeglumine 20 mL vial IV (08:51)
== END 2025-05-24 07:42 | disposition home or self-care (01) ==
LOC: RAD 07:45
PROVIDERS: PCP Internal Medicine; Visit Provider Internal Medicine
DX: R40.4 Transient alteration of awareness (principal)
CPT/HCPCS: 70553

== ENCOUNTER 2025-05-31 17:01 | Emergency (ER) | payer MEDICARE, SELFPAY ==
--- OUTSIDE RECORDS SUMMARY | 2025-05-31 17:06 | XMS_ITS | Clinical Summary ---
Author Organization [facility] Address [address] Attn: [place] [address] Care Team Providers Care Institutional Aide Name Role Phone Unavailable Primary Care Provider Unavailabl e Encounters Date Type Department Care Team Description 04/02/2025 External Device Data [facility] ABSTRACTION Provider, Abstract 03/28/2025 Telephone [facility] Ambulatory Quality [address] [place] [address] Danny Lyman MD Medical Records (Medical Records Request faxed to [facility] external provider for latest known Blood Pressure Test Date and Result) from Last 3 Months Social History Tobacco Use Types Packs/Day Years Used Date Smoking Tobacco: Never Assessed Comments Unknown Sex and Gender Information Value Date Recorded Sex Assigned at Not on file 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
--- OUTSIDE RECORDS SUMMARY | 2025-05-31 17:07 | XMS_ITS | Patient Health Record ---
Author Organization [facility] Address [address] [place] [address] Care Team Providers Care Director Broadcast Name Role Phone DR. 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.211) Active confirmed Plan Of Treatment No Information Insurance Providers Payer Name Payer Address Payer Phone Subscriber Number Group Number Insured Name Patient Relationship to Insured Coverage Start Date Coverage End Date [employer] Medicare Replacement [address] [address] [place] [address] [id number] DAISHA FIELDS Self - patient is the insured Medical (General) History Medical History History ICD Code pneumonia arathritis anemia bladder infections blood plasma transfusion Surgical History Surgery Date(Month/Year) Cauterize Ulcer 2012 Rotaor cuff 2023 Hospitalization History Reason Date(Month/Year) See Surgical HX
[2025-05-31 17:09] VITALS: BP 160/87; PULSE 98; RESP 15; TEMP 36.4; O2SAT 97; BMI 21.2
--- NOTE | 2025-05-31 17:30 | XRR_ITS ---
PROCEDURE INFORMATION: Exam: XR Chest Exam date and time: 05/31/2025 5:38 PM Age: 70 years old Clinical indication: Tachypnea and other: Metabolic encephalopathy TECHNIQUE: Imaging protocol: Radiologic exam of the chest. Views: 1 view. COMPARISON: CR (CHEST, ) 05/17/2025 10:09 AM FINDINGS: Lungs: Unremarkable. No consolidation. Pleural spaces: Unremarkable. No pleural effusion. No pneumothorax. Heart/Mediastinum: Unremarkable. No cardiomegaly. Vasculature: Aortic atherosclerosis. Bones/joints: Unremarkable. XR/XR chest 1V portable [id number] IMPRESSION: No definite acute findings.
--- NOTE | 2025-05-31 17:31 | ECG_ITS ---
bulletn. 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
[2025-05-31 18:23] LABS: Hematocrit 31.6 % (36-47); Hemoglobin 10.00 g/dL (11.27-16.99); Mean Corpuscular HGB Conc 31.6 g/dL (30-55); Mean Corpuscular Hemoglobin 28.4 pg (27-33); Mean Corpuscular Volume 89.8 fl (85-98); Nucleated Red Blood Cells % 0 %; Platelet Count 331 10^3/cmm (157-399); Red Blood Count 3.52 10^6/uL (3.85-5.65); White Blood Count 9.07 10^3/uL (3.29-11.43)
--- NOTE | 2025-05-31 18:25 | CTR_ITS ---
PROCEDURE INFORMATION: Exam: CT Head Without Contrast Exam date and time: 05/31/2025 7:16 PM Age: 70 years old Clinical indication: Injury or trauma; Blunt trauma (contusions or hematomas); Altered mental status/memory loss; Patient sustained a fall six days ago and family states worsening mentation with memory loss and hallucinations. ; Additional info: Fall with altered mentation TECHNIQUE: Imaging protocol: Computed tomography of the head without contrast. Radiation optimization: All CT scans at this facility use at least one of these dose optimization techniques: automated exposure control; mA and/or kV adjustment per patient size (includes targeted exams where dose is matched to clinical indication); or iterative reconstruction. COMPARISON: MR head wo/w con [id number] 05/24/2025 8:16 AM RADIATION DOSE METRICS: Total DLP (mGy-cm): 997.58 FINDINGS: Brain: Few lacunar foci in the basal ganglia, nonspecific although commonly chronic. Chronic small-vessel ischemic change. Cerebral ventricles: Involutional changes of the ventricles and sulci, mild. Paranasal sinuses: Visualized sinuses are unremarkable. No fluid levels. Mastoid air cells: Visualized mastoid air cells are well aerated. Bones: Unremarkable. No acute fracture. Soft tissues: Small scalp hematoma overlying the vertex. CT/CT head wo con* [id number] IMPRESSION: No acute intracranial abnormality.
--- NOTE | 2025-05-31 18:25 | CTR_ITS ---
PROCEDURE INFORMATION: Exam: CT Cervical Spine Without Contrast Exam date and time: 05/31/2025 7:19 PM Age: 70 years old Clinical indication: Injury or trauma; Blunt trauma; Patient sustained a fall six days ago and family states worsening mentation with memory loss and hallucinations. ; Additional info: Fall with altered mentation TECHNIQUE: Imaging protocol: Computed tomography of the cervical spine without contrast. Radiation optimization: All CT scans at this facility use at least one of these dose optimization techniques: automated exposure control; mA and/or kV adjustment per patient size (includes targeted exams where dose is matched to clinical indication); or iterative reconstruction. COMPARISON: CT cervical spin wo con* [id number] 05/17/2025 10:54 AM RADIATION DOSE METRICS: Total DLP (mGy-cm): 285.87 FINDINGS: Bones: No acute fracture. No significant disc bulge or herniation. No severe spinal canal stenosis. No significant neural foraminal narrowing. Mild degenerative changes of cervical vertebral bodies. Grade 1 anterolisthesis of C4 on C5. Lungs: Lung apices are normal. Vasculature: Carotid atheromatous vascular calcifications. Soft tissues: Unremarkable. CT/CT cervical spin wo con* [id number] IMPRESSION: No acute cervical fracture
--- NOTE | 2025-05-31 18:25 | W.ED.NEUROSD ---
HPI - Neuro Symptoms/Deficit General: Chief Complaint: Neuro Symptoms/Deficit Stated Complaint: memory loss / weakness Time Seen by Provider: 05/31/25 17:29 History of Present Illness: Patient is 70-year-old female who presents to the emergency room today with complaints of ambulatory dysfunction, no hallucinations. Context: Patient had additional fall this past Tuesday, 05/25, presented to the emergency room and had a CT of her head, neck, and was cleared from the standpoint. She stated last night she was seeing some things on the wall twist and turn. She continues to have amatory dysfunction. Regarding the fall: Patient stated she slipped/got tripped up in a rug with her dog, fell back on the back of her head, and had a squishy area to the back of her head , finally was able to sit up, and then wham hit the front of my head. She has ecchymosis to the front of her neck, under her right eye. 05/24, MRI MR/MR head wo/w con [id number] IMPRESSION: 1. Normal diffusion imaging. No acute infarct. 2. No enhancing masses or vascular malformations. 3. Extensive T2 and FLAIR signal hyperintensities in the supratentorial white matter which have progressed since 08/14/2024. Most likely related to small vessel disease. 4. Additional small vessel changes bilaterally in the andres. 5. Remote lacunar infarct LEFT thalamus. 6. RIGHT sphenoid sinus disease. 7. No acute intracranial hemorrhage. Associated symptoms: Deny chest pain, headache(s), nausea, vertigo or vomiting Related Data Home Medications ?Medication ?Instructions ?Recorded ?Confirmed duloxetine 60 mg capsule,delayed 60 mg PO DAILY 10/05/22 05/17/25 release rosuvastatin 5 mg tablet (Crestor) 5 mg PO 1XD 10/12/23 05/17/25 calcium 600 mg (as 600 tab PO DAILY 05/12/24 05/17/25 carbonate)-vitamin D3 10 mcg (400 unit) tablet levothyroxine 50 mcg tablet 50 mcg PO ONCE 07/30/24 05/17/25 trazodone 50 mg tablet 50 mg PO BEDTIME 07/30/24 05/17/25 Previous Rx's ?Medication ?Instructions ?Recorded baclofen 20 mg tablet See Rx Instructions .Route 05/19/25 .COMPLEX Pain #1 tab Allergies Allergy/AdvReac Type Severity Reaction Status Date / Time NSAIDS (Non-Steroidal Allergy Intermediate HISTORY OF Verified 05/31/25 17:21 Anti-Inflamma BLEEDING ULCER Review of Systems General: Reports: ROS unobtainable due to mental status Const: Denies: fever(s) or chills ENMT: Denies: throat pain or mouth pain Card: Denies: chest pain or palpitations Resp: Denies: dyspnea or non-productive cough GI: Denies: abdominal pain, nausea or vomiting : Denies: flank pain or difficulty voiding Musc: Reports: limited range of motion; Denies: neck pain, back pain, extremity pain, extremity swelling, joint pain, joint swelling or joint redness Neuro: Reports: weakness in extremities, lack of coordination, difficulty walking, dizziness, confusion and difficulty communicating thoughts; Denies: headache(s), numbness in extremities, sensory changes, frequent falls or vertigo Psych: Denies: anxiety or depression PFS ED PFSH: Medical History (Updated 05/31/25 @ 19:48 by CLINT Stringer) History of hypertension Coronary artery disease Surgical History H/O shoulder surgery Social History Smoking and tobacco/nicotine status: former use of tobacco/nicotine Quit status (tobacco/nicotine): has quit using Second hand smoke exposure: No Alcohol intake: never Substance/Drug Use: never Lives independently: Yes Household members: spouse Marital status: Highest education level completed: High School Graduate Special andreina needs: No Physical Exam Const: COMMON NORMALS: patient oriented x3 and alert EXAM LIMITATIONS: altered mental status GENERAL APPEARANCE: not lethargic ORIENTATION/CONSCIOUSNESS: Yes oriented to person, Yes oriented to place and Yes oriented to time; not lethargic HENMT: COMMON NORMALS: normocephalic; head/scalp not atraumatic (1 cm laceration posterior scalp) HEAD & SCALP: normocephalic; not atraumatic (1 cm laceration posterior scalp) Eye: COMMON NORMALS: Equal, round and reactive pupils present and EOMs intact bilaterally PUPIL: Yes Equal, round and reactive pupils present Neck/C-Spine: COMMON NORMALS: full ROM, supple and no meningeal signs Chest: COMMONS NORMALS: normal inspection of the chest and normal palpation of entire chest wall Resp: COMMON NORMALS: normal respiratory effort, No retractions, No use of accessory muscles and clear to auscultation bilaterally AUSCULTATION: clear to auscultation bilaterally Cardio: COMMON NORMALS: regular rate, regular rhythm and No murmurs present (Cardio) RATE: regular rate RHYTHM: regular rhythm GI: COMMON NORMALS: Normal to inspection, nondistended, normoactive bowel sounds present, Soft to palpation, non-tender and no masses PALPATION: Yes Soft to palpation Extremity: COMMON NORMALS: normal to inspection and full ROM Neuro: COMMON NORMALS: patient oriented x3, CN's II-XII intact bilaterally, moves all extremities and no focal motor deficits SENSORIUM/ORIENTATION: Yes alert, Yes oriented to person, Yes oriented to place, Yes oriented to time, No Orientation impaired, No lethargic, No somnolent and No obtunded MENINGEAL SIGNS: Yes no meningeal signs SPEECH: speech normal GAIT: Yes Normal gait present MOTOR EXAM: 5/5 motor strength present throughout Psych: COMMON NORMALS: negative for cooperative Skin: COMMON NORMALS: no rashes or lesions noted and no wounds GENERAL SKIN EXAM: no rashes or lesions noted Course Vital Signs: Vital signs: Vital Signs Temperature 97.6 F 05/31/25 17:09 Pulse Rate 81 05/31/25 18:30 Respiratory Rate 16 05/31/25 18:30 Blood Pressure 176/96 05/31/25 18:30 Pulse Oximetry 95 05/31/25 18:30 Oxygen Delivery Me thod Room Air 05/31/25 17:09 MDM - Neuro Symptoms/Deficit Medical Decision Making Patient is a 70-year-old female that had transient hallucinations last p.m. On workup here, there was no additional concerns. Patient has full range of motion of her neck. She did have recent fall. Her creatinine is mildly elevated at 1, with baseline 0.7, and dehydration could cause this issue. As well on review of her MRI, patient has microvascular disease. Will add an aspirin daily, encourage increasing fluids, and have her follow-up with her doctor for cognition evaluation. Medical Records I reviewed the patient's medical records. Lab Data I reviewed the patient's lab results. 05/31/25 18:09 05/31/25 18:09 Radiology Impressions Chest X-Ray 05/31/25 17:30 IMPRESSION: No definite acute findings. Cervical Spine CT 05/31/25 18:25 IMPRESSION: No acute cervical fracture Head CT 05/31/25 18: IMPRESSION: No acute intracranial abnormality. Laboratory Results WBC 9.07 10^3/uL (3.29-11.43) 05/31/25 18:09 RBC 3.52 10^6/uL (3.85-5.65) L 05/31/25 18:09 Hgb 10.00 g/dL (11.27-16.99) L 05/31/25 18:09 Hct 31.6 % (36-47) L 05/31/25 18:09 MCV 89.8 fl (85-98) 05/31/25 18:09 MCH 28.4 pg (27-33) 05/31/25 18:09 MCHC 31.6 g/dL (30-55) 05/31/25 18:09 RDW 16.5 % (12.1-15.1) H 05/31/25 18:09 Plt Count 331 10^3/cmm (157-399) 05/31/25 18:09 MPV 10.6 fL (7.4-10.4) H 05/31/25 18:09 Neut % (Auto) 63.3 % 05/31/25 18:09 Lymph % (Auto) 22.4 % 05/31/25 18:09 [place] % (Auto) 11.4 % 05/31/25 18:09 Eos % (Auto) 1.8 % 05/31/25 18:09 Baso % (Auto) 0.8 % 05/31/25 18:09 Neut # (Auto) 5.75 10^3/uL (1.8-7.7) 05/31/25 18:09 Lymph # (Auto) 2.0 10^3/uL (0.8-4.8) 05/31/25 18:09 [place] # (Auto) 1.0 10^3/uL (0.2-0.9) H 05/31/25 18:09 Eos # (Auto) 0.2 10^3/uL (0.0-0.8) 05/31/25 18:09 Baso # (Auto) 0.1 10^3/uL (0.0-0.1) 05/31/25 18:09 Nucleated RBC % (auto) 0 % 05/31/25 18:09 Nucleated RBCs # 0.0 /100WBC 05/31/25 18:09 Sodium 137 mmol/L (136-145) 05/31/25 18:09 Potassium 4.0 mmol/L (3.5-5.1) 05/31/25 18:09 Chloride 98 mmol/L (98-107) 05/31/25 18:09 Carbon Dioxide 27 mmol/L (22-29) 05/31/25 18:09 Anion Gap 16.0 (5-19) 05/31/25 18:09 BUN 20 mg/dL (8-23) 05/31/25 18:09 Creatinine 1.0 mg/dL (0.5-0.9) H 05/31/25 18:09 GFR Calculation 55.0 mL/min (90-130) L 05/31/25 18:09 Glucose 98 mg/dL (65-115) 05/31/25 18:09 Calculated Osmolality 287 mOsm/kg (285-295) 05/31/25 18:09 Lactic Acid 0.8 mmol/L (0.5-2.2) 05/31/25 18:09 Calcium 9.9 mg/dL (8.5-10.5) 05/31/25 18:09 Total Bilirubin 0.2 mg/dL (0.15-1.2) 05/31/25 18:09 AST 19 U/L (0-32) 05/31/25 18:09 ALT 8 U/L (0-33) 05/31/25 18:09 Alkaline Phosphatase 74 U/L (35-105) 05/31/25 18:09 Ammonia 16 umol/L (11-51) 05/31/25 18:09 C-Reactive Protein 3.0 mg/L (0.0-4.9) 05/31/25 18:09 NT-Pro-B Natriuret Pep 396 pg/mL (0-125) H 05/31/25 18:09 Total Protein 7.5 g/dL (6.6-8.7) 05/31/25 18:09 Albumin 4.3 g/dL (3.5-5.2) 05/31/25 18:09 Globulin 3.2 g/dL (1.3-4.6) 05/31/25 18:09 Procalcitonin 0.07 ng/mL (0-0.5) 05/31/25 18:09 Urine Color Yellow (Yellow) 05/31/25 19:05 Urine Appearance Clear (CLEAR) 05/31/25 19:05 Urine pH 5.5 (5-7) 05/31/25 19:05 Ur Specific [place] 1.017 (1.005-1.030) 05/31/25 19:05 Urine Protein Negative (Negative) 05/31/25 19:05 Urine Glucose (UA) Negative (Normal) 05/31/25 19:05 Urine Ketones Trace (Negative) 05/31/25 19:05 Urine Blood Negative (Negative) 05/31/25 19:05 Urine Nitrate Negative (Negative) 05/31/25 19:05 Urine Bilirubin Negative (Negative) 05/31/25 19:05 Urine Urobilinogen 0.2 mg/dL (Negative) 05/31/25 19:05 Ur Leukocyte Esterase 1+ (Negative) A 05/31/25 19:05 Urine RBC 3-5 /hpf (0-2) 05/31/25 19:05 Urine WBC 11-20 /hpf (0-5) H 05/31/25 19:05 Ur Squamous Epith Cells 0-5 /hpf (0-5) 05/31/25 19:05 Urine Bacteria None seen /hpf (NONE) 05/31/25 19:05 Hyaline Casts 4.11 /lpf 05/31/25 19:05 Urine Opiates Screen Negative ng/mL (Negative) 05/31/25 19:05 Ur Barbiturates Screen Negative ng/mL (Negative) 05/31/25 19:05 Ur Phencyclidine Scrn Negative ng/mL (Negative) 05/31/25 19:05 Ur Amphetamines Screen Negative ng/mL (Negative) 05/31/25 19:05 U Benzodiazepines Scrn Negative ng/mL (Negative) 05/31/25 19:05 Urine Cocaine Screen Negative ng/mL (Negative) 05/31/25 19:05 U Marijuana (THC) Screen Negative ng/mL (Negative) 05/31/25 19:05 Ethyl Alcohol < 10 mg/dL (0-10) 05/31/25 18:09 All radiology interpretation(s) finalized by discharge EKG Data EKG 1: Interpretation: Normal sinus rhythm, normal axis Discharge Plan Discharge Patient Disposition: Home Clinical Impression: Delirium, Cerebral microvascular disease, Creatinine elevation Condition: Stable Prescriptions: No Action levothyroxine 50 mcg tablet 50 mcg PO ONCE trazodone 50 mg tablet 50 mg PO BEDTIME duloxetine 60 mg capsule,delayed release(DR/EC) 60 mg PO DAILY rosuvastatin [Crestor] 5 mg tablet 5 mg PO 1XD baclofen 20 mg tablet See Rx Instructions .ROUTE .COMPLEX Qty: 1 0RF Rx Instructions: Taper off: 1/2 tab twice daily for 4 days, then 1/2 tab daily for 4 days calcium carbonate-vitamin D3 600 mg-10 mcg (400 unit) tablet 600 tab PO DAILY Discharge Orders: Discharge ED (Routine); Ordered 05/31/25 Ordered By: Ruma Pratt Referrals: Mony Mariscal MD [Primary Care Provider, Internal Medicine] Discharge Diet: Usual diet Discharge Activity: Resume usual activity Patient Instructions: Mild Cognitive Impairment: New Diagnosis (DC), Patient Portal & [place] Instructions Activity Restrictions/Additional Instructions: - Follow-up with your doctor regarding cognitive issues and referral to neurology - Take a baby coated aspirin daily -Your kidneys are slightly up, increase your fluid intake. Drink additional 1 L today. This needs to be noncaffeinated. - Return to ED with worsening confusion, fever greater than 100.4 ?F - Hold off on any medications that can cause confusion such as baclofen. This is a muscle relaxer. Consider decreasing her trazodone to half the dose. Thank you for choosing [facility] for your healthcare needs today. You have been screened and evaluated and felt safe for discharge. Health conditions do change or evolve sometimes and as such it is important that you follow up with your Primary Doctor to be re checked, 3-5 days is a general good time frame for follow up. You are always welcome to return to the ED for re assessment if your symptoms are worsening or you have new concerns Print Language: Slovenian Coding Level of Care Code ED Traffic Control Officer for Angelique Torres
[2025-05-31 18:30] VITALS: BP 176/96; PULSE 81; RESP 16; O2SAT 95
[2025-05-31 18:41] LABS: Lactic Sepsis W/Reflex 0.8 mmol/L (0.5-2.2)
[2025-05-31 18:51] LABS: Ammonia 16 umol/L (11-51); NT Pro B Type Natriuretic Pept 396 pg/mL (0-125); Procalcitonin 0.07 ng/mL (0-0.5)
[2025-05-31 19:02] LABS: Alanine Aminotransferase 8 U/L (0-33); Albumin Level 4.3 g/dL (3.5-5.2); Alkaline Phosphatase 74 U/L (35-105); Anion Gap 16.0 (5-19); Aspartate Amino Transferase 19 U/L (0-32); Blood Urea Nitrogen 20 mg/dL (8-23); Calcium 9.9 mg/dL (8.5-10.5); Carbon Dioxide 27 mmol/L (22-29); Chloride 98 mmol/L (98-107); Creatinine Clr Calc Pharmacy 42.8374; Globulin 3.2 g/dL (1.3-4.6); Glucose 98 mg/dL (65-115); Osmolality Calculated 287 mOsm/kg (285-295); Potassium 4.0 mmol/L (3.5-5.1); Sodium 137 mmol/L (136-145); Total Protein 7.5 g/dL (6.6-8.7)
[2025-05-31 19:03] LABS: Alcohol Level < 10 mg/dL (0-10)
[2025-05-31 19:11] LABS: Glucose Urine UA Negative (Normal); Nitrate Urine Negative (Negative); Specific Gravity, Urine 1.017 (1.005-1.030)
[2025-05-31 19:20] LABS: Add Urine Microscopic? YES; PCP Screen Urine Negative (Negative)
== END 2025-05-31 20:16 | disposition home or self-care (01) ==
PROVIDERS: Emergency Provider Physician Assistant; PCP Internal Medicine
DX: R41.0 Disorientation, unspecified (principal); I67.89 Other cerebrovascular disease; R79.89 Other specified abnormal findings of blood chemistry; Z87.891 Personal history of nicotine dependence; I25.10 Atherosclerotic heart disease of native coronary artery without angina pectoris; I10 Essential (primary) hypertension
CPT/HCPCS: 36415; 70450; 71045; 72125; 80053; 80306; 80307; 81001; 82140; 83605; 83880; 84145; 85025; 86140; 87086; 93005; 99285

== ENCOUNTER 2025-06-11 08:22 | Outpatient (CLI) | payer MEDICARE, SELFPAY ==
--- NOTE | 2025-06-11 08:35 | MR_ITS ---
WS: [id number] MRI CERVICAL SPINE NONCONTRAST TECHNIQUE: Sagittal T1, T2 and STIR imaging. Axial T2, gradient, and fiesta imaging. CLINICAL INFORMATION: spondylosis COMPARISON: MRI 2019 FINDINGS: Moderate spondylitic changes progressed since 2020. Grade 1 anterolisthesis C3 on C4 and C4 on C5. Slight retrolisthesis C5 on C6. Small central protrusion in the upper thoracic spine at T2-T3 is progressed. Cord signal is normal. Degenerative edema at the C1-2 articulation and craniocervical junction. C2-C3: Mild facet arthropathy. Mild LEFT bony foraminal narrowing. C3-C4: Mild disc bulge with endplate ridging. Moderate facet arthropathy. LEFT facet edema compatible with synovitis. Mild LEFT bony foraminal narrowing. C4-C5: Grade 1 anterolisthesis. Disc osteophyte complex. Moderate facet arthropathy. Mild bilateral foraminal narrowing. C5-C6: Disc osteophyte complex with endplate ridging. Moderate LEFT bony foraminal narrowing. Moderate facet arthropathy with uncovertebral joint hypertrophy. Mild RIGHT foraminal narrowing. C6-C7: Disc osteophyte complex eccentric to the LEFT. Mild to moderate LEFT bony foraminal narrowing. Mild RIGHT foraminal narrowing. Spinal canal is patent. Uncovertebral joint hypertrophy with moderate facet arthropathy. C7-T1: Grade 1 anterolisthesis. Mild LEFT foraminal narrowing. Spinal canal and RIGHT foramen are patent. T1-T2: Mild disc bulging. Mild LEFT and no significant RIGHT foraminal narrowing. Mild facet arthropathy. T2-T3: RIGHT paracentral protrusion with slight indentation on the thoracic cord. Spinal canal is patent. Mild bilateral foraminal narrowing. Degenerative endplate edema T2-3 Visualized brain stem structures: Small vessel changes in the andres. Mucosal thickening in the sphenoid sinus partially visualized. Prevertebral soft tissues: Normal. MR/MR cervical spin wo con* [id number] IMPRESSION: 1. Progressed moderate spondylitic changes. Grade 1 anterolisthesis C3 on C4 a nd C4 on C5. 2. Progressed RIGHT paracentral protrusion T2-3 with slight indentation on the RIGHT ventral thoracic cord. Mild bilateral T2-3 bony foraminal narrowing. 3. 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 4. New LEFT C3-4 synovitis likely degenerative or inflammatory. 5. Moderate LEFT C5-6 and mild to moderate LEFT C6-7 bony foraminal narrowing. 6. No high-grade central canal stenosis.
== END 2025-06-11 08:23 | disposition home or self-care (01) ==
LOC: RAD 08:23
PROVIDERS: PCP Internal Medicine; Visit Provider Internal Medicine
DX: M51.24 Other intervertebral disc displacement, thoracic region (principal); M43.12 Spondylolisthesis, cervical region; G95.89 Other specified diseases of spinal cord; M48.04 Spinal stenosis, thoracic region; M47.21 Other spondylosis with radiculopathy, occipito-atlanto-axial region; M48.02 Spinal stenosis, cervical region
CPT/HCPCS: 72141